=== PATIENT | female | born 1935 | race Caucasian/White ===

== ENCOUNTER 2022-07-25 09:03 | Inpatient (IN) ==
--- NOTE | 2022-07-25 10:39 | CT Scan Report ---
CT OF THE HEAD WITHOUT CONTRAST CLINICAL HISTORY: Fall. COMPARISON STUDY: No previous studies for comparison. TECHNIQUE: Helical axial images of the head were obtained without IV contrast. Automated exposure con trol was utilized for the study. A dose lowering technique was utilized adhering to the principles o f ALARA. FINDINGS: No acute intracranial hemorrhage, midline shift or mass effect is present. White matter hyp odensity suggests small vessel disease. The ventricular system is unremarkable. The basal cisterns ar e patent. No extra-axial collections are present. There are no findings to suggest acute dural sinus thrombosis or acute territorial infarct. There is no acute calvarial fracture. There is mild sinus mu cosal thickening. IMPRESSION: 1. No acute intracranial findings. 2. No acute calvarial fracture. ACT 112: Negative or not required by law. Electronically signed by: Conrado Mckeon M.D. 07/25/2022 10:37 AM
--- NOTE | 2022-07-25 10:47 | CT Scan Report ---
CERVICAL SPINE CT CT DOSE: 1132.33 mGy.cm HISTORY: fall TECHNIQUE: Multiaxial CT images of the cervical spine were performed and reformatted in the sagittal and coronal plane without the use of contrast. A dose lowering technique was utilized adhering to th e principles of ALARA. COMPARISON: None. FINDINGS: No fractures. No subluxation. Prevertebral soft tissues and the C1-C2 interval are intact. No pneumothorax. Moderate to severe degenerative changes within the cervical spine. Emphysema. IMPRESSION: No fractures within the cervical spine. ACT 112: Negative or not required by law. Electronically signed by: Franco Motta M.D. 07/25/2022 10:44 AM
--- NOTE | 2022-07-25 10:51 | CT Scan Report ---
ABDOMEN AND PELVIS CT WITHOUT CONTRAST CT DOSE: HISTORY: fall TECHNIQUE: Multiaxial CT images of the abdomen and pelvis were performed without contrast. A dose lo wering technique was utilized adhering to the principles of ALARA. COMPARISON STUDY: Abdomen and pelvis CT 11/20/2015. FINDINGS: The lung bases are clear. No pneumoperitoneum. No pneumatosis. Mildly displaced left superi or and inferior pubic rami fractures. Small pericardial effusion. Small amount of hemorrhage within t he left anterolateral extraperitoneal space likely secondary to the left pubic ring fractures. No sig nificant mass effect along the bladder. The bladder, uterus, and adnexa are unremarkable. No pelvic f ree fluid. 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 There is an ectatic abdominal aorta measuring up to 2.1 cm. A few small gallstones. No gallbladder w all thickening. The unenhanced liver, spleen, and pancreas are unremarkable. Bilateral adrenal gland thickening is likely age-related. There is an atrophic left kidney. Normal right kidney. No hydroneph rosis. No retroperitoneal lymphadenopathy. No bowel wall thickening or obstruction. The visualized ap pendix is unremarkable. IMPRESSION: 1. Mildly displaced left superior and inferior pubic rami fractures with a small amount of adjacent h emorrhage. 2. Additional findings as described above. ACT 112: Negative or not required by law. Electronically signed by: Franco Motta M.D. 07/25/2022 10:49 AM
--- NOTE | 2022-07-25 10:52 | XRay Report ---
XR chest 1V portable HISTORY: fall COMPARISON: Chest 01/27/2021. FINDINGS: No pneumothorax. No pleural effusions. The heart is normal in size. Emphysema. Degenerative changes within the shoulders. The lungs are clear. IMPRESSION: No acute process. ACT 112: Negative or not required by law. Electronically signed by: Franco Mtota M.D. 07/25/2022 10:51 AM
[2022-07-25 10:53] LABS: Albumin Globulin Ratio 1.1 (0.9-2); Albumin Level 3.9 gm/dl (3.4-5.0); BUN Creatinine Ratio 18.7 (10-20); Bilirubin,Total 0.8 mg/dl (0.2-1.0); Calcium 9.5 mg/dl (8.5-10.1); Creatinine Clr Calc Pharmacy 21.1 ml/min; Est GFR (African American) 41.2 ml/min; Est GFR (Non-African American) 35.5 ml/min; Globulin 3.6 gm/dl (2.5-4.0); Magnesium 1.6 mg/dl (1.7-2.4); Potassium 4.1 mmol/L (3.5-5.1); Total Protein 7.5 gm/dl (6.0-8.3)
--- NOTE | 2022-07-25 10:53 | XRay Report ---
XR femur LT 2V routine CLINICAL HISTORY: fall, Pain COMPARISON: CT of the abdomen and pelvis November 20, 2015. FINDINGS: There are acute mildly displaced fractures of the left superior and inferior pubic rami. N o acute fracture within the left femur is noted. Alignment of the left hip and left knee is anatomic. Extensive vascular calcification is incidentally noted. There is no left knee joint effusion. Chondr ocalcinosis within the menisci of the left knee is noted with severe patellofemoral compartment joint space narrowing. IMPRESSION: 1. Acute mildly displaced fractures of the left superior and inferior pubic rami. 2. No acute fracture within the left femur. ACT 112: Negative or not required by law. Electronically signed by: Conrado Mckeon M.D. 07/25/2022 10:52 AM
[2022-07-25 10:54] LABS: Basophils # (auto) 0.03 K/uL (0-0.2); Basophils % (auto) 0.4 %; Hematocrit (blood only) 45.9 % (37.0-47.0); Hemoglobin 15.1 g/dl (12.0-16.0); Immature Granulocytes # (auto) 0.03 K/uL (0.01-0.20); Immature Granulocytes % (auto) 0.4 %; Lymphocytes # (auto) 0.94 K/uL (1.2-3.4); Lymphocytes % (auto) 11.6 %; Mean Corpuscular Hgb Conc 32.9 g/dL (32.0-36.0); Mean Corpuscular Volume 88.3 fL (80.0-100.0); Mean Platelet Volume 10.5 fL (9.4-12.4); Monocytes # (auto) 0.87 K/uL (0.11-0.59); Monocytes % (auto) 10.8 %; Neutrophils # (auto) 6.21 K/uL (1.40-6.50); Neutrophils % (auto) 76.8 %; Platelet Count 202 K/uL (130-400); RDW Coefficient of Variation 13.2 % (11.5-14.5); RDW Standard Deviation 42.7 fL (36.4-46.3); White Blood Count 8.08 K/ul (4.8-10.8)
--- NOTE | 2022-07-25 10:56 | XRay Report ---
XR femur RT 2V routine CLINICAL HISTORY: fall, Pain COMPARISON: CT of the abdomen and pelvis November 20, 2015. FINDINGS: There is no acute fracture within the right femur. Severe right hip osteoarthritis is note d with chondrocalcinosis within the menisci and severe patellofemoral compartment joint space narrowi ng. There is severe right hip osteoarthritis. IMPRESSION: 1. No acute fracture within the right femur. 2. Severe right knee and hip osteoarthritis. ACT 112: Negative or not required by law. Electronically signed by: Conrado Mckeon M.D. 07/25/2022 10:55 AM
--- NOTE | 2022-07-25 10:56 | Emergency Department Note ---
Impression & Plan Fall, Fracture of multiple pubic rami, Ambulatory dysfunction, CKD (chronic kidney disease) (Ruled Out): CKD (chronic kidney disease), stage IV ED Provider Note Provider: Jourdan Greco MD DATE OF SERVICE: 07/25/2022 CHIEF COMPLAINT: Pain, unable to walk HISTORY OF PRESENT ILLNESS: Patient is a 87-year-old female history of CKD, COPD, and CAD presenting here via ambulance from home. Patient's daughter is present as well provides additional information. Patient is self not the best historian. EMS and patient's daughter who she does not like this and report patient is complaining of right and then left hip pain has been able to walk. Had some pain in the left thigh region for some time. Patient's daughter reports the patient evidently had some kind of fall yesterday and had some slurred speech and left-sided facial droop. Speech and facial droop is resolved. Patient's daughter states she did get a call at 9 PM last night the patient was taken to [facility] yesterday evening for evaluation diagnosed with UTI and she was to come pick her up. Patient herself has been resting overnight and then slid to the ground this morning but denies new significant fall or trauma. Patient denies significant abdominal or chest pain. Reports pain currently around the left hip region. Denies pain lower in the legs or significant arm or shoulder pain. Denies headache. She was prescribed Keflex antibiotic yesterday but is not picked up from the pharmacy as it was closed given the hour. Patient able to take several steps but not ambulatory to the bathroom by nursing report upon arrival here. PAST MEDICAL HISTORY: As noted above MEDICATIONS: Reviewed medications the patient brings with her she takes at home SOCIAL HISTORY: Resides at home with a daughter PHYSICAL EXAM: GENERAL: alert and oriented in no acute distress on stretcher however is not a good historian to recent events Head: normocephalic and atraumatic EYES: No injection, discharge or icterus. PERRL, EOMI. NECK: Trachea midline. Supple without significant midline tenderness ENT: Mucous membranes pink and moist. Pharynx without erythema or exudate. A dentulous LUNGS: Airway patent. No retractions. Breath sounds clear with good air entry bilaterally. HEART: Regular rate and rhythm. No chest wall tenderness ABDOMEN: Soft and non-tender, without guarding or rebound. BACK: No midline tenderness, no SI joint tenderness. No bilateral flank tenderness. SKIN: Acyanotic, warm, dry EXTREMITIES: Without swelling, tenderness or deformity with some scattered bruising noted to the left forearm with soft compartments and no significant bony tenderness to the left hand, wrist, forearm, or elbow. Good range of motion here and no tenderness of the left shoulder. Patient left lower extremity with some pain with ROM around the left hip and some left greater trochanteric pain. NEUROLOGICAL: No focal deficits. No aphasia. No facial droop or slurred speech. Normal strength and tone in the extremities. Sensation to gross touch normal. EK beats minute sinus tachycardia. No PVC or PAC. No acute ST segment elevation with some nonspecific T wave changes. QTc 448. CONTINUOUS CARDIAC MONITORING: was ordered and showed a heart rate of 90s-110s bpm in normal sinus rhythm to sinus tachycardia GCS 15. Patient's laboratory studies and imaging reviewed. Differential includes Fracture, dislocation, contusion, intra-abdominal, pneumothorax, intrathoracic, intracranial, neurologic, compartment syndrome, rhabdomyolysis, as well as other pathologies. IMPRESSION/MEDICAL DECISION MAKING: Patient reportedly evaluated yesterday diagnosed with UTI at outside hospital. Evidently suffered some kind of fall. Slid to the ground but no significant trauma today. Reporting some left hip discomfort. Some bruising to left forearm but no compartment syndrome. No significant bony tenderness good range of motion the upper extremities doubt injury here. CT of the head and cervical spine completed given the possible history of fall and also with some slurred speech and facial droop yesterday. No acute neurological symptoms noted here with family states the patient has had some decline in memory over time. May be somewhat worsened recently. Question if UTI could be driving this. X-rays of the pelvis and hip obtained as well given the possible fall and her pain here. Feels gross touch in the lower extremities and do not see other obvious injury to the lower extremities. EKG and troponin sent but lower suspicion for acute ACS. CKD chronically noted. No acute electrolyte abnormality otherwise noted or signs of significant rhabdomyolysis based on CK or hepatitis based on labs. Mild hypomagnesemia of 1.6. Imaging with evidence of mildly displaced left superior and inferior pubic rami fractures with a small amount of adjacent hemorrhage. Chest x-ray reviewed without evidence of significant pneumothorax or chest wall trauma noted by myself or radiology. No femur fractures noted by radiology on imaging of the femurs. Pain likely related to her pubic rami fracture. Given this given a dose of Tylenol for pain. Her ambulatory dysfunction likely related this and discussed likely need for rehab. Patient and family updated. Urinalysis ordered pending collection to exclude UTI. In shared decision making discussed with hospitalist for further care here given her pain and ambulatory dysfunction. DIAGNOSIS: Fall, pubic rami fractures, ambulatory dysfunction DISPOSITION: Hospitalist will evaluate Patient was agreeable with this plan. Past Med/Surg History Medical History CAD (coronary artery disease) CKD (chronic kidney disease), stage IV Colitis COPD (chronic obstructive pulmonary disease) COPD exacerbation Cough Elevated troponin Hyperlipidemia Hypoxia PVD (peripheral vascular disease) Retroperitoneal hematoma Right flank pain Social History (Updated 01/31/21 @ 07:41 by Charis Davey MD) Smoking Status: Former smoker Tobacco Type: Cigarettes Preferred Language: [place] Current Living Situation: Family Current Living Situation Comment: lives with daughter Feels Safe at Home: Yes Allergies Allergies Allergy/AdvReac Type Severity Reaction Status Date / Time No Known Allergies Allergy Verified 01/27/21 11:31 Home Meds Home Medications Medication Instructions Recorded Confirmed atorvastatin 40 mg tablet 40 mg PO DAILY 11/10/19 07/25/22 colestipol 1 gram tablet 2 g PO BID 11/10/19 07/25/22 omeprazole 20 mg capsule,delayed 20 mg PO DAILY 11/10/19 07/25/22 release sulfasalazine 500 mg tablet 500 mg PO BID 11/10/19 07/25/22 amlodipine 10 mg tablet 5 mg PO DAILY 01/27/21 07/25/22 hydrochlorothiazide 12.5 mg capsule 12.5 mg PO DAILY 01/27/21 07/25/22 metoprolol succinate 25 mg 25 mg PO DAILY 07/25/22 07/25/22 tablet,extended release 24 hr Results & Data (ED) Vital Signs Vital Signs - 24 hr 07/25/22 09:12 07/25/22 10:13 07/25/22 11:00 Temperature 36.7 C Temperature Source Oral Pulse Rate 96 H 110 H 102 H Pulse Rate from SpO2 Sensor 108 H Respiratory Rate 16 14 21 Respiratory Effort / Characteristics Non-Labored Spontaneous Respiratory Depth Normal Respiratory Pattern Regular Blood Pressure 172/112 H Blood Pressure Mean 132 Blood Pressure Position Sitting Pulse Oximetry 93 94 Oxygen Delivery Method Room Air Sepsis Recent Fever Within 48 Hours No Sepsis New/Unexplained Change in Mental Status No Sepsis Action Taken by Nursing No Action Required 07/25/22 12:00 Temperature Temperature Source Pulse Rate 110 H Pulse Rate from SpO2 Sensor Respiratory Rate 22 Respiratory Effort / Characteristics Respiratory Depth Respiratory Pattern Blood Pressure 158/92 H Blood Pressure Mean 114 Blood Pressure Position Pulse Oximetry Oxygen Delivery Method Sepsis Recent Fever Within 48 Hours Sepsis New/Unexplained Change in Mental Status Sepsis Action Taken by Nursing Laboratory Data 07/25/22 10:10 07/25/22 10:10 Lab Results 07/25/22 07/25/22 07/25/22 Range/Units 10:10 10:10 10:10 WBC 8.08 (4.8-10.8) K/ul RBC 5.20 (4.20-5.40) M/uL Hgb 15.1 (12.0-16.0) g/dl Hct 45.9 (37.0-47.0) % MCV 88.3 (80.0-100.0) fL MCH 29.0 (25.0-34.0) pg MCHC 32.9 (32.0-36.0) g/dL RDW Std Deviation 42.7 (36.4-46.3) fL RDW Coeff of Saulo 13.2 (11.5-14.5) % Plt Count 202 (130-400) K/uL MPV 10.5 (9.4-12.4) fL Immature Gran % (Auto) 0.4 % Neut % (Auto) 76.8 % Lymph % (Auto) 11.6 % [place] % (Auto) 10.8 % Eos % (Auto) 0.0 % Baso % (Auto) 0.4 % Neut # (Auto) 6.21 (1.40-6.50) K/uL Lymph # (Auto) 0.94 L (1.2-3.4) K/uL [place] # (Auto) 0.87 H (0.11-0.59) K/uL Eos # (Auto) 0.00 (0-0.50) K/uL Baso # (Auto) 0.03 (0-0.2) K/uL Immature Gran # (Auto) 0.03 (0.01-0.20) K/uL PT 11.1 (9.0-12.0) Seconds INR 1.0 (0.9-1.1) Sodium 141 (136-145) mmol/L Potassium 4.1 (3.5-5.1) mmol/L Chloride 104 (98-107) mmol/L Carbon Dioxide 30 (21-32) mmol/L Anion Gap 7 (3-11) BUN 25 H (6-23) mg/dl Creatinine 1.34 H (0.6-1.2) mg/dl Est Cr Clr Drug Dosing 21.1 ml/min Est GFR ( Amer) 41.2 ml/min Est GFR (Non-Af Amer) 35.5 ml/min BUN/Creatinine Ratio 18.7 (10-20) Glucose 92 (70-99(Fasting)) mg/dl Calcium 9.5 (8.5-10.1) mg/dl Magnesium 1.6 L (1.7-2.4) mg/dl Total Bilirubin 0.8 (0.2-1.0) mg/dl AST 24 (13-39) U/L ALT 14 (7-52) U/L Alkaline Phosphatase 72 (34-104) U/L Total Creatine Kinase 199 H (26-192) U/L Troponin I High Sens 23.1 H (0-14) pg/ml Total Protein 7.5 (6.0-8.3) gm/dl Albumin 3.9 (3.4-5.0) gm/dl Globulin 3.6 (2.5-4.0) gm/dl Albumin/Globulin Ratio 1.1 (0.9-2) TSH (0.300-4.500) uIu/ml Free T4 (0.61-1.60) ng/dl SARS-CoV-2, RNA, NAAT (NEGATIVE) 07/25/22 07/25/22 Range/Units 10:10 10:10 WBC (4.8-10.8) K/ul RBC (4.20-5.40) M/uL Hgb (12.0-16.0) g/dl Hct (37.0-47.0) % MCV (80.0-100.0) fL MCH (25.0-34.0) pg MCHC (32.0-36.0) g/dL RDW Std Deviation (36.4-46.3) fL RDW Coeff of Saulo (11.5-14.5) % Plt Count (130-400) K/uL MPV (9.4-12.4) fL Immature Gran % (Auto) % Neut % (Auto) % Lymph % (Auto) % [place] % (Auto) % Eos % (Auto) % Baso % (Auto) % Neut # (Auto) (1.40-6.50) K/uL Lymph # (Auto) (1.2-3.4) K/uL [place] # (Auto) (0.11-0.59) K/uL Eos # (Auto) (0-0.50) K/uL Baso # (Auto) (0-0.2) K/uL Immature Gran # (Auto) (0.01-0.20) K/uL PT (9.0-12.0) Seconds INR (0.9-1.1) Sodium (136-145) mmol/L Potassium (3.5-5.1) mmol/L Chloride (98-107) mmol/L Carbon Dioxide (21-32) mmol/L Anion Gap (3-11) BUN (6-23) mg/dl Creatinine (0.6-1.2) mg/dl Est Cr Clr Drug Dosing ml/min Est GFR ( Amer) ml/min Est GFR (Non-Af Amer) ml/min BUN/Creatinine Ratio (10-20) Glucose (70-99(Fasting)) mg/dl Calcium (8.5-10.1) mg/dl Magnesium (1.7-2.4) mg/dl Total Bilirubin (0.2-1.0) mg/dl AST (13-39) U/L ALT (7-52) U/L Alkaline Phosphatase (34-104) U/L Total Creatine Kinase (26-192) U/L Troponin I High Sens (0-14) pg/ml Total Protein (6.0-8.3) gm/dl Albumin (3.4-5.0) gm/dl Globulin (2.5-4.0) gm/dl Albumin/Globulin Ratio (0.9-2) TSH 4.645 H (0.300-4.500) uIu/ml Free T4 1.21 (0.61-1.60) ng/dl SARS-CoV-2, RNA, NAAT NEGATIVE (NEGATIVE) Administered Medications Discontinued Medications Acetaminophen (Acetaminophen 500 Mg Tab) 1,000 mg PO NOW STA Stop: 07/25/22 11:26 Last Admin: 07/25/22 13:22 Dose: Not Given Documented By: RDD Imaging Data Radiologist's Impression: Abdomen/Pelvis CT 07/25/22 09:[address] WITHOUT CONTRAST CT DOSE: HISTORY: fall TECHNIQUE: Multiaxial CT images of the abdomen and pelvis were performed without contrast. A dose lowering technique was utilized adhering to the principles of ALARA. COMPARISON STUDY: Abdomen and pelvis CT 11/20/2015. FINDINGS: The lung bases are clear. No pneumoperitoneum. No pneumatosis. Mildly displaced left superior and inferior pubic rami fractures. Small pericardial effusion. Small amount of hemorrhage within the left anterolateral extraperitoneal space likely secondary to the left pubic ring fractures. No s ignificant mass effect along the bladder. The bladder, uterus, and adnexa are unremarkable. No pelvic free fluid. 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 There is an ectatic abdominal aorta measuring up to 2.1 cm. A few small gallstones. No gallbladder wall thickening. The unenhanced liver, spleen, and pancreas are unremarkable. Bilateral adrenal gland thickening is likely age-related. There is an atrophic left kidney. Normal right kidney. No hydronephrosis. No retroperitoneal lymphadenopathy. No bowel wall thickening or obstruction. The visualized appendix is unremarkable. IMPRESSION: 1. Mildly displaced left superior and inferior pubic rami fractures with a small amount of adjacent hemorrhage. 2. Additional findings as described above. ACT 112: Negative or not required by law. Electronically signed by: Franco Motta M.D. 07/25/2022 10:[address] 07/25/22 09:[address] DOSE: 1132.33 mGy.cm HISTORY: fall TECHNIQUE: Multiaxial CT images of the cervical spine were performed and reformatted in the sagittal and coronal plane without the use of contrast. A dose lowering technique was utilized adhering to the principles of ALARA. COMPARISON: None. FINDINGS: No fractures. No subluxation. Prevertebral soft tissues and the C1-C2 interval are intact. No pneumothorax. Moderate to severe degenerative changes within the cervical spine. Emphysema. IMPRESSION: No fractures within the cervical spine. ACT 112: Negative or not required by law. Electronically signed by: Franco Motta M.D. 07/25/2022 10:44 AM Chest X-Ray 07/25/22 09:44 XR chest 1V portable HISTORY: fall COMPARISON: Chest 01/27/2021. FINDINGS: No pneumothorax. No pleural effusions. The heart is normal in size. Emphysema. Degenerative changes within the shoulders. The lungs are clear. IMPRESSION: No acute process. ACT 112: Negative or not required by law. Electronically signed by: Franco Motta M.D. 07/25/2022 10:51 AM Femur X-Ray 07/25/22 09:44 XR femur RT 2V routine CLINICAL HISTORY: fall, Pain COMPARISON: CT of the abdomen and pelvis November 20, 2015. FINDINGS: There is no acute fracture within the right femur. Severe right hip osteoarthritis is noted with chondrocalcinosis within the menisci and severe patellofemoral compartment joint space narrowing. There is severe right hip osteoarthritis. IMPRESSION: 1. No acute fracture within the right femur. 2. Severe right knee and hip osteoarthritis. ACT 112: Negative or not required by law. Electronically signed by: Conrado Mckeon M.D. 07/25/2022 10:55 AM Femur X-Ray 07/25/22 09:44 XR femur LT 2V routine CLINICAL HISTORY: fall, Pain COMPARISON: CT of the abdomen and pelvis November 20, 2015. FINDINGS: There are acute mildly displaced fractures of the left superior and inferior pubic rami. No acute fracture within the left femur is noted. Alignment of the left hip and left knee is anatomic. Extensive vascular calcification is incidentally noted. There is no left knee joint effusion. Chondrocalcinosis within the menisci of the left knee is noted with severe patellofemoral compartment joint space narrowing. IMPRESSION: 1. Acute mildly displaced fractures of the left superior and inferior pubic rami. 2. No acute fracture within the left femur. ACT 112: Negative or not required by law. Electronically signed by: Conrado Mckeon M.D. 07/25/2022 10:[address] 07/25/22 09:44 CT OF THE HEAD WITHOUT CONTRAST CLINICAL HISTORY: Fall. COMPARISON STUDY: No previous studies for comparison. TECHNIQUE: Helical axial images of the head were obtained without IV contrast. Automated exposure control was utilized for the study. A dose lowering technique was utilized adhering to the principles of ALARA. FINDINGS: No acute intracranial hemorrhage, midline shift or mass effect is present. White matter hypodensity suggests small vessel disease. The ventricular system is unremarkable. The basal cisterns are patent. No extra-axial santa ections are present. There are no findings to suggest acute dural sinus thrombosis or acute territorial infarct. There is no acute calvarial fracture. There is mild sinus mucosal thickening. IMPRESSION: 1. No acute intracranial findings. 2. No acute calvarial fracture. ACT 112: Negative or not required by law. Electronically signed by: Conrado Mckeon M.D. 07/25/2022 10:37 AM Discharge Plan Visit Data Chief Complaint: Urinary Symptoms ED Provider: Jourdan Greco Discharge Problem: Fall, Fracture of multiple pubic rami, Ambulatory dysfunction, CKD (chronic kidney disease) Discharge Problem: (Ruled Out): CKD (chronic kidney disease), stage IV Patient Disposition: Admitted As Inpatient Discharge Instructions Interventions: ED Discharge Assessment Last Done: 07/25/22 14:08
[2022-07-25 10:59] LABS: Troponin I High Sensitivity 23.1 pg/ml (0-14)
[2022-07-25 11:04] LABS: Prothrombin Time 11.1 Seconds (9.0-12.0)
[2022-07-25 11:08] LABS: Thyroid Stimulating Hormone 4.645 uIu/ml (0.300-4.500)
[2022-07-25] MEDS ORDERED: ACETAMINOPHEN 500 MG TAB PO STA (11:25)
[2022-07-25 11:56] LABS: T4 Free Thyroxine 1.21 ng/dl (0.61-1.60)
--- NOTE | 2022-07-25 12:01 | History & Physical Report ---
Date of Service July 25, 2022 Assessment & Plan (1) Fall: (2) Fracture of multiple pubic rami: Plan: Unwitnessed fall Pelvic fracture with adjacent hemorrhage Ambulatory dysfunction secondary to above --CT head:No acute intracranial findings.. No acute calvarial fracture. --Left Femur:Acute mildly displaced fractures of the left superior and inferior pubic rami. No acute fracture within the left femur. --Right Femur:No acute fracture within the right femur. Severe right knee and hip osteoarthritis. --CXR:No acute process. --CT ABD:Mildly displaced left superior and inferior pubic rami fractures with a small amount of adjacent hemorrhage. --Neck CT:No fractures within the cervical spine. -Fall precautions, PT OT Orthopedics consulted to help with recommendations for possible Brace Hypertensive urgency Secondary to missed hypertension meds Pain could be contributing as well Resume home medications Monitor Hypomagnesemia Replete electrolytes as needed Mild troponin elevation likely secondary to CKD, hypertensive urgency Denies any chest pain, dyspnea Trend cardiac enzymes Mild elevation of CK Likely secondary to trauma Hold statin Monitor CK Suspected UTI Urine analysis pending We will consider antibiotics if UA suggestive of UTI COPD Noncompliant with recommendations Currently not on medications Currently not using home oxygen as previously recommended Collagenous colitis Continue sulfasalazine, colestipol GERD Continue Protonix CKD stage IV Baseline creatinine ~ 1.6 Monitor renal function Avoid nephrotoxic agents as able Coronary artery disease S/P stent Renal artery stenosis As per records Currently not on Aspirin Statin on hold due to elevated CK DVT Px SCDs for now Re: Pelvic hemorrhage CODE STATUS DNI/DNR as per my discussion with patient and family History of Present Illness Chief Complaint: Fall, Ambulatory dysfunction Primary Care Provider: Katelyn Orellana DO Patient is an 87-year-old female with history of coronary artery disease, COPD, CKD, renal artery stenosis, hypertension, GERD, dyslipidemia, collagenous colitis, chronic oxygen dependency (currently not using) and other medical problems presents with history of fall and ambulatory dysfunction. Patient is a poor historian. Most of the history is obtained from patient's daughter at bedside. As per the patient's daughter, patient had an unwitnessed fall yesterday. Patient is unsure about the events prior to the fall. She denies any dizziness, head trauma, loss of consciousness. Since the fall patient has been having difficulty with ambulation associated with hip pain. Patient was also thought to have a transient slurred speech associated with facial droop although daughter believes it could be unreliable history. Patient was evaluated at [facility] yesterday and was thought to have urinary tract infection and was discharged home. Patient was to start on Keflex which patient has not taken yet. Patient had slid to the ground this morning but denies any significant trauma. Denies any history of chest pain, dyspnea, dizziness, pedal edema, cough, hemoptysis, fever, chills, headache, weakness, numbness, change in vision, double/blurry vision, vertigo, bowel/bladder incontinence, nausea, v omiting, abdominal pain, blood in stools, diarrhea, dysuria, hematuria, recent change in medications. Patient admits to not taking her home medications this morning. She also reports has not been evaluated by her PCP for about 2 years. Patient stopped taking medications for COPD and has not been currently using oxygen as previously recommended. Allergies Allergy/AdvReac Type Severity Reaction Status Date / Time No Known Allergies Allergy Verified 01/27/21 11:31 Home Medications Medication Instructions Recorded Confirmed Type atorvastatin 40 mg tablet 40 mg PO DAILY 11/10/19 07/25/22 History colestipol 1 gram tablet 2 g PO BID 11/10/19 07/25/22 History omeprazole 20 mg capsule,delayed 20 mg PO DAILY 11/10/19 07/25/22 History release sulfasalazine 500 mg tablet 500 mg PO BID 11/10/19 07/25/22 History amlodipine 10 mg tablet 5 mg PO DAILY 01/27/21 07/25/22 History hydrochlorothiazide 12.5 mg capsule 12.5 mg PO DAILY 01/27/21 07/25/22 History metoprolol succinate 25 mg 25 mg PO DAILY 07/25/22 07/25/22 History tablet,extended release 24 hr Past Med/Surg History Medical History CAD (coronary artery disease) CKD (chronic kidney disease), stage IV Colitis COPD (chronic obstructive pulmonary disease) COPD exacerbation Cough Elevated troponin Hyperlipidemia Hypoxia PVD (peripheral vascular disease) Retroperitoneal hematoma Right flank pain Surgical History Stented coronary artery Family History Mother Cancer Social History Smoking Status: Former smoker Tobacco Type: Cigarettes Preferred Language: Guamanian Current Living Situation: Family Current Living Situation Comment: lives with daughter Feels Safe at Home: Yes Review of Systems Review of Systems: All systems reviewed & are unremarkable except as noted in Subjective Physical Exam Physical Exam: Physical Exam: Vitals signs as noted above General Appearance: Thin, frail, elderly, no apparent distress Head: normocephalic, Atraumatic Eyes: normal inspection, EOMI Neck: supple, Trachea midline Respiratory/Chest: Decreased breath sounds, CTA, No accessory muscle use Cardiovascular: S1, S2, No murmur, tachycardia Abdomen/GI:Soft, Non tender, Bowel sounds present Extremities/Musculoskeletal:normal inspection, no edema Neurologic/Psych:AAOX2, grossly no focal neurological deficits, + hip tenderness, ROM Skin: normal color, warm, + multiple bruises, ecchymosis on extremities Results & Data Results & Data ([facility]) Vital Signs (Past 12 Hours) Vital Signs Temp Pulse Resp BP Pulse Ox O2 Del Method 07/25/22 09:12 36.7 C 96 H 16 172/112 H 93 Room Air Laboratory Results Short CBC 07/25/22 Range/Units 10:10 WBC 8.08 (4.8-10.8) K/ul Hgb 15.1 (12.0-16.0) g/dl Hct 45.9 (37.0-47.0) % Plt Count 202 (130-400) K/uL BMP 07/25/22 10:10 Sodium 141 Potassium 4.1 Chloride 104 Carbon Dioxide 30 BUN 25 H Creatinine 1.34 H Glucose 92 Calcium 9.5 Cardiac Enzymes 07/25/22 Range/Units 10:10 Total Creatine Kinase 199 H (26-192) U/L Liver Function 07/25/22 Range/Units 10:10 Total Bilirubin 0.8 (0.2-1.0) mg/dl AST 24 (13-39) U/L ALT 14 (7-52) U/L Alkaline Phosphatase 72 (34-104) U/L Albumin 3.9 (3.4-5.0) gm/dl Diagnostic Findings --CT head:No acute intracranial findings.. No acute calvarial fracture. --Left Femur:Acute mildly displaced fractures of the left superior and inferior pubic rami. No acute fracture within the left femur. --Right Femur:No acute fracture within the right femur. Severe right knee and hip osteoarthritis. --CXR:No acute process. ECG Additional Comments: EKG: Sinus tachycardia, nonspecific ST-T wave changes, QTc 448. (1) Fall Encounter type: subsequent encounter Qualified Code(s): W19.XXXD - Unspecified fall, subsequent encounter (2) Fracture of multiple pubic rami Encounter type: subsequent encounter Fracture healing: with routine healing Fracture type: closed Laterality: left Qualified Code(s): S32.592D - Other specified fracture of left pubis, subsequent encounter for fracture with routine healing
[2022-07-25] MEDS ORDERED: POLYETHYLENE (MIRALAX) 17 GM PACK PO PRN (14:36)
[2022-07-25] MEDS ORDERED: MAGNESIUM SULFATE / D5W 1 GM/100 ML BAG IV ONE (14:36)
[2022-07-25] MEDS ORDERED: SODIUM CHLORIDE 0.9% 1000ML 1,000 ML IV ONE (14:36)
[2022-07-25] MEDS ORDERED: ONDANSETRON INJ 2 MG/ML 2 ML VIAL IV PRN (14:36)
[2022-07-25] MEDS: METOPROLOL SUCC 25MG EXT REL TAB PO SCH (15:05)
[2022-07-25] MEDS: amLODIPine BESYLATE 5 MG TAB PO SCH (15:05)
[2022-07-25 16:31] LABS: Appearance Urine Clear (Clear); Bacteria Urine Automated Negative (Negative); Bilirubin Urine Negative (Negative); Blood Urine Trace (Negative); Color Urine Yellow; Epithelial Cell Urine Auto 0-5 /lpf (0-5); Glucose Urine UA Negative (Negative); Ketones Urine Trace (Negative); Leukocyte Esterase Urine Negative (Negative); Nitrite Urine Negative (Negative); Protein Urine 2+ (Negative); RBC Urine Automated 0-4 /hpf (0-4); Specific Gravity Urine 1.016 (1.000-1.030); Urobilinogen Urine Negative (Negative)
[2022-07-25] MEDS: sulfaSALAzine 500 MG TABLET PO SCH (20:15)
[2022-07-25] MEDS: ACETAMINOPHEN 325 MG TAB PO PRN (20:16)
[2022-07-25] MEDS: COLESTIPOL HCL 1 GM TAB PO SCH (21:19)
[2022-07-26] MEDS ORDERED: LACTATED RINGER'S 1,000 ML IV ONE (05:42)
[2022-07-26] MEDS ORDERED: SODIUM CHLORIDE 0.9% 1000ML 1,000 ML IV ONE (05:45)
[2022-07-26] MEDS: ACETAMINOPHEN 325 MG TAB PO PRN (06:03)
[2022-07-26 06:41] LABS: Hemoglobin 13.6 g/dl (12.0-16.0); Mean Corpuscular Hemoglobin 29.4 pg (25.0-34.0); Mean Corpuscular Hgb Conc 32.4 g/dL (32.0-36.0); Mean Corpuscular Volume 90.7 fL (80.0-100.0); Mean Platelet Volume 10.6 fL (9.4-12.4); Platelet Count 184 K/uL (130-400); RDW Coefficient of Variation 13.5 % (11.5-14.5); RDW Standard Deviation 44.7 fL (36.4-46.3); Red Blood Count 4.63 M/uL (4.20-5.40); White Blood Count 5.82 K/ul (4.8-10.8)
[2022-07-26 06:57] LABS: BUN Creatinine Ratio 22.2 (10-20); Calcium 8.9 mg/dl (8.5-10.1); Creatinine Clr Calc Pharmacy 23.7 ml/min; Est GFR (African American) 44.4 ml/min; Est GFR (Non-African American) 38.3 ml/min
[2022-07-26] MEDS: METOPROLOL SUCC 25MG EXT REL TAB PO SCH (08:02)
[2022-07-26] MEDS: amLODIPine BESYLATE 5 MG TAB PO SCH (08:02)
[2022-07-26] MEDS: PANTOprazole 40 MG TAB PO SCH (08:02)
[2022-07-26] MEDS: COLESTIPOL HCL 1 GM TAB PO SCH ×2 (08:02→20:02)
[2022-07-26] MEDS: sulfaSALAzine 500 MG TABLET PO SCH ×2 (08:02→20:02)
--- NOTE | 2022-07-26 08:44 | Orthopedic Consultation ---
Date of Consultation July 26, 2022 Assessment & Plan (1) Fracture of left inferior pubic ramus: The x-ray findings were discussed with the patient. The patient may weight-bear as tolerated on the left lower extremity. If she has increased pain, recommend use of a walker and at this time probably at least 1 assist. She may increase her weightbearing as she tolerates. Orthopedics will sign off at this time. She may follow-up with Dr. Silvestre in approximately 6-8 weeks for repeat x-rays to evaluate healing of the fractures. Thank you for the opportunity to participate in the patient's care. (2) Fracture of superior ramus of left pubis: History of Present Illness Reason for Consultation: Left pubic ramus fracture Attending Physician: Mike Salas MD History of Present Illness This is a patient who had an unwitnessed fall yesterday. The patient was unaware of why she was in the hospital while discussing her history during today's visit. Review of the chart notes a family member found her after a fall. She was brought to the emergency room where x-rays were performed and she was noted to have mildly displaced inferior and superior pubic ramus fractures on the left side. Orthopedics was consulted for recommendations of treatment. Allergies Allergy/AdvReac Type Severity Reaction Status Date / Time No Known Allergies Allergy Verified 01/27/21 11:31 Home Medications Medication Instructions Recorded Confirmed Type atorvastatin 40 mg tablet 40 mg PO DAILY 11/10/19 07/25/22 History colestipol 1 gram tablet 2 g PO BID 11/10/19 07/25/22 History omeprazole 20 mg capsule,delayed 20 mg PO DAILY 11/10/19 07/25/22 History release sulfasalazine 500 mg tablet 500 mg PO BID 11/10/19 07/25/22 History amlodipine 10 mg tablet 5 mg PO DAILY 01/27/21 07/25/22 History hydrochlorothiazide 12.5 mg capsule 12.5 mg PO DAILY 01/27/21 07/25/22 History metoprolol succinate 25 mg 25 mg PO DAILY 07/25/22 07/25/22 History tablet,extended release 24 hr Patient History Medical History CAD (coronary artery disease) CKD (chronic kidney disease), stage IV Colitis COPD (chronic obstructive pulmonary disease) COPD exacerbation Cough Elevated troponin Hyperlipidemia Hypoxia PVD (peripheral vascular disease) Retroperitoneal hematoma Right flank pain Surgical History Stented coronary artery Family History Mother Cancer Social History Smoking Status: Former smoker Tobacco Type: Cigarettes Second Hand Exposure: No; Do You Dip or Chew Tobacco: No; Tobacco Cessation Education Requested by Patient: No Hx Alcohol Use: No Hx Substance Use: No Preferred Language: Palauan Communication Ability: Effective [employer]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 [employer] Required: No Beliefs That Will Affect Care: None Current Living Situation: Family Current Living Situation Comment: lives with daughter Other Information That Helps Us Care for You: No Feels Safe at Home: Yes Safety Concerns: Feels Safe At This Time Physical Exam Constitutional: + thin and cooperative; no acute distress (Sitting in bed and eating breakfast.) Musculoskeletal: Hip: + joint line tenderness (Some tenderness of the left buttocks.); log roll test negative Neurologic: normal touch/pain/proprioception Psychiatric: Orientation: alert and oriented to place Results & Data ([facility]) Vital Signs (Past 12 Hours) Vital Signs Temp Pulse Pulse Resp BP Pulse Ox O2 Del Method 07/26/22 08:12 36.8 C 110 H 16 180/84 H 96 Room Air 07/25/22 22:01 91 H 07/26/22 07:20 90 07/26/22 04:00 36.4 C L 89 20 152/73 H 92 Room Air 07/25/22 22:36 36.3 C L 96 H 18 155/80 H 92 Room Air Diagnostic Findings X-rays of bilateral hips reviewed. There is minimally displaced inferior and superior pubic ramus fractures on the left side. No femur fractures noted on either side.
[2022-07-26] MEDS ORDERED: cloNIDine HCL 0.1 MG TAB PO PRN (09:20)
--- NOTE | 2022-07-26 16:48 | Hospitalist Progress Note ---
Date of Service July 26, 2022 Assessment & Plan (1) Fall: (2) Fracture of multiple pubic rami: Plan: Unwitnessed fall Pelvic fracture with adjacent hemorrhage Ambulatory dysfunction secondary to above --CT head:No acute intracranial findings.. No acute calvarial fracture. --Left Femur:Acute mildly displaced fractures of the left superior and inferior pubic rami. No acute fracture within the left femur. --Right Femur:No acute fracture within the right femur. Severe right knee and hip osteoarthritis. --CXR:No acute process. --CT ABD:Mildly displaced left superior and inferior pubic rami fractures with a small amount of adjacent hemorrhage. --Neck CT:No fractures within the cervical spine. -Fall precautions, PT OT Appreciate Orthopedics Input Hypertensive urgency Secondary to missed hypertension meds Pain could be contributing as well Continue amlodipine, metoprolol Clonidine as needed Monitor Hypomagnesemia Replete electrolytes as needed Mild troponin elevation likely secondary to CKD, hypertensive urgency Denies any chest pain, dyspnea Trend cardiac enzymes Mild elevation of CK Likely secondary to trauma Hold statin Monitor CK Received IV fluids Suspected UTI at [facility] Urine analysis Normal Asymptomatic No indication for antibiotics COPD Noncompliant with recommendations Currently not on medications Currently not using home oxygen as previously recommended Collagenous colitis Continue sulfasalazine, colestipol GERD Continue Protonix CKD stage IV Baseline creatinine ~ 1.6 Monitor renal function Avoid nephrotoxic agents as able Coronary artery disease S/P stent Renal artery stenosis As per records Currently not on Aspirin Statin on hold due to elevated CK DVT Px SCDs for now Re: Pelvic hemorrhage CODE STATUS DNI/DNR as per my discussion with patient and family Disposition Needs rehab Admission and Anticipated Discharge Date Admission Date: July 25, 2022 Subjective Patient is seen and examined at bedside States having left hip pain especially with movement, ambulation Eager to get discharged Denies any chest pain, dyspnea, dizziness, nausea, abdominal pain Family at bedside No other complaints Review of Systems Review of Systems: All systems reviewed & are unremarkable except as noted in Subjective Physical Exam Physical Exam: Physical Exam: Vitals signs as noted above General Appearance: Thin, frail, elderly, no apparent distress Head: normocephalic, Atraumatic Eyes: normal inspection, EOMI Neck: supple, Trachea midline Respiratory/Chest: Decreased breath sounds, CTA, No accessory muscle use Cardiovascular: S1, S2, No murmur, tachycardia Abdomen/GI:Soft, Non tender, Bowel sounds present Extremities/Musculoskeletal:normal inspection, no edema Neurologic/Psych:AAOX2, grossly no focal neurological deficits, + hip tenderness, ROM Skin: normal color, warm, + multiple bruises, ecchymosis on extremities Results & Data Results & Data ([facility]) Vital Signs (Past 12 Hours) Vital Signs Temp Pulse Pulse Resp BP BP Pulse Ox 07/26/22 15:45 84 07/26/22 14:56 36.8 C 98 H 16 144/72 H 96 07/26/22 11:30 36 C L 94 H 16 137/86 94 07/26/22 08:12 36.8 C 110 H 16 180/84 H 96 07/26/22 07:20 90 O2 Del Method 07/26/22 15:45 07/26/22 14:56 Room Air 07/26/22 11:30 Room Air 07/26/22 08:12 Room Air 07/26/22 07:20 Laboratory Results Short CBC 07/26/22 Range/Units 05:50 WBC 5.82 (4.8-10.8) K/ul Hgb 13.6 (12.0-16.0) g/dl Hct 42.0 (37.0-47.0) % Plt Count 184 (130-400) K/uL BMP 07/26/22 05:50 Sodium 140 Potassium 4.0 Chloride 107 Carbon Dioxide 25 BUN 28 H Creatinine 1.26 H Glucose 67 L Calcium 8.9 Cardiac Enzymes 07/26/22 Range/Units 05:50 Total Creatine Kinase 228 H (26-192) U/L (1) Fall Encounter type: subsequent encounter Qualified Code(s): W19.XXXD - Unspecified fall, subsequent encounter (2) Fracture of multiple pubic rami Encounter type: subsequent encounter Fracture healing: with routine healing Fracture type: closed Laterality: left Qualified Code(s): S32.592D - Other specified fracture of left pubis, subsequent encounter for fracture with routine healing
[2022-07-26] MEDS: oxyCODONE/ACETAMINOPHEN 5mg/325mg TAB PO PRN (17:03)
--- NOTE | 2022-07-26 22:35 | Electrocardiogram Report ---
Test Reason : Blood Pressure : / mmHG Vent. Rate : 103 BPM Atrial Rate : 103 BPM P-R Int : 144 ms QRS Dur : 080 ms QT Int : 342 ms P-R-T Axes : 078 028 113 degrees QTc Int : 448 ms Poor data quality, interpretation may be adversely affected Sinus tachycardia Nonspecific ST and T wave abnormality Abnormal ECG When compared with ECG of 27-JAN-2021 09:48, No significant change was found Confirmed by Mike Johnson ([id number] on 07/26/2022 10:35:14 PM Referred By: REFERRED SELF Confirmed By:Mike Johnson
--- NOTE | 2022-07-27 06:13 | Electrocardiogram Report ---
Test Reason : Blood Pressure : / mmHG Vent. Rate : 089 BPM Atrial Rate : 089 BPM P-R Int : 164 ms QRS Dur : 080 ms QT Int : 362 ms P-R-T Axes : 082 032 111 degrees QTc Int : 440 ms Normal sinus rhythm Abnormal ECG When compared with ECG of 25-JUL-2022 10:08, Nonspecific T wave abnormality now evident in Inferior leads Inverted T waves have replaced nonspecific T wave abnormality in Anterior leads Confirmed by Mike Johnson ([id number] on 07/27/2022 6:13:36 AM Referred By: REFERRED SELF Confirmed By:Mike Johnson
[2022-07-27 07:52] LABS: Creatinine Clr Calc Pharmacy 24.7 ml/min; Est GFR (African American) 47.1 ml/min; Est GFR (Non-African American) 40.6 ml/min; Magnesium 1.7 mg/dl (1.7-2.4); Potassium 3.8 mmol/L (3.5-5.1)
[2022-07-27] MEDS: sulfaSALAzine 500 MG TABLET PO SCH ×2 (08:33→20:20)
[2022-07-27] MEDS: amLODIPine BESYLATE 5 MG TAB PO SCH (08:34)
[2022-07-27] MEDS: PANTOprazole 40 MG TAB PO SCH (08:34)
[2022-07-27] MEDS: COLESTIPOL HCL 1 GM TAB PO SCH ×2 (09:50→20:20)
[2022-07-27] MEDS: METOPROLOL SUCC 50MG EXT REL TAB PO SCH (10:00)
--- NOTE | 2022-07-27 13:58 | Hospitalist Progress Note ---
Date of Service July 27, 2022 Assessment & Plan (1) Fall: (2) Fracture of multiple pubic rami: Plan: Unwitnessed fall Pelvic fracture with adjacent hemorrhage Possible Age-related osteoporosis with current pathological fracture, L inferior and superior pubic ramus Ambulatory dysfunction secondary to above --CT head:No acute intracranial findings.. No acute calvarial fracture. --Left Femur:Acute mildly displaced fractures of the left superior and inferior pubic rami. No acute fracture within the left femur. --Right Femur:No acute fracture within the right femur. Severe right knee and hip osteoarthritis. --CXR:No acute process. --CT ABD:Mildly displaced left superior and inferior pubic rami fractures with a small amount of adjacent hemorrhage. --Neck CT:No fractures within the cervical spine. -Fall precautions, PT OT Appreciate Orthopedics Input Needs Rehab placement Plan to discharge once placement available Hypertensive urgency Secondary to missed hypertension meds Pain could be contributing as well Continue amlodipine, metoprolol Metoprolol dose increased to 50mg daily Clonidine as needed Monitor Hypomagnesemia Replete electrolytes as needed Mild troponin elevation likely secondary to CKD, hypertensive urgency Denies any chest pain, dyspnea Trend cardiac enzymes Mild elevation of CK Likely secondary to trauma Hold statin Monitor CK Received IV fluids Suspected UTI at [facility] Urine analysis Normal Asymptomatic No indication for antibiotics COPD Noncompliant with recommendations Currently not on medications Currently not using home oxygen as previously recommended Collagenous colitis Continue sulfasalazine, colestipol GERD Continue Protonix CKD stage IV Baseline creatinine ~ 1.6 Monitor renal function Avoid nephrotoxic agents as able Coronary artery disease S/P stent Renal artery stenosis As per records Currently not on Aspirin Statin on hold due to elevated CK DVT Px SCDs for now Re: Pelvic hemorrhage CODE STATUS DNI/DNR as per my discussion with patient and family Disposition Needs rehab Admission and Anticipated Discharge Date Admission Date: July 25, 2022 Subjective Patient is seen and examined at bedside No new complaints No significant left hip pain Denies any chest pain, dyspnea, dizziness, nausea, abdominal pain Waiting for placement Review of Systems Review of Systems: All systems reviewed & are unremarkable except as noted in Subjective Physical Exam Physical Exam: Physical Exam: Vitals signs as noted above General Appearance: Thin, frail, elderly, no apparent distress Head: normocephalic, Atraumatic Eyes: normal inspection, EOMI Neck: supple, Trachea midline Respiratory/Chest: Decreased breath sounds, CTA, No accessory muscle use Cardiovascular: S1, S2, No murmur, tachycardia Abdomen/GI:Soft, Non tender, Bowel sounds present Extremities/Musculoskeletal:normal inspection, no edema Neurologic/Psych:AAOX2, grossly no focal neurological deficits, + hip tenderness, ROM Skin: normal color, warm, + multiple bruises, ecchymosis on extremities Results & Data Results & Data ([facility]) Vital Signs (Past 12 Hours) Vital Signs Temp Pulse Resp BP Pulse Ox O2 Del Method 07/27/22 11:08 36.7 C 96 H 16 147/73 H 90 Room Air 07/27/22 07:37 36.6 C 92 H 16 171/73 H 91 Room Air 07/27/22 03:10 36.7 C 88 18 177/79 H 91 Room Air Laboratory Results BMP 07/27/22 07:10 Sodium 139 Potassium 3.8 Chloride 104 Carbon Dioxide 25 BUN 24 H Creatinine 1.20 Glucose 70 Calcium 9.0 (1) Fall Encounter type: subsequent encounter Qualified Code(s): W19.XXXD - Unspecified fall, subsequent encounter (2) Fracture of multiple pubic rami Encounter type: subsequent encounter Fracture healing: with routine healing Fracture type: closed Laterality: left Qualified Code(s): S32.592D - Other specified fracture of left pubis, subsequent encounter for fracture with routine healing
[2022-07-27] MEDS: oxyCODONE/ACETAMINOPHEN 5mg/325mg TAB PO PRN (14:08)
[2022-07-28 06:49] LABS: Hemoglobin 13.2 g/dl (12.0-16.0)
[2022-07-28] MEDS: PANTOprazole 40 MG TAB PO SCH (08:07)
[2022-07-28] MEDS: sulfaSALAzine 500 MG TABLET PO SCH (08:07)
[2022-07-28] MEDS: amLODIPine BESYLATE 5 MG TAB PO SCH (08:07)
[2022-07-28] MEDS: METOPROLOL SUCC 50MG EXT REL TAB PO SCH (08:08)
[2022-07-28] MEDS: COLESTIPOL HCL 1 GM TAB PO SCH (10:12)
--- NOTE | 2022-07-28 11:56 | Hospitalist Progress Note ---
Date of Service July 28, 2022 Assessment & Plan (1) Fall: (2) Fracture of multiple pubic rami: Plan: Unwitnessed fall Pelvic fracture with adjacent hemorrhage Possible Age-related osteoporosis with current pathological fracture, L inferior and superior pubic ramus Ambulatory dysfunction secondary to above --CT head:No acute intracranial findings.. No acute calvarial fracture. --Left Femur:Acute mildly displaced fractures of the left superior and inferior pubic rami. No acute fracture within the left femur. --Right Femur:No acute fracture within the right femur. Severe right knee and hip osteoarthritis. --CXR:No acute process. --CT ABD:Mildly displaced left superior and inferior pubic rami fractures with a small amount of adjacent hemorrhage. --Neck CT:No fractures within the cervical spine. -Fall precautions, PT OT Appreciate Orthopedics Input Needs follow-up with Dr. Silvestre in approximately 6-8 weeks for repeat x-rays to evaluate healing of the fractures. Plan to discharge to Acute rehab today Hypertensive urgency H/O HTN Pain could be contributing as well Continue amlodipine, metoprolol Metoprolol dose increased to 50mg daily Resume HCTZ Clonidine as needed Monitor Hypomagnesemia Replete electrolytes as needed Mild troponin elevation likely secondary to CKD, hypertensive urgency Denies any chest pain, dyspnea Trend cardiac enzymes Mild elevation of CK Likely secondary to trauma Hold statin Monitor CK Received IV fluids Suspected UTI at [facility] Urine analysis Normal Asymptomatic No indication for antibiotics COPD Noncompliant with recommendations Currently not on medications Currently not using home oxygen as previously recommended Collagenous colitis Continue sulfasalazine, colestipol GERD Continue Protonix CKD stage IV Baseline creatinine ~ 1.6 Monitor renal function Avoid nephrotoxic agents as able Coronary artery disease S/P stent Renal artery stenosis As per records Currently not on Aspirin Statin on hold due to elevated CK DVT Px SCDs for now Re: Pelvic hemorrhage CODE STATUS DNI/DNR as per my discussion with patient and family Disposition Acute rehab Admission and Anticipated Discharge Date Admission Date: July 25, 2022 Subjective Patient is seen and examined at bedside States feeling well left hip pain is controlled Denies any chest pain, dyspnea, dizziness, nausea, abdominal pain Plan to discharge to Rehab today Review of Systems Review of Systems: All systems reviewed & are unremarkable except as noted in Subjective Physical Exam Physical Exam: Physical Exam: Vitals signs as noted above General Appearance: Thin, frail, elderly, no apparent distress Head: normocephalic, Atraumatic Eyes: normal inspection, EOMI Neck: supple, Trachea midline Respiratory/Chest: Decreased breath sounds, CTA, No accessory muscle use Cardiovascular: S1, S2, No murmur, tachycardia Abdomen/GI:Soft, Non tender, Bowel sounds present Extremities/Musculoskeletal:normal inspection, no edema Neurologic/Psych:AAOX2, grossly no focal neurological deficits, + hip tenderness, ROM Skin: normal color, warm, + multiple bruises, ecchymosis on extremities Results & Data Results & Data ([facility]) Vital Signs (Past 12 Hours) Vital Signs Temp Pulse Pulse Resp BP BP Pulse Ox 07/28/22 11:13 36.5 C 98 H 18 165/87 H 90 07/28/22 10:57 07/28/22 07:54 36.4 C L 88 18 176/82 H 92 07/28/22 07:00 87 07/28/22 04:00 36.7 C 76 18 163/81 H 92 O2 Del Method 07/28/22 11:13 Room Air 07/28/22 10:57 Room Air 07/28/22 07:54 Room Air 07/28/22 07:00 07/28/22 04:00 Room Air Laboratory Results Short CBC 07/28/22 Range/Units 06:27 Hgb 13.2 (12.0-16.0) g/dl Hct 40.0 (37.0-47.0) % (1) Fall Encounter type: subsequent encounter Qualified Code(s): W19.XXXD - Unspecified fall, subsequent encounter (2) Fracture of multiple pubic rami Encounter type: subsequent encounter Fracture healing: with routine healing Fracture type: closed Laterality: left Qualified Code(s): S32.592D - Other specified fracture of left pubis, subsequent encounter for fracture with routine healing
[2022-07-28] MEDS ORDERED: hydroCHLOROthiazide 25 MG TAB PO SCH (12:00)
--- NOTE | 2022-07-28 12:07 | Discharge Summary ---
Date of Service July 28, 2022 Admission HPI Per Admitting Provider Patient is an 87-year-old female with history of coronary artery disease, COPD, CKD, renal artery stenosis, hypertension, GERD, dyslipidemia, collagenous colitis, chronic oxygen dependency (currently not using) and other medical problems presents with history of fall and ambulatory dysfunction. Patient is a poor historian. Most of the history is obtained from patient's daughter at bedside. As per the patient's daughter, patient had an unwitnessed fall yesterday. Patient is unsure about the events prior to the fall. She denies any dizziness, head trauma, loss of consciousness. Since the fall patient has been having difficulty with ambulation associated with hip pain. Patient was also thought to have a transient slurred speech associated with facial droop although daughter believes it could be unreliable history. Patient was evaluated at [facility] yesterday and was thought to have urinary tract infection and was discharged home. Patient was to start on Keflex which patient has not taken yet. Patient had slid to the ground this morning but denies any significant trauma. Denies any history of chest pain, dyspnea, dizziness, pedal edema, cough, hemoptysis, fever, chills, headache, weakness, numbness, change in vision, double/blurry vision, vertigo, bowel/bladder incontinence, nausea, vomiting, abdominal pain, blood in stools, diarrhea, dysuria, hematuria, recent change in medications. Patient admits to not taking her home medications this morning. She also reports has not been evaluated by her PCP for about 2 years. Patient stopped taking medications for COPD and has not been currently using oxygen as previously recommended. Admission Exam Per Admitting Provider Physical Exam Physical Exam: Physical Exam: Vitals signs as noted above General Appearance: Thin, frail, elderly, no apparent distress Head: normocephalic, Atraumatic Eyes: normal inspection, EOMI Neck: supple, Trachea midline Respiratory/Chest: Decreased breath sounds, CTA, No accessory muscle use Cardiovascular: S1, S2, No murmur, tachycardia Abdomen/GI:Soft, Non tender, Bowel sounds present Extremities/Musculoskeletal:normal inspection, no edema Neurologic/Psych:AAOX2, grossly no focal neurological deficits, + hip tenderness, ROM Skin: normal color, warm, + multiple bruises, ecchymosis on extremities Principal Diagnosis Unwitnessed fall Pelvic fracture with adjacent hemorrhage Possible Age-related osteoporosis with current pathological fracture, L inferior and superior pubic ramus Ambulatory dysfunction Discharge Data Allergies Allergy/AdvReac Type Severity Reaction Status Date / Time No Known Allergies Allergy Verified 01/27/21 11:31 Consultations 07/25/22 12:01 ED Decision to Admit Stat 07/25/22 14:36 Consult Orthopedic Surgery Routine Procedures Performed Laboratory Results WBC 5.82 K/ul (4.8-10.8) 07/26/22 05:50 RBC 4.63 M/uL (4.20-5.40) 07/26/22 05:50 Hgb 13.2 g/dl (12.0-16.0) 07/28/22 06:27 Hct 40.0 % (37.0-47.0) 07/28/22 06:27 MCV 90.7 fL (80.0-100.0) 07/26/22 05:50 MCH 29.4 pg (25.0-34.0) 07/26/22 05:50 MCHC 32.4 g/dL (32.0-36.0) 07/26/22 05:50 RDW Std Deviation 44.7 fL (36.4-46.3) 07/26/22 05:50 RDW Coeff of Saulo 13.5 % (11.5-14.5) 07/26/22 05:50 Plt Count 184 K/uL (130-400) 07/26/22 05:50 MPV 10.6 fL (9.4-12.4) 07/26/22 05:50 Immature Gran % (Auto) 0.4 % 07/25/22 10:10 Neut % (Auto) 76.8 % 07/25/22 10:10 Lymph % (Auto) 11.6 % 07/25/22 10:10 [place] % (Auto) 10.8 % 07/25/22 10:10 Eos % (Auto) 0.0 % 07/25/22 10:10 Baso % (Auto) 0.4 % 07/25/22 10:10 Neut # (Auto) 6.21 K/uL (1.40-6.50) 07/25/22 10:10 Lymph # (Auto) 0.94 K/uL (1.2-3.4) L 07/25/22 10:10 [place] # (Auto) 0.87 K/uL (0.11-0.59) H 07/25/22 10:10 Eos # (Auto) 0.00 K/uL (0-0.50) 07/25/22 10:10 Baso # (Auto) 0.03 K/uL (0-0.2) 07/25/22 10:10 Immature Gran # (Auto) 0.03 K/uL (0.01-0.20) 07/25/22 10:10 PT 11.1 Seconds (9.0-12.0) 07/25/22 10:10 INR 1.0 (0.9-1.1) 07/25/22 10:10 Sodium 139 mmol/L (136-145) 07/27/22 07:10 Potassium 3.8 mmol/L (3.5-5.1) 07/27/22 07:10 Chloride 104 mmol/L (98-107) 07/27/22 07:10 Carbon Dioxide 25 mmol/L (21-32) 07/27/22 07:10 Anion Gap 10 (3-11) 07/27/22 07:10 BUN 24 mg/dl (6-23) H 07/27/22 07:10 Creatinine 1.20 mg/dl (0.6-1.2) 07/27/22 07:10 Est Cr Clr Drug Dosing 24.7 ml/min 07/27/22 07:10 Est GFR ( Amer) 47.1 ml/min 07/27/22 07:10 Est GFR (Non-Af Amer) 40.6 ml/min 07/27/22 07:10 BUN/Creatinine Ratio 20.0 (10-20) 07/27/22 07:10 Glucose 70 mg/dl (70-99(Fasting)) 07/27/22 07:10 Calcium 9.0 mg/dl (8.5-10.1) 07/27/22 07:10 Magnesium 1.7 mg/dl (1.7-2.4) 07/27/22 07:10 Total Bilirubin 0.8 mg/dl (0.2-1.0) 07/25/22 10:10 AST 24 U/L (13-39) 07/25/22 10:10 ALT 14 U/L (7-52) 07/25/22 10:10 Alkaline Phosphatase 72 U/L (34-104) 07/25/22 10:10 Total Creatine Kinase 228 U/L (26-192) H 07/26/22 05:50 Troponin I High Sens 21.3 pg/ml (0-14) H 07/26/22 00:41 Total Protein 7.5 gm/dl (6.0-8.3) 07/25/22 10:10 Albumin 3.9 gm/dl (3.4-5.0) 07/25/22 10:10 Globulin 3.6 gm/dl (2.5-4.0) 07/25/22 10:10 Albumin/Globulin Ratio 1.1 (0.9-2) 07/25/22 10:10 TSH 4.645 uIu/ml (0.300-4.500) H 07/25/22 10:10 Free T4 1.21 ng/dl (0.61-1.60) 07/25/22 10:10 Urine Color Yellow 07/25/22 16:05 Urine Appearance Clear (Clear) 07/25/22 16:05 Urine pH 6.0 (4.5-7.5) 07/25/22 16:05 Ur Specific [place] 1.016 (1.000-1.030) 07/25/22 16:05 Urine Protein 2+ (Negative) H 07/25/22 16:05 Urine Glucose (UA) Negative (Negative) 07/25/22 16:05 Urine Ketones Trace (Negative) H 07/25/22 16:05 Urine Blood Trace (Negative) H 07/25/22 16:05 Urine Nitrite Negative (Negative) 07/25/22 16:05 Urine Bilirubin Negative (Negative) 07/25/22 16:05 Urine Urobilinogen Negative (Negative) 07/25/22 16:05 Ur Leukocyte Esterase Negative (Negative) 07/25/22 16:05 Urine WBC (Auto) 1-5 /hpf (0-5) 07/25/22 16:05 Urine RBC (Auto) 0-4 /hpf (0-4) 07/25/22 16:05 U Hyaline Cast (Auto) 1-5 /lpf (0-5) 07/25/22 16:05 U Epithel Cells (Auto) 0-5 /lpf (0-5) 07/25/22 16:05 Urine Bacteria (Auto) Negative (Negative) 07/25/22 16:05 SARS-CoV-2, RNA, NAAT NEGATIVE (NEGATIVE) 07/25/22 10:10 Impressions Abdomen/Pelvis CT 07/25/22 09:[address] WITHOUT CONTRAST CT DOSE: HISTORY: fall TECHNIQUE: Multiaxial CT images of the abdomen and pelvis were performed without contrast. A dose lowering technique was utilized adhering to the principles of ALARA. COMPARISON STUDY: Abdomen and pelvis CT 11/20/2015. FINDINGS: The lung bases are clear. No pneumoperitoneum. No pneumatosis. Mildly displaced left superior and inferior pubic rami fractures. Small pericardial effusion. Small amount of hemorrhage within the left anterolateral extraperitoneal space likely secondary to the left pubic ring fractures. No significant mass effect along the bladder. The bladder, uterus, and adnexa are unremarkable. No pelvic free fluid. 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 There is an ectatic abdominal aorta measuring up to 2.1 cm. A few small gallstones. No gallbladder wall thickening. The unenhanced liver, spleen, and pancreas are unremarkable. Bilateral adrenal gland thickening is likely age-related. There is an atrophic left kidney. Normal right kidney. No hydronephrosis. No retroperitoneal lymphadenopathy. No bowel wall thickening or obstruction. The visualized appendix is unremarkable. IMPRESSION: 1. Mildly displaced left superior and inferior pubic rami fractures with a small amount of adjacent hemorrhage. 2. Additional findings as described above. ACT 112: Negative or not required by law. Electronically signed by: Franco Motta M.D. 07/25/2022 10:[address] 07/25/22 09:[address] DOSE: 1132.33 mGy.cm HISTORY: fall TECHNIQUE: Multiaxial CT images of the cervical spine were performed and reformatted in the sagittal and coronal plane without the use of contrast. A dose lowering technique was utilized adhering to the principles of ALARA. COMPARISON: None. FINDINGS: No fractures. No subluxation. Prevertebral soft tissues and the C1-C2 interval are intact. No pneumothorax. Moderate to severe degenerative changes wi thin the cervical spine. Emphysema. IMPRESSION: No fractures within the cervical spine. ACT 112: Negative or not required by law. Electronically signed by: Franco Motta M.D. 07/25/2022 10:44 AM Chest X-Ray 07/25/22 09:44 XR chest 1V portable HISTORY: fall COMPARISON: Chest 01/27/2021. FINDINGS: No pneumothorax. No pleural effusions. The heart is normal in size. Emphysema. Degenerative changes within the shoulders. The lungs are clear. IMPRESSION: No acute process. ACT 112: Negative or not required by law. Electronically signed by: Franco Motta M.D. 07/25/2022 10:51 AM Femur X-Ray 07/25/22 09:44 XR femur RT 2V routine CLINICAL HISTORY: fall, Pain COMPARISON: CT of the abdomen and pelvis November 20, 2015. FINDINGS: There is no acute fracture within the right femur. Severe right hip osteoarthritis is noted with chondrocalcinosis within the menisci and severe patellofemoral compartment joint space narrowing. There is severe right hip osteoarthritis. IMPRESSION: 1. No acute fracture within the right femur. 2. Severe right knee and hip osteoarthritis. ACT 112: Negative or not required by law. Electronically signed by: Conrado Mckeon M.D. 07/25/2022 10:[address] 07/25/22 09:44 CT OF THE HEAD WITHOUT CONTRAST CLINICAL HISTORY: Fall. COMPARISON STUDY: No previous studies for comparison. TECHNIQUE: Helical axial images of the head were obtained without IV contrast. Automated exposure control was utilized for the study. A dose lowering technique was utilized adhering to the principles of ALARA. FINDINGS: No acute intracranial hemorrhage, midline shift or mass effect is present. White matter hypodensity suggests small vessel disease. The ventricular system is unremarkable. The basal cisterns are patent. No extra-axial collections are present. There are no findings to suggest acute dural sinus thrombosis or acute territorial infarct. There is no acute calvarial fracture. There is mild sinus mucosal thickening. IMPRESSION: 1. No acute intracranial findings. 2. No acute calvarial fracture. ACT 112: Negative or not required by law. Electronically signed by: Conrado Mckeon M.D. 07/25/2022 10:37 AM Ordered Studies 07/25/22 09:44 CT abd pelvis wo con Stat CT cervical spine wo con Stat CT head/brain wo con Stat Hospital Course (1) Fall: (2) Fracture of multiple pubic rami: Unwitnessed fall Pelvic fracture with adjacent hemorrhage Possible Age-related osteoporosis with current pathological fracture, L inferior and superior pubic ramus Ambulatory dysfunction secondary to above --CT head:No acute intracranial findings.. No acute calvarial fracture. --Left Femur:Acute mildly displaced fractures of the left superior and inferior pubic rami. No acute fracture within the left femur. --Right Femur:No acute fracture within the right femur. Severe right knee and hip osteoarthritis. --CXR:No acute process. --CT ABD:Mildly displaced left superior and inferior pubic rami fractures with a small amount of adjacent hemorrhage. --Neck CT:No fractures within the cervical spine. -Fall precautions, PT OT Appreciate Orthopedics Input Needs follow-up with Dr. Silvestre in approximately 6-8 weeks for repeat x-rays to evaluate healing of the fractures. Plan to discharge to Acute rehab today Hypertensive urgency H/O HTN Pain could be contributing as well Continue amlodipine, metoprolol Metoprolol dose increased to 50mg daily Resume HCTZ Clonidine as needed Monitor Hypomagnesemia Replete electrolytes as needed Mild troponin elevation likely secondary to CKD, hypertensive urgency Denies any chest pain, dyspnea Trend cardiac enzymes Mild elevation of CK Likely secondary to trauma Hold statin Monitor CK Received IV fluids Suspected UTI at [facility] Urine analysis Normal Asymptomatic No indication for antibiotics COPD Noncompliant with recommendations Currently not on medications Currently not using home oxygen as previously recommended Collagenous colitis Continue sulfasalazine, colestipol GERD Continue Protonix CKD stage IV Baseline creatinine ~ 1.6 Monitor renal function Avoid nephrotoxic agents as able Coronary artery disease S/P stent Renal artery stenosis As per records Currently not on Aspirin Statin on hold due to elevated CK DVT Px SCDs for now Re: Pelvic hemorrhage CODE STATUS DNI/DNR as per my discussion with patient and family Disposition Acute rehab Total Time Total Time Spent Total Time Spent (In Minutes): 56 minutes Discharge Plan Discharge Items Patient Disposition: Transfer Inpatient Rehab Fac Reason For Visit: FALL Discharge Diagnosis: Unwitnessed fall Pelvic fracture with adjacent hemorrhage Possible Age-related osteoporosis with current pathological fracture, L inferior and superior pubic ramus Ambulatory dysfunction Activity: Per Instructions section Activity Comment: weight-bear as tolerated on the left lower extremity Exercise/Sports: Gradually increase as tolerated Non-emergency contact: Primary Care Provider and Surgeon Call non-emergency contact if: you have any medication questions, your symptoms worsen, your pain is concerning for you and you have a fever Follow-up/Referrals: Katelyn Orellana, [Primary Care Provider] - Diet: Regular Diet Texture: Easy to Chew Lindsey Attending Provider Instructions: Follow-up with your primary care physician in 1 week upon discharge from rehab facility Follow-up with your orthopedic surgeon Dr. Silvestre in 6-8 weeks Lindsey [employer] Director Provider Instructions: Weight-bear as tolerated on the left lower extremity If increased pain, recommend use of a walker/at least 1 assist Increase weightbearing as tolerated Follow-up with Dr. Silvestre in approximately 6-8 weeks for repeat x-rays to evaluate healing of the fractures. Pending Studies at Discharge: No Stand-Alone Forms: My [facility] Skilled Items Patient informed of condition?: Yes DNR: Yes Discharge Level of Care: Acute rehab Communicable Disease: No Discharge Prognosis: Stable Lines: None Urinary Catheter: No Medications and DC Order Prescriptions: New oxycodone-acetaminophen [Percocet] 5-325 mg Tablet 1 tab PO Q8H PRNQty: 0 0RF Continued atorvastatin 40 mg tablet 40 mg PO DAILY sulfasalazine 500 mg tablet 500 mg PO BID omeprazole 20 mg capsule,delayed release(DR/EC) 20 mg PO DAILY Rx Instructions: TAKE THIS MEDICATION ONCE DAILY 30 TO 60 MINUTES BEFORE FIRST MEAL OF THE DAY colestipol 1 gram tablet 2 g PO BID amlodipine 10 mg tablet 5 mg PO DAILY hydrochlorothiazide 12.5 mg capsule 12.5 mg PO DAILY Changed metoprolol succinate 25 mg tablet extended release 24 hr 50 mg PO DAILY Qty: 1 0RF Discharge Orders: Discharge Order (Routine); Ordered 07/28/22 Ordered By: Mike Salas Admission Data Admit Date/Time: 07/25/22 12:20 Attending Provider: Mike Salas Admit Provider: Mike Salas Primary Care Provider: Katelyn Orellana Other Providers: Mike Salas ; Nick Middleton ; Justin To ; Faina Thomason Thomas J ; Saba Camarillo ; Stan Rollins ; Oscar Kovacs ; Rm StoreyJourdan J. ; Oscar Espinoza. ; Jeronimo Newsome ; Migeul Meier ; Danielito Cho ; Fredy Wood. ; Saba Valadez ; Blayne Branham ; Sony Ramos ; Shannon Jung ; Zana Mcclain ; Jose Emerson ; Radha Harris ; Ian Silvestre ; Nicole Scott. ; [facility]
[2022-07-28] MEDS: oxyCODONE/ACETAMINOPHEN 5mg/325mg TAB PO PRN (13:33)
== END 2022-07-28 15:32 | DRG 543 ==
LOC: ED 09:03 → 2N 12:20

== ENCOUNTER 2022-11-20 12:19 | Inpatient (IN) ==
[2022-11-20] MEDS ORDERED: MoRPHine SULFATE 4 MG/ML 1 ML CARP\\VIAL IV PRN (12:25)
[2022-11-20] MEDS ORDERED: SODIUM CHLORIDE 0.9% 1000ML 1,000 ML IV SCH (12:30)
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
[2022-11-20] MEDS ORDERED: ONDANSETRON INJ 2 MG/ML 2 ML VIAL IV STA (13:13)
[2022-11-20 13:37] LABS: Basophils # (auto) 0.05 K/uL (0-0.2); Basophils % (auto) 0.6 %; Hematocrit (blood only) 47.2 % (37.0-47.0); Hemoglobin 15.4 g/dl (12.0-16.0); Immature Granulocytes # (auto) 0.05 K/uL (0.01-0.20); Immature Granulocytes % (auto) 0.6 %; Lymphocytes # (auto) 1.73 K/uL (1.2-3.4); Lymphocytes % (auto) 19.2 %; Mean Corpuscular Hemoglobin 28.8 pg (25.0-34.0); Mean Corpuscular Hgb Conc 32.6 g/dL (32.0-36.0); Mean Corpuscular Volume 88.4 fL (80.0-100.0); Mean Platelet Volume 10.7 fL (9.4-12.4); Monocytes # (auto) 0.57 K/uL (0.11-0.59); Monocytes % (auto) 6.3 %; Neutrophils # (auto) 6.62 K/uL (1.40-6.50); Neutrophils % (auto) 73.3 %; Platelet Count 264 K/uL (130-400); RDW Coefficient of Variation 13.2 % (11.5-14.5); RDW Standard Deviation 42.5 fL (36.4-46.3); Red Blood Count 5.34 M/uL (4.20-5.40); White Blood Count 9.02 K/ul (4.8-10.8)
[2022-11-20 13:47] LABS: Albumin Globulin Ratio 1.1 (0.9-2); Albumin Level 4.1 gm/dl (3.4-5.0); BUN Creatinine Ratio 19.5 (10-20); Bilirubin,Total 0.5 mg/dl (0.2-1.0); Calcium 9.7 mg/dl (8.6-10.3); Creatinine Clr Calc Pharmacy 21.8 ml/min; Est GFR (African American) 41.6 ml/min; Est GFR (Non-African American) 35.9 ml/min; Globulin 3.7 gm/dl (2.5-4.0); Potassium 3.8 mmol/L (3.5-5.1); Total Protein 7.8 gm/dl (6.0-8.3)
[2022-11-20 14:04] LABS: Partial Thromboplastin Ratio 0.9; Partial Thromboplastin Time 26.2 Seconds (21.0-31.0); Prothrombin Time 11.2 Seconds (9.0-12.0)
[2022-11-20] MEDS ORDERED: LABETALOL HCL IV 5 MG/ML 20ML IV STA (14:07)
--- NOTE | 2022-11-20 14:22 | XRay Report ---
SINGLE VIEW PELVIS; 2 VIEWS RIGHT HIP CLINICAL HISTORY: Fall. Right leg injury. FINDINGS: An AP view of the pelvis with AP and crosstable lateral views of the right hip are correlat ed with radiograph of the right femur and pelvic CT dated 07/25/2022. The skeletal structures are oste openic. There is a comminuted intertrochanteric fracture of the right proximal femur with mild angula tion and overlying soft tissue edema. There are chronic left pubic ring fractures, which were acute o n the 07/25/2022 CT scan. No acute fracture is seen involving the left hip or the bony pelvis. Moderat e arthritic change and joint space narrowing is seen in the hips. Degenerative sclerosis is noted in the sacroiliac joints and pubic symphysis. There is advanced atherosclerotic calcification of the fem oral arteries. IMPRESSION: Intertrochanteric fracture of the right femur as above. Electronically signed by: Sree Shin M.D. 11/20/2022 2:21 PM
--- NOTE | 2022-11-20 14:28 | XRay Report ---
XR chest 1V portable CLINICAL HISTORY: fall TECHNIQUE: Single frontal radiograph of the chest was obtained. Comparison: Comparison is made to chest radiograph 07/25/2022 FINDINGS: No lines and tubes are seen. Cardiomegaly is noted. The lungs are clear. No evidence of pleural effus ion or pneumothorax. IMPRESSION: No acute chest disease. ACT 112: Negative or not required by law. Electronically signed by: Zane Hansen M.D. 11/20/2022 2:26 PM
[2022-11-20 15:07] LABS: Appearance Urine Clear (Clear); Bacteria Urine Automated Negative (Negative); Bilirubin Urine Negative (Negative); Blood Urine Trace (Negative); Color Urine Yellow; Glucose Urine UA Negative (Negative); Ketones Urine Negative (Negative); Leukocyte Esterase Urine Negative (Negative); Nitrite Urine Negative (Negative); Protein Urine 3+ (Negative); RBC Urine Automated 0-4 /hpf (0-4); Specific Gravity Urine 1.014 (1.000-1.030); Urobilinogen Urine Negative (Negative); pH Urine 6.5 (4.5-7.5)
[2022-11-20] MEDS ORDERED: amLODIPine BESYLATE 5 MG TAB PO ONE (15:22)
--- NOTE | 2022-11-20 15:40 | History & Physical Report ---
Date of Service November 20, 2022 Assessment & Plan (1) Fracture, intertrochanteric, right femur: (2) Fall: Plan This is an 87-year-old female who has significant past medical history of CAD with history of stent, HTN, HLD, history of renal artery stenosis, subclavian stenosis, GERD, CKD stage IIIb, senile osteoporosis who presents to ED after fall. Fall Possible age-related osteoporosis with current pathological fracture of intertrochanteric right femur Admit to med telemetry due to hypertension Consult orthopedics N.p.o. after midnight Chest x-ray and EKG reviewed Due to underlying cognitive deficits unable to assess METS Pt ambulatory at baseline and would benefit from urgent surgical repair Once blood pressure under better control she will be medical stable to undergo repair consult orthopedics Schedule Tylenol, Oxy IR for moderate pain and IV morphine for severe pain Bedrest Lira catheter place Preop antibiotics ordered obtain vit d level CAD with hx of cardiac stent HTN Urgency reported renal artery stenosis, R subclavian stenosis unknown pt compliance with medications per med rec on metoprolol, hctz and amlodipine unknown if taken today will give amlodipine 5mg x 1 now continue home BP meds prn hydralazine Cognitive deficits ? underlying dementia but no formal diagnosis pt on mirtazapine at bedtime will consult psych for decision making capacity Daughter Aye at bedside who reports she is POA feels pt unsafe at home given current situation, during last hospital stay and at rehab wishes to explore long term care pharmacist placement however was unable to obtain this will determine pts decision making capacity encouraged daughter to bring in paper work for POA status COPD former smoker not on inhalers, per family suppose to be on oxygen but pt/caregiver never obtained CKD-3b cr baseline 1.2 bun/cr 1.33 will give gentle IVF while NPO Collagenous Colitis continue sulfasalazine DVT ppx: SCDS for now, will need chemical prophylaxis depending on surgical timeline DNR/DNI PCP: Esteban Dispo: pt with difficult family dynamics, daughter at bedside states she is POA, encouraged to bring paperwork stating such; however daughter pt lives with it reported unsafe, freq falls, not taking medications, pt not cared for. There is also documentation in EPIC from previous PCP note from August that she contacted [facility] due to welfare of the pt and concern regarding compliance with medical treatments. Daughter at bedside wishes to have patient placement post hospitalization for safety of patient; however when at [facility] this was never done because patient refused to do so. I do feel pt has underlying cognitive deficits and feel her decision making capacity is not competent. I will have psychiatry weigh in on her capacity. Will need CM involvement with this difficult family situation. Pt was seen and examined in collaboration with Dr. Dye, please see addendum A total of 75 was spent coordinating, documenting, and providing care for this patient excluding time spent in the performance of separately billed services. This included personally viewing all current laboratories and imaging studies, medication reconciliation, outpatient chart review, and discussion with specialists. 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 Primary Care Provider: Katelyn Orellana, This is an 87-year-old female who has significant past medical history of CAD with history of stent, HTN, HLD, history of renal artery stenosis, subclavian stenosis, GERD, CKD stage IIIb, senile osteoporosis who presents to ED after fall. Daughter and granddaughter are at bedside. Patient has a 8 children. The daughter that she lives with is not at bedside. That daughter's name is Carmen. According to the daughter and granddaughter at bedside there is concerns about patient's living arrangements as she is not taking her medications and there is also concern about her safety. Per ED provider and family member at bedside the report is that she was walking down the stairs whenever she lost balance and fell on her right side. It is reported that she did not hit her head and that it is a witnessed fall. ROS unobtainable from patient as she does have underlying dementia. Patient was hospitalized in August due to a fall again and had a inferior and superior left pubic ramus fracture that required a short rehab stay. She was then discharged to home and she did have a hospital follow-up with her PCP. According to those notes there is also concern about patient's welfare as PCP made contact with [facility]. In ED patient was hemodynamically stable though she was significantly hypertensive with blood pressure 202/110. She did receive IV morphine as well as IV labetalol for attempted management. It is unsure if this is related to pain and/or medical noncompliance it is uncertain what she is taking. Patient also was to be on oxygen at home but does not utilize this and never obtained it. Allergies Allergy/AdvReac Type Severity Reaction Status Date / Time aspirin AdvReac Unknown Verified 11/20/22 14:40 Home Medications Medication Instructions Recorded Confirmed Type colestipol 1 gram tablet 2 g PO BID 11/10/19 11/20/22 History omeprazole 20 mg capsule,delayed 20 mg PO DAILY 11/10/19 11/20/22 History release sulfasalazine 500 mg tablet 500 mg PO BID 11/10/19 11/20/22 History hydrochlorothiazide 12.5 mg capsule 12.5 mg PO DAILY 01/27/21 11/20/22 History amlodipine 2.5 mg tablet 2.5 mg PO DAILY 11/20/22 11/20/22 History metoprolol succinate 25 mg 75 mg PO DAILY 11/20/22 11/20/22 History tablet,extended release 24 hr mirtazapine 15 mg tablet 7.5 mg PO HS 11/20/22 11/20/22 History Past Med/Surg History Medical History CAD (coronary artery disease) CKD (chronic kidney disease), stage IV Colitis COPD (chronic obstructive pulmonary disease) COPD exacerbation Cough Elevated troponin Hyperlipidemia Hypoxia PVD (peripheral vascular disease) Retroperitoneal hematoma Right flank pain Surgical History Stented coronary artery Family History Mother Cancer Social History (Updated 11/20/22 @ 15:38 by Kassidy Parsons PA-C) Smoking Status: Former smoker Tobacco Type: Cigarettes Second Hand Exposure: No; Do You Dip or Chew Tobacco: No; Hx Alcohol Use: No Hx Substance Use: No Preferred Language: Anguillan Communication Ability: Effective Corporate Fitness Program Coordinator Required: No Beliefs That Will Affect Care: None marital status: / Current Living Situation: Family Current Living Situation Comment: lives with daughter Feels Safe at Home: Yes Assistive Devices: Cane Review of Systems Review of Systems: Unobtainable due to cognitive status Physical Exam Physical Exam: Please refer to Dr. Dye addendum for physical exam findings. Results & Data Results & Data Vital Signs (Past 12 Hours) Vital Signs Temp Pulse Pulse Resp BP BP Pulse Ox 11/20/22 15:20 74 19 202/110 H 95 11/20/22 14:30 70 18 183/101 H 100 11/20/22 14:16 66 17 160/82 H 94 11/20/22 14:09 72 18 207/103 H 93 11/20/22 13:30 70 16 211/105 H 97 11/20/22 13:00 73 17 207/106 H 89 L 11/20/22 12:19 36 C L 88 18 224/115 H 93 11/20/22 12:54 75 O2 Del Method O2 Flow Rate 11/20/22 15:20 11/20/22 14:30 11/20/22 14:16 11/20/22 14:09 Nasal Cannula 2 11/20/22 13:30 11/20/22 13:00 11/20/22 12:19 Room Air 11/20/22 12:54 Diagnostic Findings Chest X-Ray 11/20/22 12:25 XR chest 1V portable CLINICAL HISTORY: fall TECHNIQUE: Single frontal radiograph of the chest was obtained. Comparison: Comparison is made to chest radiograph 07/25/2022 FINDINGS: No lines and tubes are seen. Cardiomegaly is noted. The lungs are clear. No evidence of pleural effusion or pneumothorax. IMPRESSION: No acute chest disease. ACT 112: Negative or not required by law. Electronically signed by: Zane Hansen M.D. 11/20/2022 2:26 PM Hip/Pelvis X-Ray 11/20/22 12:25 SINGLE VIEW PELVIS; 2 VIEWS RIGHT HIP CLINICAL HISTORY: Fall. Right leg injury. FINDINGS: An AP view of the pelvis with AP and crosstable lateral views of the right hip are correlated with radiograph of the right femur and pelvic CT dated 07/25/2022. The skeletal structures are osteopenic. There is a comminuted intertrochanteric fracture of the right proximal femur with mild angulation and overlying soft tissue edema. There are chronic left pubic ring fractures, which were acute on the 07/25/2022 CT scan. No acute fracture is seen involving the left hip or the bony pelvis. Moderate arthritic change and joint space narrowing is seen in the hips. Degenerative sclerosis is noted in the sacroiliac joints and pubic symphysis. There is advanced atherosclerotic calcification of the femoral arteries. IMPRESSION: Intertrochanteric fracture of the right femur as above. Electronically signed by: Sree Shin M.D. 11/20/2022 2:21 PM Medications Administered Medication List Sodium Chloride (Nss 1000ml) 1,000 mls @ 150 mls/hr IV .[id number] ALEJANDRO Stop: 11/20/22 19:09 Last Admin: 11/20/22 13:29 Dose: 150 mls/hr Documented By: CRISTOPHER Morphine Sulfate (Morphine Sulfate 4 Mg/Ml 1 Ml Carp\\Vial) 4 mg IV Q1H PRN PRN Reason: Severe Pain (Rating 7,8,9,10) Stop: 12/04/22 12:24 Last Admin: 11/20/22 14:08 Dose: 4 mg Documented By: JEAN Discontinued Medications Labetalol HCl (Labetalol Hcl Iv 5 Mg/Ml 20ml) 5 mg IV NOW STA Stop: 11/20/22 14:08 Last Admin: 11/20/22 14:12 Dose: 5 mg Documented By: JEAN Co-signed By: ALINE Ondansetron HCl (Ondansetron Inj 2 Mg/Ml 2 Ml Vial) 4 mg IV NOW STA Stop: 11/20/22 13:14 Last Admin: 11/20/22 13:29 Dose: 4 mg Documented By: CRISTOPHER ECG Rate (beats per minute): 77 Rhythm: normal sinus COVID-19 Results Results COVID-19 Adm Lab Results: RBC 5.34 M/uL (4.20-5.40) 11/20/22 WBC 9.02 K/ul (4.8-10.8) 11/20/22 Hgb 15.4 g/dl (12.0-16.0) 11/20/22 Hct 47.2 % (37.0-47.0) H 11/20/22 Plt Count 264 K/uL (130-400) 11/20/22 Neutrophils (%) (Auto) 73.3 % 11/20/22 Lymphocytes (%) (Auto) 19.2 % 11/20/22 Monocytes # (Auto) 0.57 K/uL (0.11-0.59) 11/20/22 Eosinophils # (Auto) 0.00 K/uL (0-0.50) 11/20/22 Immature Granulocyte % (Auto) 0.6 % 11/20/22 Neutrophils # (Auto) 6.62 K/uL (1.40-6.50) H 11/20/22 Lymphocytes # (Auto) 1.73 K/uL (1.2-3.4) 11/20/22 Monocytes # (Auto) 0.57 K/uL (0.11-0.59) 11/20/22 Eosinophils # (Auto) 0.00 K/uL (0-0.50) 11/20/22 Basophils # (Auto) 0.05 K/uL (0-0.2) 11/20/22 Immature Granulocyte # (Auto) 0.05 K/uL (0.01-0.20) 3 Na 136 mmol/L (136-145) 11/20/22 K 3.8 mmol/L (3.5-5.1) 11/20/22 Cl 100 mmol/L (98-107) 11/20/22 CO2 25 mmol/L (21-32) 11/20/22 Anion Gap 11 (3-11) 11/20/22 BUN 26 mg/dl (6-23) H 11/20/22 Creatinine 1.33 mg/dl (0.6-1.2) H 11/20/22 BUN/Creatinine Ratio 19.5 (10-20) 11/20/22 Glucose Level 141 mg/dl (70-99(Fasting)) H 11/20/22 Ca 9.7 mg/dl (8.6-10.3) 11/20/22 Total Bilirubin 0.5 mg/dl (0.2-1.0) 11/20/22 AST/SGOT 24 U/L (13-39) 11/20/22 ALT/SGPT 15 U/L (7-52) 11/20/22 Alkaline Phosphatase 89 U/L (34-104) 11/20/22 Total Protein 7.8 gm/dl (6.0-8.3) 11/20/22 Albumin 4.1 gm/dl (3.4-5.0) 11/20/22 Globulin 3.7 gm/dl (2.5-4.0) 11/20/22 Albumin/Globulin Ratio 1.1 (0.9-2) 11/20/22 PTT 26.2 Seconds (21.0-31.0) 11/20/22 INR 1.0 (0.9-1.1) 11/20/22 SARS-CoV-2, RNA, NAAT NEGATIVE (NEGATIVE) 11/20/22 Chest X-Ray 11/20/22 Code Status & VTE Plan Code Status DNR/DNI VTE Prophylaxis Plan VTE Prophylaxis will be ordered: Yes Supervising Physician Co-Signing Physician Notes I have seen and examined the patient with MALKA Parsons at bedside. I have reviewed ED and RN notes, vs, labs, and imaging reports from the prior 24 hours. Pt has no complaints at the time other than feeling "yucky." She denies pain in the hip. Remaining ROS is negative. Per her daughter at bedside the patient never complains, and even if she were in pain would deny it in order to go home. Ms. Nickerson is a pleasant 87-year-old female with pmhx (per chart, pt and daughter at bedside can not confirm) of CAD with history of stent, HTN, HLD, history of renal artery stenosis, subclavian stenosis, GERD, CKD stage IIIb, and senile osteoporosis. She presented d/t a witnessed fall. Unfortunately the witness is not currently available so the history is per chart. Family at bedside suspect undiagnosed dementia as well which based on our interactions seems likely. Here pt was found to have an intertrochanteric fracture of the right femur. We will provide analgesia, bed rest, and consult orthopedic surgery. Daughter at bedside states she is the POA. We have asked her to bring in documentation reflecting this. Daughter at bedside (Lucia) has concerns regarding the patient's safety at home. She believes the patient is not receiving appropriate care including her maintenance medications. She has tried to address these concerns previously. She has not had any success finding another housing option for the patient other than with one of the patient's other daughters. The patient apparently insists on returning to that home even though it may not be safe for her. The patient's PCP has also raised concerns. [facility] ([facility] have been contacted by the PCP. We will ask for a formal psychiatry consult to establish patient's capacity to make decisions and proceed from there. We will also reach out to CM to see what they may be able to assist with in terms of placement. PE: Gen: frail elderly appearing female. NAD. Head: NC AT Eyes: no icterus or conjunctival injection Nose: nares patent Mouth: dry Neck: trachea midline CV: RRR S1 S2 Pulm: CTA b/l anterior GI/abd: +BS, soft, NT, ND, no guarding MSK: muscle wasting Ext: no pretibial edema, peripheral pulses intact. RLE shortened and internally rotated. Neuro: alert, oriented x 2, grossly intact Psych: pleasant mood and affect Skin: visible skin is warm, dry, and without rash. Pt was not fully undressed for exam. Rest per attested note above
[2022-11-20] MEDS ORDERED: NALOXONE HCL 0.4 MG/1 ML VIAL/CARP IV PRN (16:43)
[2022-11-20] MEDS ORDERED: MAGNESIUM HYDROXIDE SUSP 30 ML UDC PO PRN (16:43)
[2022-11-20] MEDS ORDERED: ALUMINUM/MAGNESIUM SUSP 30 ML UDC PO PRN (16:43)
[2022-11-20] MEDS ORDERED: bisacodyL 10 MG SUPP PR PRN (16:43)
[2022-11-20] MEDS ORDERED: oxyCODONE HCL IR 5 MG TAB (IMMEDIATE RELEASE) PO PRN (16:43)
[2022-11-20] MEDS ORDERED: POLYETHYLENE (MIRALAX) 17 GM PACK PO PRN (16:43)
[2022-11-20] MEDS: MoRPHine SULFATE 2 MG/ML CARP IV PRN (17:07)
[2022-11-20] MEDS: hydrALAZINE HCL 20 MG/ML VIAL IV PRN (17:08)
[2022-11-20] MEDS: ACETAMINOPHEN 500 MG TAB PO SCH ×2 (17:43→20:35)
[2022-11-20] MEDS: ONDANSETRON INJ 2 MG/ML 2 ML VIAL IV PRN (18:07)
[2022-11-20] MEDS: sulfaSALAzine 500 MG TABLET PO SCH (20:35)
[2022-11-20] MEDS: COLESTIPOL HCL 1 GM TAB PO SCH (20:35)
[2022-11-20] MEDS: DOCUSATE SODIUM/SENNA 50/8.6MG TAB PO SCH (20:35)
[2022-11-20] MEDS: MIRTAZAPINE TAB 15 MG TAB PO SCH (20:36)
[2022-11-21] MEDS ORDERED: LACTATED RINGER'S 1,000 ML IV SCH
[2022-11-21] MEDS ORDERED: ceFAZolin 2000MG 2,000 MG/15 ML SYR IV SCH (06:00)
[2022-11-21] MEDS ORDERED: BUPIVACAINE 0.5 % 5 MG/1 ML PF 10ML VIAL ONE (06:58)
--- NOTE | 2022-11-21 07:04 | Anesthesiology Consultation ---
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 Height/Weight Height: 5 ft Weight: 45.5 kg Allergies Allergy/AdvReac Type Severity Reaction Status Date / Time aspirin AdvReac Unknown Verified 11/20/22 14:40 Medications Home Medications Medication Instructions Recorded Confirmed Last Taken colestipol 1 gram tablet 2 g PO BID 11/10/19 11/20/22 01/27/21 omeprazole 20 mg capsule,delayed 20 mg PO DAILY 11/10/19 11/20/22 01/27/21 release sulfasalazine 500 mg tablet 500 mg PO BID 11/10/19 11/20/22 01/27/21 hydrochlorothiazide 12.5 mg capsule 12.5 mg PO DAILY 01/27/21 11/20/22 01/27/21 amlodipine 2.5 mg tablet 2.5 mg PO DAILY 11/20/22 11/20/22 Unknown metoprolol succinate 25 mg 75 mg PO DAILY 11/20/22 11/20/22 Unknown tablet,extended release 24 hr mirtazapine 15 mg tablet 7.5 mg PO HS 11/20/22 11/20/22 Unknown Active Medications Generic Name Dose Route Start Last Admin Trade Name Freq PRN Reason Stop Dose Admin Acetaminophen 500 mg 11/20/22 17:00 11/20/22 20:35 Acetaminophen 500 Mg Tab PO 12/20/22 16:59 500 mg QID ALEJANDRO Administration Colestipol HCl 2 gm 11/20/22 22:00 11/20/22 20:35 Colestipol Hcl 1 Gm Tab PO 12/20/22 21:59 2 gm BID@1000,2200 ALEJANDRO Administration Hydralazine HCl 5 mg 11/20/22 16:43 11/20/22 17:08 Hydralazine Hcl 20 Mg/Ml Vial IV 12/20/22 16:42 5 mg Q6H PRN Administration SBP > 180 Lactated Ringer's 1,000 mls @ 80 mls/hr 11/21/22 00:00 11/20/22 23:51 Lr IV 11/21/22 12:29 80 mls/hr .[id number] ALEJANDRO Administration Mirtazapine 7.5 mg 11/20/22 21:00 11/20/22 20:36 Mirtazapine Tab 15 Mg Tab PO 12/20/22 20:59 7.5 mg HS ALEJANDRO Administration Morphine Sulfate 2 mg 11/20/22 16:43 11/20/22 17:07 Morphine Sulfate 2 Mg/Ml Carp IV 12/04/22 16:42 2 mg Q4H PRN Administration Severe pain 7,8, 9, 10 Ondansetron HCl 4 mg 11/20/22 16:43 11/20/22 18:07 Ondansetron Inj 2 Mg/Ml 2 Ml Vial IV 12/20/22 16:42 4 mg Q6H PRN Administration Nausea Senna/Docusate Sodium 2 tab 11/20/22 21:00 11/20/22 20:35 Docusate Sodium/Senna 50/8.6mg Tab PO 12/20/22 20:59 2 tab HS ALEJANDRO Administration Sulfasalazine 500 mg 11/20/22 21:00 11/20/22 20:35 Sulfasalazine 500 Mg Tablet PO 12/20/22 20:59 500 mg BID ALEJANDRO Administration NPO Date Last Intake of Fluids: 11/20/22 Time Last Intake of Fluids: 22:00 Last Intake of Fluids Comment: sips w/ PO meds Date Last Intake of Solids: 11/20/22 Time Last Intake of Solids: 22:00 Last Intake of Solids Comment: a few bites of applesauce w/ po meds Past Medical History Medical History CAD (coronary artery disease) CKD (chronic kidney disease), stage IV Colitis COPD (chronic obstructive pulmonary disease) COPD exacerbation Cough Elevated troponin Hyperlipidemia Hypoxia PVD (peripheral vascular disease) Retroperitoneal hematoma Right flank pain Past Family History Family History Mother Cancer Past Surgical History Surgical History Stented coronary artery Social History Smoking Status: Never smoker Do You Dip or Chew Tobacco: No Hx Alcohol Use: No Hx Substance Use: No Physical Exam Vital Signs Last Vital Signs Temp 98.1 F 11/21/22 03:18 Pulse 91 H 11/21/22 03:18 Resp 16 11/21/22 03:18 BP 145/78 H 11/21/22 03:18 Pulse Ox 96 11/21/22 03:18 O2 Del Method Nasal Cannula 11/21/22 03:18 O2 Flow Rate 2 11/21/22 03:18 Lab Results Anesthesia Preop Results Results Anesthesia Widget: WBC 7.30 K/ul (4.8-10.8) 11/21/22 Hgb 13.3 g/dl (12.0-16.0) 11/21/22 Hct 40.9 % (37.0-47.0) 11/21/22 Plt 224 K/uL (130-400) 11/21/22 Na 136 mmol/L (136-145) 11/20/22 K 3.8 mmol/L (3.5-5.1) 11/20/22 Cl 100 mmol/L (98-107) 11/20/22 CO2 25 mmol/L (21-32) 11/20/22 BUN 26 mg/dl (6-23) H 11/20/22 Creat 1.33 mg/dl (0.6-1.2) H 11/20/22 Glucose Level 141 mg/dl (70-99(Fasting)) H 11/20/22 PT 11.2 Seconds (9.0-12.0) 11/20/22 PTT 26.2 Seconds (21.0-31.0) 11/20/22 INR 1.0 (0.9-1.1) 11/20/22 HA1c Pending 11/21/22 SARS-CoV-2, RNA, NAAT NEGATIVE (NEGATIVE) 11/20/22 Blood Type A Positive 11/20/22 Antibody Screen NEGATIVE 11/20/22 Testing Laboratory Results PT 11.2 Seconds (9.0-12.0) 11/20/22 12:45 INR 1.0 (0.9-1.1) 11/20/22 12:45 APTT 26.2 Seconds (21.0-31.0) 11/20/22 12:45 Urine Color Yellow 11/20/22 13:00 Urine Appearance Clear (Clear) 11/20/22 13:00 Urine pH 6.5 (4.5-7.5) 11/20/22 13:00 Ur Specific [place] 1.014 (1.000-1.030) 11/20/22 13:00 Urine Protein 3+ (Negative) H 11/20/22 13:00 Urine Glucose (UA) Negative (Negative) 11/20/22 13:00 Urine Ketones Negative (Negative) 11/20/22 13:00 Urine Nitrite Negative (Negative) 11/20/22 13:00 Ur Leukocyte Esterase Negative (Negative) 11/20/22 13:00 Urine WBC (Auto) 1-5 /hpf (0-5) 11/20/22 13:00 Urine RBC (Auto) 0-4 /hpf (0-4) 11/20/22 13:00 U Hyaline Cast (Auto) 1-5 /lpf (0-5) 11/20/22 13:00 U Epithel Cells (Auto) 5-10 /lpf (0-5) H 11/20/22 13:00 Urine Bacteria (Auto) Negative (Negative) 11/20/22 13:00 Blood Type A Positive 11/20/22 20:50 Antibody Screen NEGATIVE 11/20/22 20:50 Electrocardiogram Date: 11/20/22 Sinus rhythm with Premature atrial complexes with Aberrant conduction, rate 77 bpm T wave abnormality, consider lateral ischemia Abnormal ECG When compared with ECG of 26-JUL-2022 06:00, Aberrant conduction is now Present T wave inversion no longer evident in Anterior leads Chest X-Ray Date: 11/20/22 Findings: + NAD
[2022-11-21 07:07] LABS: Hematocrit (blood only) 40.9 % (37.0-47.0); Hemoglobin 13.3 g/dl (12.0-16.0); Mean Corpuscular Hemoglobin 28.9 pg (25.0-34.0); Mean Corpuscular Hgb Conc 32.5 g/dL (32.0-36.0); Mean Corpuscular Volume 88.9 fL (80.0-100.0); Mean Platelet Volume 10.3 fL (9.4-12.4); Platelet Count 224 K/uL (130-400); RDW Coefficient of Variation 13.4 % (11.5-14.5); RDW Standard Deviation 43.8 fL (36.4-46.3)
[2022-11-21] MEDS ORDERED: LIDOCAINE 2% 2 ML VIAL/AMP(20MG/ML) INFIL ONE (07:07)
[2022-11-21] MEDS ORDERED: PROPOFOL IV EMULSION 10 MG/ML 20 ML VIAL IV ONE (07:07)
[2022-11-21 07:10] LABS: BUN Creatinine Ratio 21.7 (10-20); Calcium 9.2 mg/dl (8.6-10.3); Creatinine Clr Calc Pharmacy 22.1 ml/min; Est GFR (African American) 43.1 ml/min; Est GFR (Non-African American) 37.2 ml/min; Magnesium 1.5 mg/dl (1.7-2.4); Potassium 4.3 mmol/L (3.5-5.1)
[2022-11-21] MEDS ORDERED: ONDANSETRON INJ 2 MG/ML 2 ML VIAL IV PRN (07:33)
[2022-11-21] MEDS ORDERED: ATROPINE SULFATE 0.1 MG/ML 10ML SYR IV PRN (07:33)
[2022-11-21] MEDS ORDERED: ePHEDrine sulfate 50 MG/ML AMP IV PRN (07:33)
[2022-11-21] MEDS ORDERED: fentaNYL citrate PF 100 MCG/2 ML VIAL IV PRN (07:33)
[2022-11-21] MEDS ORDERED: LIDOCAINE 1% LOCAL 20 ML VIAL ONE (07:54)
[2022-11-21] MEDS ORDERED: BUPIVACAINE 0.5 % 5 MG/1 ML MPF 30ML VIAL ONE (07:54)
[2022-11-21] MEDS ORDERED: ceFAZolin 330 MG/ML 1 GM VIAL ONE (07:54)
[2022-11-21 08:00] LABS: Estimated Average Glucose 100 mg/dl; Hemoglobin A1C 5.1 % (4.5-5.6)
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
[2022-11-21] MEDS ORDERED: KETAMINE 50 MG/5 ML SYRINGE ONE (08:07)
--- NOTE | 2022-11-21 09:08 | Operative Report ---
Post Operative Report Pre & Post Diagnosis Operation Date: 11/21/22 07:30 Pre-Op Diagnosis: Right hip intertrochanteric femur fracture Post-Op Diagnosis: Right hip intertrochanteric femur fracture I identified the patient and participated in the time-out.: Yes Procedure Operation Date: 11/21/22 07:30 Actual Procedures Right hip short cephalomedullary nailing for intertrochanteric femur fracture ([id number]) - Sony Ramos M.D. Surgeon Sony Ramos MD Nutrition Faculty Member Stan Rollins PA-C Estimated Blood Loss 50 Findings Consistent with Post-Op Diagnosis Specimens None Drains None Anesthesia Type General Complications none Disposition Disposition: Recovery Room Indications Ms. Nickerson is an 87-year-old female who injured her right hip during a ground- level fall. History, clinical exam, and imaging were consistent with the above diagnosis. Risks, benefits, and alternatives of surgery were explained in detail. The patient understood all this and wished to proceed. Description of Procedure Implants: Synthes Short (170mm) 130 degree 12mm Trochanteric Fixation Nail, 11mm helical blade, 5mm distal locking screw Patient was identified in the preoperative holding area. Operative extremity was marked. Patient was then brought back to the operating room, and general anesthesia was induced without complication. Appropriate weight-based dose of Ancef was infused intravenously for antibiotic prophylaxis. Patient was then positioned on the fracture table with the traction apparatus. The nonoperative hip was flexed and placed into the well leg canales. Longitudinal traction was applied to the operative hip. Fracture reduction was then performed under fluoroscopic imaging. Once acceptable reduction had been achieved, the right hip was then prepped and draped in a standard sterile fashion using Chlorhexidine prep. I first made an incision just proximal to the greater trochanter in line with the femoral shaft axis, and split the fibers of the iliotibial band. I then bluntly palpated down to the greater trochanter and inserted the guidewire down to the tip of the greater trochanter. It was appropriately positioned on AP and lateral images, and then driven into the proximal femur. I then inserted the soft tissue protector down to the tip of the greater trochanter and then passed the entry reamer over top of the guidewire. It was advanced down towards the lesser trochanter to open the proximal femur. I then inserted the Synthes short TFN attached to the targeting arm into the proximal femur. I malleted it down to an appropriate depth for proper trajectory of the helical blade into the femoral head. Once the nail was at an appropriate depth, I then attached the targeting guide for the helical blade onto the targeting arm. Incision was made in line with the guide through the skin and iliotibial band. The guide sleeve was placed against the lateral cortex of the femur. Guidewire was then inserted through the guide and up into the femoral neck and head. I verified proper placement and trajectory under both AP and lateral images. I advanced the guidewire to the subchondral bone in the femoral head and verified proper depth on orthogonal images. I then measured the depth off of the guidewire. The drill for the helical blade was then set at an appropriate level to match the measured length. The drill was then advanced to the set depth. An appropriate length helical blade was selected and malleted into place over the guidewire. The fracture site was then compressed through the helical blade with the compression ring. I then deployed the set screw proximally to prevent rotation of the helical blade during fracture compression. Fracture compression was then applied using the compression ring on the helical blade targeting sleeve. I then made an incision for the distal locking screw in line with the drill guide through skin and iliotibial band. I then placed the drill sleeve down on the lateral cortex of the femur and drilled through the distal locking hole. Screw length was then measured off of the calibrated drill bit, and an appropriate length was selected and then inserted. The screw length was verified under fluoroscopic imaging. Final fluoroscopic images were then obtained to ensure proper hardware placement, screw length, and fracture reduction. The wounds were then copiously irrigated with sterile saline. I then closed the iliotibial band and deep dermal tissue with #0 Vicryl suture. Subcutaneous tissues closed with 3-0 Vicryl suture, and skin was closed with luis. Sterile dressings were then applied with Xeroform, sterile gauze, and foam tape. Drapes were then removed and traction apparatus was disconnected. The patient was awakened from general anesthesia, transferred over to the stretcher, and taken to the Post Anesthesia Care Unit in stable condition. There were no immediate complications from the procedure. I was present and scrubbed for the entire procedure. Due to the complex nature of the procedure, the entire surgery was performed with the operational assistance of Stan Rollins PA-C. The cataloging assistant, under direct supervision, was involved in the performance of all aspects of the surgical procedure including hemostasis, tissue incision and retraction, instrument management, patient positioning, and wound closure. I attest to the content of the Intraoperative Record and any orders documented therein. Any exceptions are noted below.
--- NOTE | 2022-11-21 09:10 | Fluoroscopy Report ---
FL hip RT 2-3V CLINICAL HISTORY: RIGHT TROCHNAIL COMPARISON STUDY: Pelvis and right hip radiographs November 20, 2022. FLUOROSCOPY TIME: 43 seconds. kevyn Adams: 4.96 mGy FLUOROSCOPIC IMAGES: 4 FINDINGS: Fluoroscopy was provided during internal fixation of the intertrochanteric fracture of the right femur with trochanteric nail. Fracture alignment has significantly improved and appears near an atomic. Hardware is intact. No unexpected radiopaque foreign bodies. IMPRESSION: Fluoroscopy provided during internal fixation of the intertrochanteric fracture of the r ight femur. ACT 112: Negative or not required by law. Electronically signed by: Conrado Mckeon M.D. 11/21/2022 9:08 AM
--- NOTE | 2022-11-21 09:59 | XRay Report ---
XR hip RT min 2V CLINICAL HISTORY: Postop implant position COMPARISON: Pelvis and right hip radiographs November 20, 2022. FINDINGS: Interval open reduction and internal fixation of the intertrochanteric fracture of the rig ht femur with trochanteric nail is noted. Fracture alignment has significantly improved and appears n ear anatomic. Distal screw is present. There is no fracture. No unexpected radiopaque foreign bodies. Skin luis are present. Right hip osteoarthritis is noted. IMPRESSION: Expected findings following internal fixation of the intertrochanteric fracture of the ri ght femur with trochanteric nail. ACT 112: Negative or not required by law. Electronically signed by: Conrado Mckeon M.D. 11/21/2022 9:56 AM
[2022-11-21] MEDS: sulfaSALAzine 500 MG TABLET PO SCH ×2 (10:02→20:43)
[2022-11-21] MEDS: COLESTIPOL HCL 1 GM TAB PO SCH ×2 (10:02→20:53)
[2022-11-21] MEDS: ACETAMINOPHEN 500 MG TAB PO SCH ×4 (10:03→20:44)
--- NOTE | 2022-11-21 10:54 | Anesthesiology Progress Note ---
Date of Service November 21, 2022 Anesthesia Post Procedure Vital Signs Vital Signs: Temp Pulse Pulse Pulse Resp BP BP 11/21/22 10:51 97.2 F L 91 H 12 11/21/22 10:30 97.3 F L 90 16 11/21/22 10:10 97.7 F 88 16 11/21/22 10:00 84 16 11/21/22 09:50 87 16 11/21/22 09:30 84 21 11/21/22 09:20 87 20 11/21/22 09:40 83 13 11/21/22 09:12 98.4 F 84 19 11/21/22 08:05 98.2 F 89 12 154/70 H 11/21/22 03:18 98.1 F 91 H 16 145/78 H 11/20/22 22:00 92 H 11/20/22 22:15 97.9 F 91 H 18 135/73 11/20/22 19:28 97.3 F L 87 16 145/84 H 11/20/22 17:41 168/81 H 11/20/22 17:36 74 11/20/22 17:19 11/20/22 16:43 97.5 F L 71 18 219/105 H 11/20/22 15:56 72 19 11/20/22 15:20 74 19 11/20/22 14:30 70 18 183/101 H 11/20/22 14:16 66 17 160/82 H 11/20/22 14:09 72 18 207/103 H 11/20/22 13:30 70 16 211/105 H 11/20/22 13:00 73 17 207/106 H 11/20/22 12:19 96.8 F L 88 18 224/115 H 11/20/22 12:54 75 BP Pulse Ox O2 Del Method O2 Flow Rate 11/21/22 10:51 167/80 H 99 Nasal Cannula 2 11/21/22 10:30 167/81 H 94 Nasal Cannula 2 11/21/22 10:10 166/88 H 93 Nasal Cannula 2 11/21/22 10:00 154/72 H 93 Nasal Cannula 2 11/21/22 09:50 143/79 H 92 Nasal Cannula 2 11/21/22 09:30 170/72 H 95 Nasal Cannula 2 11/21/22 09:20 164/71 H 96 Nasal Cannula 2 11/21/22 09:40 140/84 95 Nasal Cannula 2 11/21/22 09:12 166/78 H 99 Oxymask 9 11/21/22 08:05 94 Nasal Cannula 2 11/21/22 03:18 96 Nasal Cannula 2 11/20/22 22:00 11/20/22 22:15 93 Nasal Cannula 2 11/20/22 19:28 94 Nasal Cannula 2 11/20/22 17:41 11/20/22 17:36 11/20/22 17:19 Nasal Cannula 2 11/20/22 16:43 97 Nasal Cannula 2 11/20/22 15:56 190/87 H 98 11/20/22 15:20 202/110 H 95 11/20/22 14:30 100 11/20/22 14:16 94 11/20/22 14:09 93 Nasal Cannula 2 11/20/22 13:30 97 11/20/22 13:00 89 L 11/20/22 12:19 93 Room Air 11/20/22 12:54 Pain Intensity Right Hip: Pain Intensity: 3 Transfer of Care Handoff Completed per policy Notes Mental Status: alert / awake / arousable and participated in evaluation Patient Amnestic to Procedure: Yes Nausea / Vomiting: adequately controlled Pain: adequately controlled Airway Patency, RR, SpO2: stable & adequate BP & HR: stable & adequate Hydration State: stable & adequate Neuraxial Anesthesia: was administered and sensory block is resolving Anesthetic Complications: no major complications apparent and Pt Satisfied with anesthetic care
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
[2022-11-21] MEDS: METOPROLOL SUCC 25MG EXT REL TAB PO SCH (13:10)
[2022-11-21] MEDS: PANTOprazole 40 MG TAB PO SCH (13:10)
[2022-11-21] MEDS: amLODIPine BESYLATE 5 MG TAB PO SCH (13:11)
[2022-11-21] MEDS: hydrALAZINE HCL 20 MG/ML VIAL IV PRN (15:12)
[2022-11-21] MEDS: MoRPHine SULFATE 2 MG/ML CARP IV PRN (15:46)
[2022-11-21] MEDS ORDERED: hydrALAZINE HCL 20 MG/ML VIAL IV PRN (16:30)
--- NOTE | 2022-11-21 16:30 | Hospitalist Progress Note ---
Date of Service November 21, 2022 Assessment & Plan (1) Fracture, intertrochanteric, right femur: (2) Fall: Plan This is an 87-year-old female who has significant past medical history of CAD with history of stent, HTN, HLD, history of renal artery stenosis, subclavian stenosis, GERD, CKD stage IIIb, senile osteoporosis who presents to ED after fall. Fall Possible age-related osteoporosis with current pathological fracture of intertrochanteric right femur Admit to med telemetry due to hypertension Consult orthopedics N.p.o. after midnight Chest x-ray and EKG reviewed Due to underlying cognitive deficits unable to assess METS Pt ambulatory at baseline and would benefit from urgent surgical repair Once blood pressure under better control she will be medical stable to undergo repair consult orthopedics-appreciate input and recommendation Schedule Tylenol, Oxy IR for moderate pain and IV morphine for severe pain Bedrest-Will need to have PT and OT evaluation after surgery Lira catheter place Preop antibiotics ordered obtain vit d level Status post right hip short trochanteric femoral nail placement on 11/21/2022 Remains stable following the procedure PT OT has been ordered and she will need to be placed CAD with hx of cardiac stent HTN Urgency reported renal artery stenosis, R subclavian stenosis unknown pt compliance with medications per med rec on metoprolol, hctz and amlodipine unknown if taken today will give amlodipine 5mg x 1 now continue home BP meds prn hydralazine Blood pressure remains very high-we will continue with current medications Cognitive deficits ? underlying dementia but no formal diagnosis pt on mirtazapine at bedtime will consult psych for decision making capacity Daughter Aye at bedside who reports she is POA feels pt unsafe at home given current situation, during last hospital stay and at rehab wishes to explore medical terminologist placement however was unable to obtain this will determine pts decision making capacity encouraged daughter to bring in paper work for POA status Appreciate psychiatric input and await further recommendation COPD former smoker not on inhalers, per family suppose to be on oxygen but pt/caregiver never obt ained No signs and or symptoms of exacerbation CKD-3b cr baseline 1.2 bun/cr 1.33 will give gentle IVF while NPO Collagenous Colitis continue sulfasalazine DVT ppx: SCDS for now, will need chemical prophylaxis depending on surgical timeline DNR/DNI PCP: Esteban Dispo: pt with difficult family dynamics, daughter at bedside states she is POA, encouraged to bring paperwork stating such; however daughter pt lives with it reported unsafe, freq falls, not taking medications, pt not cared for. There is also documentation in EPIC from previous PCP note from August that she contacted [facility] due to welfare of the pt and concern regarding compliance with medical treatments. Daughter at bedside wishes to have patient placement post hospitalization for safety of patient; however when at [facility] this was never done because patient refused to do so. I do feel pt has underlying cognitive deficits and feel her decision making capacity is not competent. I will have psychiatry weigh in on her capacity. Will need CM involvement with this difficult family situation. Discussed with the daughter in detail Admission and Anticipated Discharge Date Admission Date: November 20, 2022 Subjective 11/21/2022 The patient was seen and examined in medical telemetry unit in presence of the family members She is a status post repair of the right hip Remains stable following surgery and denies any significant symptoms Review of Systems Review of Systems: All systems reviewed and are unremarkable except as noted below Physical Exam Physical Exam: Lying in bed comfortably Constitutional: + ill appearing and average body habitus Eyes: PERRL, conjunctivae normal, anicteric sclerae ENMT: external ear and nose normal, oropharynx normal Neck: trachea midline, no thyromegaly Respiratory: no respiratory distress Auscultation: + diminished lung sounds and + crackles (Minimal crackles at the bases) Cardiovascular: Rate/Rhythm: regular rate and regular rhythm; not tachycardic Heart Sounds: normal S1, normal S2 and + murmur Extremities: no edema Gastrointestinal (Abdomen): Inspection/Auscultation: normal bowel sounds; abdomen not distended Percussion/Palpation: abdomen soft; abdomen nontender Musculoskeletal: Right hip pain with movement Neurologic: Alert and awake and oriented. Generally weak. Moves all limbs Lymphatic: no cervical or axillary lymphadenopathy Results & Data Results & Data Vital Signs (Past 12 Hours) Vital Signs Temp Pulse Pulse Pulse Resp BP BP 11/21/22 14:55 36.6 C 87 16 201/91 H 11/21/22 15:08 180/90 H 11/21/22 13:46 37.5 C 96 H 14 183/67 H 11/21/22 10:21 85 11/21/22 10:40 86 11/21/22 12:45 36.4 C 93 H 14 184/83 H 11/21/22 11:49 37.2 C 92 H 14 151/77 H 11/21/22 11:22 36.8 C 93 H 12 159/90 H 11/21/22 10:53 11/21/22 10:51 36.2 C L 91 H 12 167/80 H 11/21/22 10:30 36.3 C L 90 16 167/81 H 11/21/22 10:10 36.5 C 88 16 166/88 H 11/21/22 10:00 84 16 154/72 H 11/21/22 09:50 87 16 143/79 H 11/21/22 09:30 84 21 170/72 H 11/21/22 09:20 87 20 164/71 H 11/21/22 09:40 83 13 140/84 11/21/22 09:12 36.9 C 84 19 166/78 H 11/21/22 08:05 36.8 C 89 12 154/70 H Pulse Ox O2 Del Method O2 Flow Rate 11/21/22 14:55 92 Nasal Cannula 2 11/21/22 15:08 11/21/22 13:46 94 Nasal Cannula 2 11/21/22 10:21 11/21/22 10:40 11/21/22 12:45 95 Room Air 11/21/22 11:49 97 Nasal Cannula 2 11/21/22 11:22 96 Nasal Cannula 2 11/21/22 10:53 Nasal Cannula 2 11/21/22 10:51 99 Nasal Cannula 2 11/21/22 10:30 94 Nasal Cannula 2 11/21/22 10:10 93 Nasal Cannula 2 11/21/22 10:00 93 Nasal Cannula 2 11/21/22 09:50 92 Nasal Cannula 2 11/21/22 09:30 95 Nasal Cannula 2 11/21/22 09:20 96 Nasal Cannula 2 11/21/22 09:40 95 Nasal Cannula 2 11/21/22 09:12 99 Oxymask 9 11/21/22 08:05 94 Nasal Cannula 2 Laboratory Results Short CBC 11/21/22 Range/Units 06:30 WBC 7.30 (4.8-10.8) K/ul Hgb 13.3 (12.0-16.0) g/dl Hct 40.9 (37.0-47.0) % Plt Count 224 (130-400) K/uL BMP 11/21/22 06:30 Sodium 137 Potassium 4.3 Chloride 102 Carbon Dioxide 29 BUN 28 H Creatinine 1.29 H Glucose 93 Calcium 9.2 Medications Administered Current Inpatient Medications Acetaminophen (Acetaminophen 325 Mg Tab) 650 mg PO Q4H PRN PRN Reason: Pain or Fever Stop: 12/20/22 16:42 Acetaminophen (Acetaminophen 500 Mg Tab) 500 mg PO QID COUNTS INCLUDE 234 BEDS AT THE [facility] Stop: 12/20/22 16:59 Last Admin: 11/21/22 13:11 Dose: 500 mg Al Hydrox/Mg Hydrox/Simethicone (Aluminum/Magnesium Susp 30 Ml Udc) 15 ml PO Q4H PRN PRN Reason: Dyspepsia Stop: 12/20/22 16:42 Amlodipine Besylate (Amlodipine Besylate 5 Mg Tab) 2.5 mg PO DAILY COUNTS INCLUDE 234 BEDS AT THE [facility] Stop: 12/21/22 08:59 Last Admin: 11/21/22 13:11 Dose: 2.5 mg Bisacodyl (Bisacodyl 10 Mg Supp) 10 mg [place] DAILY PRN PRN Reason: Constipation Stop: 12/20/22 16:42 Colestipol HCl (Colestipol Hcl 1 Gm Tab) 2 gm PO BID@1000,2200 COUNTS INCLUDE 234 BEDS AT THE [facility] Stop: 12/20/22 21:59 Last Admin: 11/21/22 10:02 Dose: Not Given Hydralazine HCl (Hydralazine Hcl 20 Mg/Ml Vial) 5 mg IV Q6H PRN PRN Reason: SBP > 180 Stop: 12/20/22 16:42 Last Admin: 11/21/22 15:12 Dose: 5 mg Cefazolin Sodium (Ancef 1000mg) 1,000 mg in 7.5 mls @ 2.5 mls/min IV Q8H COUNTS INCLUDE 234 BEDS AT THE [facility]; Protocol Stop: 11/22/22 00:02 Magnesium Hydroxide (Magnesium Hydroxide Susp 30 Ml Udc) 30 ml PO Q12H PRN PRN Reason: Constipation Stop: 12/20/22 16:42 Metoprolol Succinate (Metoprolol Succ 25mg Ext Rel Tab) 75 mg PO DAILY COUNTS INCLUDE 234 BEDS AT THE [facility] Stop: 12/21/22 08:59 Last Admin: 11/21/22 13:10 Dose: 75 mg Mirtazapine (Mirtazapine Tab 15 Mg Tab) 7.5 mg PO HS COUNTS INCLUDE 234 BEDS AT THE [facility] Stop: 12/20/22 20:59 Last Admin: 11/20/22 20:36 Dose: 7.5 mg Morphine Sulfate (Morphine Sulfate 2 Mg/Ml Carp) 2 mg IV Q4H PRN PRN Reason: Severe pain 7,8, 9, 10 Stop: 12/04/22 16:42 Last Admin: 11/21/22 15:46 Dose: 2 mg Naloxone HCl (Naloxone Hcl 0.4 Mg/1 Ml Vial/Carp) 0.1 mg IV UD PRN PRN Reason: Opiate Overdose Stop: 12/20/22 16:42 Ondansetron HCl (Ondansetron Inj 2 Mg/Ml 2 Ml Vial) 4 mg IV Q6H PRN PRN Reason: Nausea Stop: 12/20/22 16:42 Last Admin: 11/20/22 18:07 Dose: 4 mg Oxycodone HCl (Oxycodone Hcl Ir 5 Mg Tab (Immediate Release)) 2.5 mg PO Q4H PRN PRN Reason: MODERATE Pain (4,5,6) & Pre PT Stop: 12/04/22 16:42 Pantoprazole Sodium (Pantoprazole 40 Mg Tab) 40 mg PO DAILY ALEJANDRO Stop: 12/21/22 08:59 Last Admin: 11/21/22 13:10 Dose: 40 mg Polyethylene Glycol (Polyethylene (Miralax) 17 Gm Pack) 17 gm PO DAILY PRN PRN Reason: Constipation Stop: 12/20/22 16:42 Rivaroxaban (Rivaroxaban 10 Mg Tablet) 10 mg PO DAILY ALEJANDRO Stop: 12/22/22 08:59 Senna/Docusate Sodium (Docusate Sodium/Senna 50/8.6mg Tab) 2 tab PO HS [facility]LEJANDRO Stop: 12/20/22 20:59 Last Admin: 11/20/22 20:35 Dose: 2 tab Sulfasalazine (Sulfasalazine 500 Mg Tablet) 500 mg PO BID ALEJANDRO Stop: 12/20/22 20:59 Last Admin: 11/21/22 10:02 Dose: Not Given
[2022-11-21] MEDS: ceFAZolin 1000MG 1,000 MG/7.5 ML SYR IV SCH (16:36)
[2022-11-21] MEDS: ONDANSETRON INJ 2 MG/ML 2 ML VIAL IV PRN (16:48)
[2022-11-21] MEDS: DOCUSATE SODIUM/SENNA 50/8.6MG TAB PO SCH (20:43)
[2022-11-21] MEDS: MIRTAZAPINE TAB 15 MG TAB PO SCH (20:43)
[2022-11-22] MEDS: ceFAZolin 1000MG 1,000 MG/7.5 ML SYR IV SCH (00:21)
--- NOTE | 2022-11-22 06:19 | Electrocardiogram Report ---
Test Reason : Blood Pressure : / mmHG Vent. Rate : 077 BPM Atrial Rate : 077 BPM P-R Int : 142 ms QRS Dur : 090 ms QT Int : 384 ms P-R-T Axes : 083 031 101 degrees QTc Int : 434 ms Poor data quality, interpretation may be adversely affected Sinus rhythm with Premature ventricular complexes Nonspecific T wave abnormality Abnormal ECG When compared with ECG of 26-JUL-2022 06:00, Premature ventricular complexes are now Present T wave inversion no longer evident in Anterior leads Confirmed by Mike Johnson ([id number]) on 11/22/2022 6:19:04 AM Referred By: Confirmed By:Mike Johnson
[2022-11-22 07:21] LABS: BUN Creatinine Ratio 19.1 (10-20); Calcium 9.3 mg/dl (8.6-10.3); Creatinine Clr Calc Pharmacy 20.1 ml/min; Est GFR (African American) 38.7 ml/min; Est GFR (Non-African American) 33.4 ml/min; Potassium 4.4 mmol/L (3.5-5.1)
[2022-11-22 07:23] LABS: Basophils # (auto) 0.04 K/uL (0-0.2); Basophils % (auto) 0.5 %; Hematocrit (blood only) 40.6 % (37.0-47.0); Hemoglobin 12.7 g/dl (12.0-16.0); Immature Granulocytes # (auto) 0.04 K/uL (0.01-0.20); Immature Granulocytes % (auto) 0.5 %; Lymphocytes # (auto) 1.27 K/uL (1.2-3.4); Lymphocytes % (auto) 15.7 %; Mean Corpuscular Hgb Conc 31.3 g/dL (32.0-36.0); Mean Corpuscular Volume 92.7 fL (80.0-100.0); Mean Platelet Volume 10.6 fL (9.4-12.4); Monocytes # (auto) 1.16 K/uL (0.11-0.59); Monocytes % (auto) 14.4 %; Neutrophils # (auto) 5.57 K/uL (1.40-6.50); Neutrophils % (auto) 68.9 %; Platelet Count 213 K/uL (130-400); RDW Coefficient of Variation 13.7 % (11.5-14.5); RDW Standard Deviation 46.5 fL (36.4-46.3); Red Blood Count 4.38 M/uL (4.20-5.40); White Blood Count 8.08 K/ul (4.8-10.8)
[2022-11-22] MEDS: PANTOprazole 40 MG TAB PO SCH ×2 (08:49→09:11)
[2022-11-22] MEDS: amLODIPine BESYLATE 5 MG TAB PO SCH (08:49)
[2022-11-22] MEDS: ACETAMINOPHEN 500 MG TAB PO SCH ×4 (08:50→20:13)
[2022-11-22] MEDS: sulfaSALAzine 500 MG TABLET PO SCH ×2 (08:50→20:12)
[2022-11-22] MEDS: METOPROLOL SUCC 25MG EXT REL TAB PO SCH (08:50)
[2022-11-22] MEDS: RIVAROXABAN 10 MG TABLET PO SCH (09:55)
--- NOTE | 2022-11-22 10:47 | Psychiatric Progress Note ---
Date of Service November 22, 2022 Impression / Recommendations Impression 87 yo woman with reported diagnosis of dementia in the past, HTN, COPD, CAD admitted medically for hip fracture s/p recent fall at home. Diagnostically unclear if her lack of orientation (even to basic facts of being in the hospital) is due to component of delirium from surgery superimposed on underlying baseline major cognitive disorder if this fully represents her typically cognitive baseline. Per chart review surgery notes from the orthopedic provider note that she was not alert or oriented at time of discussion about surgery and therefore consent was deferred to her daughter suggestive that her current presentation is more consistent with her baseline. No other current symptoms to suggest signs of hypo nor hyper active delirium but she is certainly at high risk given her age, s/p surgery, and underlying baseline cognitive deficits. Formal cognitive testing via MOCA was unable to be completed due to level of her current cognitive deficits i.e. not even oriented to place. In terms of decision making capacity to refuse subacute rehab placement or leave AMA she does not have decision making capacity for either at this time given her severely impaired orientation, lack of insight and inability to discuss her current medical condition, understand the situation and consequences nor able to provide a reason for her decision. Encouragingly currently she states she wants to follow the recommendations of the medical team. Agree with case management involvement given complicated family dynamics and one of her daughter's concerns about the safety of her current housing situation. Shavonne De Jesus tells me she feels safe at home but given her significant cognitive deficits it seems that further exploration with office of aging would be very reasonable. (1) Encounter for assessment of decision-making capacity: (2) Major neurocognitive disorder: Plan -She does not have decision making capacity to refuse placement recommendations nor to leave AMA -If her level of orientation does not improve over time, thus suggestive of major neurocognitive disorder/dementia rather than interim deficits due to delirium, then STRONGLY RECOMMEND THAT SHE BE EVALUATED FOR SAFETY TO CONTINUE DRIVING -Consider melatonin 3mg qhs to reduce risk for delirium -Continue to avoid or limit use of deliriogenic medications (benzodiazepines, opioids, anticholinergics) -Continue with delirium prevention measures: raising blinds during the day, closing at night, frequent re-orientation, contact with family/friends, explaining procedures/nursing care measures prior to physical contact, correct any hearing and visual impairments Interval History Identifying Information Shavonne Nickerson is an 87 yo woman who lives with her daughter Carmen, has a history of CKD, COPD, cognitive deficits, CAD, HTN and recent falls admitted medically for hip fracture. Psychiatry consulted for decision making capacity regarding refusing SNF/subacute rehab treatment. Chief Complaint "I'm not sure". Review of Systems Notes states she slept well and ate breakfast Subjective Subjective Shavonne De Jesus was seen mid-morning at bedside. She was alert, pleasant and cooperative with interview. No evidence for acute distress nor pain. States her mood is "ok". She is not oriented to place (even after being introduced to my role as a physician and shown my hospital ID badge and reminded of her hip surgery yesterday), doesn't know the city (recalls that she lives in [place] when asked this), doesn't know the month (believes it is September and is surprised to hear it is November), doesn't know the year and can't make a guess. She is able to describe living with her daughter Carmen. States Carmen does the cooking and helps with her medications stating "we both do it" in terms of organizing her medications. States she drives, goes grocery shopping and picks up her medications from the pharmacy. Uses a walker at home, thinks she fell after tripping on something. States she will be agreeable to subacute rehab if that is the recommendation of PT/OT and orthopedics. Procedures Performed Operation Date: 11/21/22 07:30 Actual Procedures p Right Hip Short Trochanteric Femoral Nail(Right) - Sony Ramos M.D. Physical Exam Psychiatric Orientation: alert and oriented to person; + not oriented to place and + not oriented to time Apperance: appropriately dressed and appropriately groomed Eye Contact: + fair eye contact Motor Behavior: no abnormal motor movements Speech: + abnormal rate/rhythm/volume of speech (brief ) Affect: euthymic affect Mood: no depressed mood, no anxious mood and no irritable mood Thought Process: + looseness of associations and + concrete thought process Thought Content: reality based without delusions Suicidal Thoughts: denies suicidal thoughts Homicidal Thoughts: denies homicidal thoughts Hallucinations: no auditory hallucinations and no visual hallucinations Cognition: remote memory grossly intact, attention grossly intact and language grossly intact; + recent memory not intact Insight: + severely impaired insight Judgment: + limited judgement Vital Signs (Past 24 Hours) Last Vital Signs Temp 36.8 C 11/22/22 08:01 Pulse 91 H 11/22/22 08:01 Resp 12 11/22/22 08:01 BP 125/77 11/22/22 08:01 Pulse Ox 94 11/22/22 08:01 O2 Del Method Nasal Cannula 11/22/22 08:01 O2 Flow Rate 2 11/22/22 08:01 Results & Data ([facility]) Laboratory Results Laboratory Results - last 24 hr 11/22/22 11/22/22 05:49 05:49 WBC 8.08 RBC 4.38 Hgb 12.7 Hct 40.6 MCV 92.7 MCH 29.0 MCHC 31.3 L RDW Std Deviation 46.5 H RDW Coeff of Saulo 13.7 Plt Count 213 MPV 10.6 Immature Gran % (Auto) 0.5 Neut % (Auto) 68.9 Lymph % (Auto) 15.7 [place] % (Auto) 14.4 Eos % (Auto) 0.0 Baso % (Auto) 0.5 Neut # (Auto) 5.57 Lymph # (Auto) 1.27 [place] # (Auto) 1.16 H Eos # (Auto) 0.00 Baso # (Auto) 0.04 Immature Gran # (Auto) 0.04 Sodium 139 Potassium 4.4 Chloride 102 Carbon Dioxide 25 Anion Gap 12 H BUN 27 H Creatinine 1.41 H Est Cr Clr Drug Dosing 20.1 Est GFR ( Amer) 38.7 Est GFR (Non-Af Amer) 33.4 BUN/Creatinine Ratio 19.1 Glucose 62 L Calcium 9.3 Current Inpatient Medications Current Inpatient Medications: Current Inpatient Medications Acetaminophen (Acetaminophen 325 Mg Tab) 650 mg PO Q4H PRN PRN Reason: Pain or Fever Stop: 12/20/22 16:42 Acetaminophen (Acetaminophen 500 Mg Tab) 500 mg PO QID [facility] Stop: 12/20/22 16:59 Last Admin: 11/22/22 08:50 Dose: 500 mg Al Hydrox/Mg Hydrox/Simethicone (Aluminum/Magnesium Susp 30 Ml Udc) 15 ml PO Q4H PRN PRN Reason: Dyspepsia Stop: 12/20/22 16:42 Amlodipine Besylate (Amlodipine Besylate 5 Mg Tab) 2.5 mg PO DAILY [facility] Stop: 12/21/22 08:59 Last Admin: 11/22/22 08:49 Dose: 2.5 mg Bisacodyl (Bisacodyl 10 Mg Supp) 10 mg DC DAILY PRN PRN Reason: Constipation Stop: 12/20/22 16:42 Colestipol HCl (Colestipol Hcl 1 Gm Tab) 2 gm PO BID@1000,2200 [facility] Stop: 12/20/22 21:59 Last Admin: 11/21/22 20:53 Dose: Not Given Hydralazine HCl (Hydralazine Hcl 20 Mg/Ml Vial) 10 mg IV Q6H PRN PRN Reason: SBP > 180 Stop: 12/20/22 16:42 Magnesium Hydroxide (Magnesium Hydroxide Susp 30 Ml Udc) 30 ml PO Q12H PRN PRN Reason: Constipation Stop: 12/20/22 16:42 Metoprolol Succinate (Metoprolol Succ 25mg Ext Rel Tab) 75 mg PO DAILY [facility] Stop: 12/21/22 08:59 Last Admin: 11/22/22 08:50 Dose: 75 mg Mirtazapine (Mirtazapine Tab 15 Mg Tab) 7.5 mg PO HS [facility] Stop: 12/20/22 20:59 Last Admin: 11/21/22 20:43 Dose: 7.5 mg Morphine Sulfate (Morphine Sulfate 2 Mg/Ml Carp) 2 mg IV Q4H PRN PRN Reason: Severe pain 7,8, 9, 10 Stop: 12/04/22 16:42 Last Admin: 11/21/22 15:46 Dose: 2 mg Naloxone HCl (Naloxone Hcl 0.4 Mg/1 Ml Vial/Carp) 0.1 mg IV UD PRN PRN Reason: Opiate Overdose Stop: 12/20/22 16:42 Ondansetron HCl (Ondansetron Inj 2 Mg/Ml 2 Ml Vial) 4 mg IV Q6H PRN PRN Reason: Nausea Stop: 12/20/22 16:42 Last Admin: 11/21/22 16:48 Dose: 4 mg Oxycodone HCl (Oxycodone Hcl Ir 5 Mg Tab (Immediate Release)) 2.5 mg PO Q4H PRN PRN Reason: MODERATE Pain (4,5,6) & Pre PT Stop: 12/04/22 16:42 Pantoprazole Sodium (Pantoprazole 40 Mg Tab) 40 mg PO DAILY [facility] Stop: 12/21/22 08:59 Last Admin: 11/22/22 09:11 Dose: Not Given Polyethylene Glycol (Polyethylene (Miralax) 17 Gm Pack) 17 gm PO DAILY PRN PRN Reason: Constipation Stop: 12/20/22 16:42 Rivaroxaban (Rivaroxaban 10 Mg Tablet) 10 mg PO DAILY [facility] Stop: 12/22/22 08:59 Last Admin: 11/22/22 09:55 Dose: 10 mg Senna/Docusate Sodium (Docusate Sodium/Senna 50/8.6mg Tab) 2 tab PO HS [facility] Stop: 12/20/22 20:59 Last Admin: 11/21/22 20:43 Dose: 2 tab Sulfasalazine (Sulfasalazine 500 Mg Tablet) 500 mg PO BID [facility] Stop: 12/20/22 20:59 Last Admin: 11/22/22 08:50 Dose: 500 mg
--- NOTE | 2022-11-22 11:38 | Orthopedic Progress Note ---
Date of Service November 22, 2022 Assessment & Plan (1) Fracture, intertrochanteric, right femur: Plan: Postoperative day #1 status post right hip short cephalomedullary nailing for intertrochanteric femur fracture. -Toe-touch weightbearing on the right leg -DVT prophylaxis with Xarelto 10 mg daily as she has a documented allergy to aspirin -Out of bed with assistance with physical therapy; will likely require frequent reeducation about weightbearing restrictions due to memory difficulties. -We will likely require rehab/SNF placement after discharge; daughter reports they were trying to get her placement even prior to this hip fracture. -Discharge when stable from a medicine perspective. Follow-up with Dr. Ramos in orthopedics clinic 10-14 days after surgery. Please call [facility] at [phone] to make an appointment. Orthopedic-specific discharge instructions placed in the Discharge section of the chart. Admission and Anticipated Discharge Date Admission Date: November 20, 2022 Subjective Patient is resting comfortably in bed in no apparent distress. When directly questioned, she does endorse right hip pain. She does not recall having surgery yesterday. Physical Exam Physical Exam: Examination of the right hip reveals that her dressings are clean, dry, and intact. Thigh is soft and compressible. Motor and sensory function is intact distally. Results & Data Vital Signs (Past 12 Hours) Vital Signs Temp Pulse Pulse Resp BP Pulse Ox O2 Del Method 11/22/22 08:01 36.8 C 91 H 12 125/77 94 Nasal Cannula 11/22/22 07:30 36.9 C 97 H 14 168/80 H 92 Room Air 11/22/22 02:35 36.8 C 85 18 160/76 H 93 Nasal Cannula O2 Flow Rate 11/22/22 08:01 2 11/22/22 07:30 11/22/22 02:35 2 Diagnostic Findings Postoperative x-rays of the right hip were reviewed. They look good. Intertrochanteric fracture is well aligned. No evidence of hardware failure or loosening.
[2022-11-22] MEDS: COLESTIPOL HCL 1 GM TAB PO SCH ×2 (11:44→20:12)
[2022-11-22] MEDS: PANTOprazole 40 MG in SYRINGE 0 ML IV SCH (14:21)
[2022-11-22] MEDS ORDERED: GLUCOSE 10 TAB/TUBE PO PRN (16:29)
[2022-11-22] MEDS ORDERED: GLUCOSE 40% GEL 15 GM TUBE PO PRN (16:29)
[2022-11-22] MEDS ORDERED: GLUCAGON FOR INJ 1 MG VIAL SQ PRN (16:29)
[2022-11-22] MEDS ORDERED: CARBOHYDRATES FOR HYPOGLYCEMIA PO PRN (16:29)
[2022-11-22] MEDS ORDERED: DEXTROSE 50% 50 ML SYRINGE IV PRN (16:29)
[2022-11-22] MEDS ORDERED: D5W AND 1/2NSS 1,000 ML IV ONE (16:34)
--- NOTE | 2022-11-22 16:46 | Hospitalist Progress Note ---
Date of Service November 22, 2022 Assessment & Plan (1) Fracture, intertrochanteric, right femur: (2) Fall: Plan Patient is an 87 yr old female who has significant past medical history of CAD with history of stent, HTN, HLD, history of renal artery stenosis, subclavian stenosis, GERD, CKD stage IIIb, senile osteoporosis who presents to ED after fall. Right Intertrochanteric femur fracture Secondary to Fall Possible age-related osteoporosis with current pathological fracture of intertrochanteric right femur S/P Right hip short cephalomedullary nailing for intertrochanteric femur fracture by on 11/21/22 Toe-touch weightbearing on the right leg Continue PT OT Fall precautions On Xarelto for anticoagulation Appreciate orthopedics input We will need to discharge to SNF as able Needs follow-up with orthopedics upon discharge Dysphagia Advance diet as tolerated Speech Therapy consulted Hypoglycemia Likely due to poor oral intake Placed on Hypoglycemia Protocol Monitor BGs Hypomagnesemia Replete electrolytes as needed Hypertensive urgency Likely situational secondary to pain BP variable Continue current medications Monitor BP CAD S/P Cardiac stent Reported renal artery stenosis, R subclavian stenosis Unknown pt compliance with medications Continue Home meds Cognitive deficits ? Underlying dementia but no formal diagnosis Continue Mirtazapine Appreciate Psychiatry Input: Patient does not have decision-making capacity to refuse placement recommendations not to leave AMA as per psychiatry Continue melatonin to minimize delirium Avoid benzos, opiates, anticholinergics as able Delirium precautions COPD Former smoker not on inhalers, per family suppose to be on oxygen but pt/caregiver never obta ined No signs and or symptoms of exacerbation Continue supplemental oxygen as needed CKD III Cr baseline 1.2 IV fluids as needed Monitor renal function Avoid nephrotoxic agents as able Collagenous Colitis continue sulfasalazine DVT Px: Xarelto Code Status DNI/DNR Disposition Case management to help with discharge planning Admission and Anticipated Discharge Date Admission Date: November 20, 2022 Subjective Patient is seen and examined at bedside Oriented to person only this morning Poor historian States having mild right hip pain at surgical site Offers no other complaints Review of Systems Review of Systems: All systems reviewed & are unremarkable except as noted in Subjective Physical Exam Physical Exam: Physical Exam: Vitals signs as noted above General Appearance:Moderately built and nourished, no apparent distress Head: normocephalic, Atraumatic Eyes: normal inspection, EOMI Neck: supple, Trachea midline Respiratory/Chest: Decreased breath sounds, CTA, No accessory muscle use Cardiovascular: S1, S2, + murmur Abdomen/GI:Soft, Non tender, Bowel sounds present Extremities/Musculoskeletal:normal inspection, no edema, R hip surgical site in dressing Neurologic/Psych:AAOX1, grossly no focal neurological deficits Skin: normal color, warm Results & Data Results & Data Vital Signs (Past 12 Hours) Vital Signs Temp Pulse Pulse Resp BP Pulse Ox O2 Del Method 11/22/22 15:02 36.5 C 91 H 18 106/62 93 Nasal Cannula 11/22/22 11:57 36.4 C L 96 H 14 146/78 H 92 Nasal Cannula 11/22/22 08:01 36.8 C 91 H 12 125/77 94 Nasal Cannula 11/22/22 07:30 36.9 C 97 H 14 168/80 H 92 Room Air O2 Flow Rate 11/22/22 15:02 1.5 11/22/22 11:57 2 11/22/22 08:01 2 11/22/22 07:30 Laboratory Results Short CBC 11/22/22 Range/Units 05:49 WBC 8.08 (4.8-10.8) K/ul Hgb 12.7 (12.0-16.0) g/dl Hct 40.6 (37.0-47.0) % Plt Count 213 (130-400) K/uL BMP 11/22/22 05:49 Sodium 139 Potassium 4.4 Chloride 102 Carbon Dioxide 25 BUN 27 H Creatinine 1.41 H Glucose 62 L Calcium 9.3
[2022-11-22] MEDS: MIRTAZAPINE TAB 15 MG TAB PO SCH (20:12)
[2022-11-22] MEDS: DOCUSATE SODIUM/SENNA 50/8.6MG TAB PO SCH (20:13)
[2022-11-23] MEDS: MoRPHine SULFATE 2 MG/ML CARP IV PRN ×3 (07:46→18:24)
[2022-11-23 07:53] LABS: Hematocrit (blood only) 37.9 % (37.0-47.0); Hemoglobin 12.1 g/dl (12.0-16.0)
[2022-11-23 08:09] LABS: BUN Creatinine Ratio 20.3 (10-20); Calcium 8.7 mg/dl (8.6-10.3); Est GFR (African American) 43.5 ml/min; Est GFR (Non-African American) 37.6 ml/min; Magnesium 1.5 mg/dl (1.7-2.4); Potassium 3.4 mmol/L (3.5-5.1)
[2022-11-23] MEDS: POTASSIUM CHLORIDE / WTR 10 MEQ/100 ML PLCT IV SCH ×2 (10:42→11:50)
[2022-11-23] MEDS: MAGNESIUM SULFATE / D5W 1 GM/100 ML BAG IV SCH ×2 (10:43→12:24)
[2022-11-23] MEDS: PANTOprazole 40 MG in SYRINGE 0 ML IV SCH (10:45)
[2022-11-23] MEDS: RIVAROXABAN 10 MG TABLET PO SCH (10:45)
[2022-11-23] MEDS: ACETAMINOPHEN 500 MG TAB PO SCH ×4 (10:45→21:32)
[2022-11-23] MEDS: sulfaSALAzine 500 MG TABLET PO SCH ×2 (10:45→21:32)
[2022-11-23] MEDS: COLESTIPOL HCL 1 GM TAB PO SCH ×2 (10:45→21:33)
[2022-11-23] MEDS: METOPROLOL SUCC 25MG EXT REL TAB PO SCH (10:45)
[2022-11-23] MEDS: amLODIPine BESYLATE 5 MG TAB PO SCH (10:45)
[2022-11-23] MEDS: D5W AND 1/2NSS + 20MEQ KCL 20 MEQ/1,000 ML BAG IV SCH (12:24)
[2022-11-23] MEDS: ONDANSETRON INJ 2 MG/ML 2 ML VIAL IV PRN (12:54)
--- NOTE | 2022-11-23 16:59 | Hospitalist Progress Note ---
Date of Service November 23, 2022 Assessment & Plan (1) Fracture, intertrochanteric, right femur: (2) Fall: Plan Patient is an 87 yr old female who has significant past medical history of CAD with history of stent, HTN, HLD, history of renal artery stenosis, subclavian stenosis, GERD, CKD stage IIIb, senile osteoporosis who presents to ED after fall. Right Intertrochanteric femur fracture Secondary to Fall Possible age-related osteoporosis with current pathological fracture of intertrochanteric right femur S/P Right hip short cephalomedullary nailing for intertrochanteric femur fracture by on 11/21/22 Toe-touch weightbearing on the right leg Continue PT OT Fall precautions On Xarelto for anticoagulation Appreciate orthopedics input Discharge to SNF as able Needs follow-up with orthopedics upon discharge Continue current management Dysphagia Advance diet as tolerated Speech Therapy consulted Aspiration precautions IV fluids as needed Hypoglycemia Likely due to poor oral intake Placed on Hypoglycemia Protocol Monitor BGs Hypomagnesemia Replete electrolytes as needed Hypertensive urgency Likely situational secondary to pain BP variable Continue current medications Monitor BP CAD S/P Cardiac stent Reported renal artery stenosis, R subclavian stenosis Unknown pt compliance with medications Continue Home meds Cognitive deficits ? Underlying dementia but no formal diagnosis Continue Mirtazapine Appreciate Psychiatry Input: Patient does not have decision-making capacity to refuse placement recommendations not to leave AMA as per psychiatry Continue melatonin to minimize delirium Avoid benzos, opiates, anticholinergics as able Delirium precautions COPD Former smoker not on inhalers, per family suppose to be on oxygen but pt/caregiver never obtained No signs and or symptoms of exacerbation Continue supplemental oxygen as needed CKD III Cr baseline 1.2 IV fluids as needed Monitor renal function Avoid nephrotoxic agents as able Collagenous Colitis continue sulfasalazine DVT Px: Xarelto Code Status DNI/DNR Disposition Case management to help with discharge planning Admission and Anticipated Discharge Date Admission Date: November 20, 2022 Subjective Patient is seen and examined at bedside Had nausea, vomiting this morning Unable to take AM meds Reports hip pain at surgical site Poor historian, Forgetful Review of Systems Review of Systems: All systems reviewed & are unremarkable except as noted in Subjective Physical Exam Physical Exam: Physical Exam: Vitals signs as noted above General Appearance:Moderately built and nourished, no apparent distress Head: normocephalic, Atraumatic Eyes: normal inspection, EOMI Neck: supple, Trachea midline Respiratory/Chest: Decreased breath sounds, CTA, No accessory muscle use Cardiovascular: S1, S2, + murmur Abdomen/GI:Soft, Non tender, Bowel sounds present Extremities/Musculoskeletal:normal inspection, no edema, R hip surgical site in dressing Neurologic/Psych:AAOX1, grossly no focal neurological deficits Skin: normal color, warm Results & Data Results & Data Vital Signs (Past 12 Hours) Vital Signs Temp Pulse Pulse Resp BP Pulse Ox O2 Del Method 11/23/22 14:09 103 H 11/23/22 15:46 36.8 C 100 H 20 157/71 H 94 Nasal Cannula 11/23/22 10:15 Nasal Cannula 11/23/22 07:57 36.6 C 109 H 18 158/76 H 95 Nasal Cannula 11/23/22 06:00 84 O2 Flow Rate 11/23/22 14:09 11/23/22 15:46 2 11/23/22 10:15 2 11/23/22 07:57 2 11/23/22 06:00 Laboratory Results Short CBC 11/23/22 Range/Units 07:14 Hgb 12.1 (12.0-16.0) g/dl Hct 37.9 (37.0-47.0) % BMP 11/23/22 07:14 Sodium 138 Potassium 3.4 L D Chloride 104 Carbon Dioxide 27 BUN 26 H Creatinine 1.28 H Glucose 109 H Calcium 8.7
[2022-11-23] MEDS: DOCUSATE SODIUM/SENNA 50/8.6MG TAB PO SCH (21:32)
[2022-11-23] MEDS: MIRTAZAPINE TAB 15 MG TAB PO SCH (21:34)
[2022-11-24] MEDS: MoRPHine SULFATE 2 MG/ML CARP IV PRN (05:13)
[2022-11-24] MEDS: cloNIDine HCL 0.1 MG TAB PO PRN (05:13)
[2022-11-24] MEDS: D5W AND 1/2NSS + 20MEQ KCL 20 MEQ/1,000 ML BAG IV SCH (06:28)
[2022-11-24 06:54] LABS: BUN Creatinine Ratio 17.5 (10-20); Calcium 8.5 mg/dl (8.6-10.3); Creatinine Clr Calc Pharmacy 27.6 ml/min; Est GFR (African American) 56.6 ml/min; Est GFR (Non-African American) 48.8 ml/min; Magnesium 1.9 mg/dl (1.7-2.4)
[2022-11-24] MEDS: METOPROLOL SUCC 25MG EXT REL TAB PO SCH (09:39)
[2022-11-24] MEDS: sulfaSALAzine 500 MG TABLET PO SCH ×2 (09:39→19:18)
[2022-11-24] MEDS: COLESTIPOL HCL 1 GM TAB PO SCH ×2 (09:39→19:18)
[2022-11-24] MEDS: RIVAROXABAN 10 MG TABLET PO SCH (09:39)
[2022-11-24] MEDS: ACETAMINOPHEN 500 MG TAB PO SCH ×4 (09:40→19:19)
[2022-11-24] MEDS: amLODIPine BESYLATE 5 MG TAB PO SCH (09:40)
[2022-11-24] MEDS: PANTOprazole 40 MG in SYRINGE 0 ML IV SCH (11:08)
--- NOTE | 2022-11-24 13:56 | CT Scan Report ---
CT head/brain wo con CLINICAL HISTORY: 87 years-old Female with Altered Mental Status. Acute altered mental status TECHNIQUE: Multiple axial CT images of the head were obtained without contrast. A dose lowering tech nique was utilized adhering to the principles of ALARA. CT DOSE: 547.75 mGy.cm COMPARISON: 07/25/2022 FINDINGS: No acute intracranial hemorrhage, midline shift, intracranial mass, hydrocephalus, territorial ischem ia or abnormal extra-axial collection. Involutional changes with white matter hypodensities suggestiv e of chronic microvascular ischemic disease. The calvarium is intact. Trace mastoid effusions. Mucosal thickening of the right sphenoid sinus wit h volume loss. IMPRESSION: No acute intracranial abnormality. ACT 112: Negative or not required by law. The above report was generated using voice recognition software. It may contain grammatical, syntax o r spelling errors. Electronically signed by: Ian Gayle M.D. 11/24/2022 1:54 PM
--- NOTE | 2022-11-24 14:28 | Hospitalist Progress Note ---
Date of Service November 24, 2022 Assessment & Plan (1) Fracture, intertrochanteric, right femur: (2) Fall: Plan Patient is an 87 yr old female who has significant past medical history of CAD with history of stent, HTN, HLD, history of renal artery stenosis, subclavian stenosis, GERD, CKD stage IIIb, senile osteoporosis who presents to ED after fall. Right Intertrochanteric femur fracture Secondary to Fall Possible age-related osteoporosis with current pathological fracture of intertrochanteric right femur S/P Right hip short cephalomedullary nailing for intertrochanteric femur fracture by on 11/21/22 Toe-touch weightbearing on the right leg Continue PT OT Fall precautions On Xarelto for anticoagulation Appreciate orthopedics input Needs follow-up with orthopedics upon discharge Plan to discharge to Rehab as able Dysphagia Advance diet as tolerated Speech Therapy consulted Aspiration precautions IV fluids as needed Hypoglycemia Due to poor oral intake Placed on Hypoglycemia Protocol Monitor BGs No hypoglycemia today Hypomagnesemia Replete electrolytes as needed Hypertensive urgency Likely situational secondary to pain Continue current medications BP stable CAD S/P Cardiac stent Reported renal artery stenosis, R subclavian stenosis Unknown pt compliance with medications Continue Home meds Cognitive deficits ? Underlying dementia but no formal diagnosis --CT head:No acute intracranial abnormality. Continue Mirtazapine Appreciate Psychiatry Input: Patient does not have decision-making capacity to refuse placement recommendations not to leave AMA as per psychiatry Continue melatonin to minimize delirium Avoid benzos, opiates, anticholinergics as able Delirium precautions COPD Former smoker not on inhalers, per family suppose to be on oxygen but pt/caregiver never obtained No signs and or symptoms of exacerbation Continue supplemental oxygen as needed CKD III Cr baseline 1.2 IV fluids as needed Monitor renal function Avoid nephrotoxic agents as able Collagenous Colitis continue sulfasalazine DVT Px: Xarelto Code Status DNI/DNR Disposition Rehab as able Admission and Anticipated Discharge Date Admission Date: November 20, 2022 Subjective Patient is seen and examined at bedside Refused breakfast this morning Poor historian Lethargic during my encounter CT head showed no acute findings No distress on exam Afebrile Review of Systems Review of Systems: All systems reviewed & are unremarkable except as noted in Subjective Physical Exam Physical Exam: Physical Exam: Vitals signs as noted above General Appearance:Moderately built and nourished, no apparent distress Head: normocephalic, Atraumatic Eyes: normal inspection, EOMI Neck: supple, Trachea midline Respiratory/Chest: Decreased breath sounds, CTA, No accessory muscle use Cardiovascular: S1, S2, + murmur Abdomen/GI:Soft, Non tender, Bowel sounds present Extremities/Musculoskeletal:normal inspection, no edema, R hip surgical site in dressing Neurologic/Psych:AAOX1, grossly no focal neurological deficits Skin: normal color, warm Results & Data Results & Data Vital Signs (Past 12 Hours) Vital Signs Temp Pulse Resp BP Pulse Ox O2 Del Method O2 Flow Rate 11/24/22 11:41 36.3 C L 70 16 146/70 H 96 Room Air 11/24/22 09:45 Nasal Cannula 2 11/24/22 07:42 36.6 C 93 H 16 163/74 H 94 Room Air 11/24/22 02:57 36.6 C 104 H 18 182/75 H 93 Nasal Cannula 2 Laboratory Results [facility] 11/24/22 05:53 Sodium 136 Potassium 4.0 Chloride 104 Carbon Dioxide 28 BUN 18 Creatinine 1.03 Glucose 112 H Calcium 8.5 L
[2022-11-24] MEDS: MIRTAZAPINE TAB 15 MG TAB PO SCH (19:18)
[2022-11-24] MEDS: DOCUSATE SODIUM/SENNA 50/8.6MG TAB PO SCH (19:19)
[2022-11-25] MEDS: D5W AND 1/2NSS + 20MEQ KCL 20 MEQ/1,000 ML BAG IV SCH (03:08)
[2022-11-25] MEDS: cloNIDine HCL 0.1 MG TAB PO PRN (03:16)
[2022-11-25] MEDS ORDERED: amLODIPine BESYLATE 5 MG TAB PO SCH (09:05)
[2022-11-25] MEDS: RIVAROXABAN 10 MG TABLET PO SCH (09:44)
[2022-11-25] MEDS: sulfaSALAzine 500 MG TABLET PO SCH ×2 (09:45→20:36)
[2022-11-25] MEDS: ACETAMINOPHEN 500 MG TAB PO SCH ×4 (09:45→20:34)
[2022-11-25] MEDS: COLESTIPOL HCL 1 GM TAB PO SCH ×2 (09:46→21:22)
[2022-11-25] MEDS: METOPROLOL SUCC 50MG EXT REL TAB PO SCH (09:47)
[2022-11-25] MEDS: METOPROLOL SUCC 25MG EXT REL TAB PO SCH (10:06)
[2022-11-25] MEDS: amLODIPine BESYLATE 5 MG TAB PO SCH (10:06)
[2022-11-25] MEDS: PANTOprazole 40 MG in SYRINGE 0 ML IV SCH (10:35)
--- NOTE | 2022-11-25 10:51 | XRay Report ---
XR chest 1V portable CLINICAL HISTORY: Cough. COMPARISON STUDY: Chest radiograph November 20, 2022. FINDINGS: Lung volumes are normal. There are mild hazy bibasilar opacities. There is no pneumothorax or pleural effusion. Cardiac size is normal. Mediastinal contours are normal. There is no evidence fo r pulmonary edema. Degenerative changes of both shoulders are incidentally noted. IMPRESSION: Mild hazy bibasilar opacities. Atelectasis is favored although a developing infectious pr ocess could appear similar. ACT 112: Negative or not required by law. Electronically signed by: Conrado Mckeon M.D. 11/25/2022 10:49 AM
--- NOTE | 2022-11-25 14:36 | Hospitalist Progress Note ---
Date of Service November 25, 2022 Assessment & Plan (1) Fracture, intertrochanteric, right femur: (2) Fall: Plan Patient is an 87 yr old female who has significant past medical history of CAD with history of stent, HTN, HLD, history of renal artery stenosis, subclavian stenosis, GERD, CKD stage IIIb, senile osteoporosis who presents to ED after fall. Right Intertrochanteric femur fracture Secondary to Fall Possible age-related osteoporosis with current pathological fracture of intertrochanteric right femur S/P Right hip short cephalomedullary nailing for intertrochanteric femur fracture by on 11/21/22 Toe-touch weightbearing on the right leg Continue PT OT:Rehab Fall precautions On Xarelto for anticoagulation Appreciate orthopedics input Needs follow-up with orthopedics upon discharge Rehab when accepted Dysphagia Speech Therapy consulted Aspiration precautions IV fluids as needed Tolerating current diet Atelectasis CXR:Mild hazy bibasilar opacities. Atelectasis is favored although a developing infectious process could appear similar. Check procalcitonin Incentive spirometer Will consider antibiotics if needed Hypoglycemia Due to poor oral intake Placed on Hypoglycemia Protocol Monitor BGs Hypomagnesemia Replete electrolytes as needed Hypertensive urgency Likely situational secondary to pain Continue amlodipine Metoprolol dose increased to 100 mg daily Monitor BP CAD S/P Cardiac stent Reported renal artery stenosis, R subclavian stenosis Unknown pt compliance with medications Continue Home meds Cognitive deficits ? Underlying dementia but no formal diagnosis --CT head:No acute intracranial abnormality. Continue Mirtazapine Appreciate Psychiatry Input: Patient does not have decision-making capacity to refuse placement recommendations not to leave AMA as per psychiatry Continue melatonin to minimize delirium Avoid benzos, opiates, anticholinergics as able Delirium precautions COPD Former smoker not on inhalers, per family suppose to be on oxygen but pt/caregiver never obtained No signs and or symptoms of exacerbation Continue supplemental oxygen as needed CKD III Cr baseline 1.2 IV fluids as needed Monitor renal function Avoid nephrotoxic agents as able Collagenous Colitis continue sulfasalazine DVT Px: Xarelto Code Status DNI/DNR Disposition Rehab as able Admission and Anticipated Discharge Date Admission Date: November 20, 2022 Subjective Patient is seen and examined at bedside Poor historian secondary to dementia Less lethargic today Has minimal cough without expectoration Oral intake slowly improving Denies any significant pain at surgical site Review of Systems Review of Systems: All systems reviewed & are unremarkable except as noted in Subjective Physical Exam Physical Exam: Physical Exam: Vitals signs as noted above General Appearance:Moderately built and nourished, no apparent distress Head: normocephalic, Atraumatic Eyes: normal inspection, EOMI Neck: supple, Trachea midline Respiratory/Chest: Decreased breath sounds, CTA, No accessory muscle use Cardiovascular: S1, S2, + murmur Abdomen/GI:Soft, Non tender, Bowel sounds present Extremities/Musculoskeletal:normal inspection, no edema, R hip surgical site in dressing Neurologic/Psych:AAOX1, grossly no focal neurological deficits Skin: normal color, warm Results & Data Results & Data Vital Signs (Past 12 Hours) Vital Signs Temp Pulse Pulse Resp BP Pulse Ox O2 Del Method 11/25/22 12:01 36.4 C 68 16 101/57 L 93 Nasal Cannula 11/25/22 09:15 Nasal Cannula 11/25/22 08:09 36.3 C L 81 16 168/80 H 95 Nasal Cannula 11/25/22 07:41 78 11/25/22 03:00 36.5 C 83 18 200/79 H 93 Nasal Cannula O2 Flow Rate 11/25/22 12:01 1 11/25/22 09:15 2 11/25/22 08:09 1 11/25/22 07:41 11/25/22 03:00 2
[2022-11-25] MEDS: DOCUSATE SODIUM/SENNA 50/8.6MG TAB PO SCH (20:35)
[2022-11-25] MEDS: MIRTAZAPINE TAB 15 MG TAB PO SCH (20:35)
[2022-11-26] MEDS: ACETAMINOPHEN 325 MG TAB PO PRN (03:24)
[2022-11-26 07:39] LABS: Hematocrit (blood only) 35.7 % (37.0-47.0); Hemoglobin 11.4 g/dl (12.0-16.0); Mean Corpuscular Hemoglobin 28.6 pg (25.0-34.0); Mean Corpuscular Hgb Conc 31.9 g/dL (32.0-36.0); Mean Corpuscular Volume 89.5 fL (80.0-100.0); Mean Platelet Volume 10.1 fL (9.4-12.4); Platelet Count 245 K/uL (130-400); RDW Coefficient of Variation 13.5 % (11.5-14.5); RDW Standard Deviation 44.4 fL (36.4-46.3); Red Blood Count 3.99 M/uL (4.20-5.40); White Blood Count 5.27 K/ul (4.8-10.8)
[2022-11-26 07:52] LABS: Est GFR (African American) 50.6 ml/min; Potassium 4.4 mmol/L (3.5-5.1)
[2022-11-26 07:53] LABS: BUN Creatinine Ratio 20.4 (10-20); Calcium 8.8 mg/dl (8.6-10.3); Creatinine Clr Calc Pharmacy 25.1 ml/min; Est GFR (Non-African American) 43.7 ml/min; Magnesium 1.6 mg/dl (1.7-2.4)
[2022-11-26] MEDS: sulfaSALAzine 500 MG TABLET PO SCH ×2 (08:58→20:38)
[2022-11-26] MEDS: RIVAROXABAN 10 MG TABLET PO SCH (08:59)
[2022-11-26] MEDS: METOPROLOL SUCC 50MG EXT REL TAB PO SCH (08:59)
[2022-11-26] MEDS: amLODIPine BESYLATE 5 MG TAB PO SCH (08:59)
[2022-11-26] MEDS: ACETAMINOPHEN 500 MG TAB PO SCH ×4 (08:59→22:00)
[2022-11-26] MEDS: PANTOprazole 40 MG TAB PO SCH (08:59)
[2022-11-26] MEDS ORDERED: MAGNESIUM SULFATE / D5W 1 GM/100 ML BAG IV ONE (09:05)
[2022-11-26] MEDS: COLESTIPOL HCL 1 GM TAB PO SCH ×3 (10:42→20:40)
--- NOTE | 2022-11-26 13:00 | Hospitalist Progress Note ---
Date of Service November 26, 2022 Assessment & Plan (1) Fracture, intertrochanteric, right femur: (2) Fall: Plan Patient is an 87 yr old female who has significant past medical history of CAD with history of stent, HTN, HLD, history of renal artery stenosis, subclavian stenosis, GERD, CKD stage IIIb, senile osteoporosis who presents to ED after fall. Right Intertrochanteric femur fracture Secondary to Fall Possible age-related osteoporosis with current pathological fracture of intertrochanteric right femur S/P Right hip short cephalomedullary nailing for intertrochanteric femur fracture by on 11/21/22 Toe-touch weightbearing on the right leg Continue PT OT:Rehab Fall precautions On Xarelto for anticoagulation Appreciate orthopedics input Needs follow-up with orthopedics upon discharge Likely plan to be discharged to rehab facility tomorrow Dysphagia Speech Therapy consulted Continue aspiration precautions IV fluids as needed Tolerating current diet Atelectasis CXR:Mild hazy bibasilar opacities. Atelectasis is favored although a developing infectious process could appear similar. Normal procalcitonin Incentive spirometer Hypoglycemia Due to poor oral intake Placed on Hypoglycemia Protocol Monitor BGs Resolved Hypomagnesemia Replete electrolytes as needed Hypertensive urgency Likely situational secondary to pain Continue amlodipine Metoprolol dose increased to 100 mg daily Monitor BP Adjust medications as needed CAD S/P Cardiac stent Reported renal artery stenosis, R subclavian stenosis Unknown pt compliance with medications Continue Home meds Cognitive deficits ? Underlying dementia but no formal diagnosis --CT head:No acute intracranial abnormality. Continue Mirtazapine Appreciate Psychiatry Input: Patient does not have decision-making capacity to refuse placement recommendations not to leave AMA as per psychiatry Continue melatonin to minimize delirium Avoid benzos, opiates, anticholinergics as able Delirium precautions COPD Former smoker not on inhalers, per family suppose to be on oxygen but pt/caregiver never obtained No signs and or symptoms of exacerbation Continue supplemental oxygen as needed CKD III Cr baseline 1.2 IV fluids as needed Monitor renal function Avoid nephrotoxic agents as able Collagenous Colitis continue sulfasalazine DVT Px: Xarelto Code Status DNI/DNR Disposition Rehab when accepted Admission and Anticipated Discharge Date Admission Date: November 20, 2022 Subjective Patient is seen and examined at bedside Poor historian secondary to dementia Pleasantly confused during my encounter Offers no new complaints Waiting for rehab placement Had PT eval earlier today Denied any chest pain, dyspnea, dizziness, nausea, abdominal pain Review of Systems Review of Systems: All systems reviewed & are unremarkable except as noted in Subjective Physical Exam Physical Exam: Physical Exam: Vitals signs as noted above General Appearance:Moderately built and nourished, no apparent distress Head: normocephalic, Atraumatic Eyes: normal inspection, EOMI Neck: supple, Trachea midline Respiratory/Chest: Decreased breath sounds, CTA, No accessory muscle use Cardiovascular: S1, S2, + murmur Abdomen/GI:Soft, Non tender, Bowel sounds present Extremities/Musculoskeletal:normal inspection, no edema, R hip surgical site in dressing Neurologic/Psych:AAOX1, grossly no focal neurological deficits Skin: normal color, warm Results & Data Results & Data Vital Signs (Past 12 Hours) Vital Signs Temp Pulse Pulse Resp BP BP Pulse Ox 11/26/22 12:08 36.3 C L 88 20 181/91 H 96 11/26/22 08:02 36.5 C 72 16 162/70 H 93 11/26/22 03:16 36.7 C 72 18 164/76 H 93 11/26/22 02:37 68 11/26/22 02:37 O2 Del Method O2 Flow Rate 11/26/22 12:08 Room Air 11/26/22 08:02 Room Air 11/26/22 03:16 Nasal Cannula 2 11/26/22 02:37 11/26/22 02:37 Nasal Cannula 1 Laboratory Results Short CBC 11/26/22 Range/Units 07:08 WBC 5.27 (4.8-10.8) K/ul Hgb 11.4 L (12.0-16.0) g/dl Hct 35.7 L (37.0-47.0) % Plt Count 245 (130-400) K/uL BMP 11/26/22 07:08 Sodium 138 Potassium 4.4 Chloride 104 Carbon Dioxide 26 BUN 23 Creatinine 1.13 Glucose 72 Calcium 8.8
[2022-11-26] MEDS ORDERED: hydrALAZINE HCL 20 MG/ML VIAL IV PRN (13:01)
[2022-11-26] MEDS: DOCUSATE SODIUM/SENNA 50/8.6MG TAB PO SCH (20:37)
[2022-11-26] MEDS: MIRTAZAPINE TAB 15 MG TAB PO SCH (20:38)
[2022-11-26 21:19] LABS: Appearance Urine Clear (Clear); Bacteria Urine Automated Negative (Negative); Bilirubin Urine Negative (Negative); Blood Urine Negative (Negative); Color Urine Yellow; Glucose Urine UA Negative (Negative); Ketones Urine 1+ (Negative); Leukocyte Esterase Urine Negative (Negative); Nitrite Urine Negative (Negative); Protein Urine 1+ (Negative); RBC Urine Automated 0-4 /hpf (0-4); Urobilinogen Urine Negative (Negative); pH Urine 5.5 (4.5-7.5)
[2022-11-27] MEDS: ACETAMINOPHEN 325 MG TAB PO PRN (01:35)
[2022-11-27] MEDS: amLODIPine BESYLATE 5 MG TAB PO SCH (07:58)
[2022-11-27] MEDS: ACETAMINOPHEN 500 MG TAB PO SCH (07:58)
[2022-11-27] MEDS: METOPROLOL SUCC 50MG EXT REL TAB PO SCH (07:58)
[2022-11-27] MEDS: PANTOprazole 40 MG TAB PO SCH (07:58)
[2022-11-27] MEDS: sulfaSALAzine 500 MG TABLET PO SCH (07:58)
[2022-11-27] MEDS: COLESTIPOL HCL 1 GM TAB PO SCH (07:58)
[2022-11-27] MEDS: RIVAROXABAN 10 MG TABLET PO SCH (07:59)
[2022-11-27 08:27] LABS: Creatinine Clr Calc Pharmacy 22.9 ml/min; Est GFR (African American) 45.7 ml/min; Est GFR (Non-African American) 39.4 ml/min; Magnesium 2.1 mg/dl (1.7-2.4)
[2022-11-27] MEDS ORDERED: MAGNESIUM CHLORIDE W/CALCIUM 64MG DELAYED REL TAB PO SCH (09:00)
--- NOTE | 2022-11-27 11:08 | Discharge Summary ---
Date of Service November 27, 2022 Admission HPI Per Admitting Provider This is an 87-year-old female who has significant past medical history of CAD with history of stent, HTN, HLD, history of renal artery stenosis, subclavian stenosis, GERD, CKD stage IIIb, senile osteoporosis who presents to ED after fall. Daughter and granddaughter are at bedside. Patient has a 8 children. The daughter that she lives with is not at bedside. That daughter's name is Carmen. According to the daughter and granddaughter at bedside there is concerns about patient's living arrangements as she is not taking her medications and there is also concern about her safety. Per ED provider and family member at bedside the report is that she was walking down the stairs whenever she lost balance and fell on her right side. It is reported that she did not hit her head and that it is a witnessed fall. ROS unobtainable from patient as she does have underlying dementia. Patient was hospitalized in August due to a fall again and had a inferior and superior left pubic ramus fracture that required a short rehab stay. She was then discharged to home and she did have a hospital follow-up with her PCP. According to those notes there is also concern about patient's welfare as PCP made contact with [facility]. In ED patient was hemodynamically stable though she was significantly hypertensive with blood pressure 202/110. She did receive IV morphine as well as IV labetalol for attempted management. It is unsure if this is related to pain and/or medical noncompliance it is uncertain what she is taking. Patient also was to be on oxygen at home but does not utilize this and never obtained it. Admission Exam Per Admitting Provider "Please refer to Dr. Dye addendum for physical exam findings. PE: Gen: frail elderly appearing female. NAD. Head: NC AT Eyes: no icterus or conjunctival injection Nose: nares patent Mouth: dry Neck: trachea midline CV: RRR S1 S2 Pulm: CTA b/l anterior GI/abd: +BS, soft, NT, ND, no guarding MSK: muscle wasting Ext: no pretibial edema, peripheral pulses intact. RLE shortened and internally rotated. Neuro: alert, oriented x 2, grossly intact Psych: pleasant mood and affect Skin: visible skin is warm, dry, and without rash. Pt was not fully undressed for exam." Principal Diagnosis Fall, R femur fracture Discharge Exam General:No acute distress, resting comfortably Skin: No noted rashes or bruises Psych: Appropriate mood and affect HEENT: NC/AT CV: RRR, Normal s1, s2. No murmurs appreciated Resp: no increased effort of breathing Abdomen: Soft, nontender, nondistended. Extremities: No edema in lower extremities bilaterally. Discharge Data Allergies Allergy/AdvReac Type Severity Reaction Status Date / Time aspirin AdvReac Unknown Verified 11/20/22 14:40 Consultations 11/20/22 14:38 ED Decision to Admit Stat 11/20/22 14:44 Consult Orthopedic Surgery Routine 11/20/22 14:47 Consult Anesthesiology Routine 11/20/22 15:30 Consult Psychiatry Routine Procedures Performed Operation Date: 11/21/22 07:30 Actual Procedures p Right Hip Short Trochanteric Femoral Nail(Right) - Sony Ramos M.D. Ordered Studies 11/21/22 07:42 FL hip RT 2-3V Routine 11/24/22 10:56 CT head/brain wo con Urgent Hospital Course (1) Fracture, intertrochanteric, right femur: (2) Fall: Plan Patient is an 87 yr old female who has significant past medical history of CAD with history of stent, HTN, HLD, history of renal artery stenosis, subclavian stenosis, GERD, CKD stage IIIb, senile osteoporosis who presents to ED after fall. Right Intertrochanteric femur fracture Secondary to Fall at home Possible age-related osteoporosis with current pathological fracture of inte rtrochanteric right femur S/P Right hip short cephalomedullary nailing for intertrochanteric femur fracture by Dr. Ramos (orthopedics) on 11/21/22 Had PT/OT while hospitalized, discharged to acute rehab facility On Xarelto for anticoagulation Orthopedic follow up after discharge Dysphagia Speech Therapy consulted. Recommended the followin. Alternating solids and liquids 2. Keeping the head of your bed upright at all times as much as possible 3. That you sit upright with meals and for 30 minutes afterwards 4. Aspiration precautions- fully alert and upright, single bites/small sips/slow rate Continue aspiration precautions Atelectasis CXR:Mild hazy bibasilar opacities. Atelectasis is favored although a developing infectious process could appear similar. Normal procalcitonin Continue Incentive spirometer Hypertensive urgency Was likely situational secondary to pain Amlodipine dose increased to 5mg BID, Metoprolol dose increased to 100 mg daily Monitor BP Adjust medications as needed Cognitive deficits Possible underlying dementia but no formal diagnosis CT head:No acute intracranial abnormality. Continue Mirtazapine Psychiatry advised the following: "Patient does not have decision-making capacit y to refuse placement recommendations, not to leave AMA as per psychiatry Continue melatonin to minimize delirium Avoid benzos, opiates, anticholinergics as able Delirium precautions " COPD Former smoker not on inhalers, per family she is supposed to be on oxygen but pt/caregiver never obtained it. No signs and/or symptoms of exacerbation Continue supplemental oxygen as needed CKD III Cr baseline 1.2 IV fluids as needed Monitor renal function Avoid nephrotoxic agents as able Collagenous Colitis continue sulfasalazine Total Time Total Time Spent Total Time Spent (In Minutes): Greater than 30 mins Discharge Plan Discharge Items Patient Disposition: Transfer Shelter Fac Reason For Visit: R HIP FRACTURE Discharge Diagnosis: Right hip intertrochanteric femur fracture Activity: Per Instructions section Non-emergency contact: Surgeon Call non-emergency contact if: your pain is not controlled, your temperature is above 101.5, your wound has increased redness and your wound has increased drainage Follow-up/Referrals: Katelyn Orellana DO [Primary Care Provider] - Sony Ramos M.D. [Physician] - Diet: Other - See Diet Comment Diet Texture: Easy to Chew Diet Comment: Aspiration precautions (fully alert and upright, single bites/small sips) Addtl Attending Provider Instructions: Things to Watch Out For -Go to the Emergency Room if you have sudden onset of chest pain, shortness of breath, or uncontrollable pain. -Call the orthopedics clinic immediately if you have a sudden increase in the amount of wound drainage or the drainage becomes thick, yellow or green, or foul-smelling. -For routine questions regarding your hip surgery, call the orthopedics clinic at [phone] during regular business hours (8am-5pm). For urgent issues after regular business hours, you may call the clinic to be connected to the on-call physician. Dressings -Keep your dressings clean, dry, and in place for 4 days after surgery. After 4 days postoperatively, you may remove the dressing and cover the incisions with new clean dressings. Be sure to wash your hands thoroughly before touching your incisions. Apply a new dressing daily thereafter. -You may begin showering after your first dressing change (4 days after surgery). You may let the water run BRIEFLY over the incisions, but do not soak the incisions in the bathtub or pool for 2 weeks. You may also gently clean the incisions with mild soap and water; pat the incision dry after cleaning-do not rub the incisions. -You may use an antibiotic ointment (Bacitracin, Polysporin) if desired, but this is not necessary. Weight Bearing -You need to remain toe-touch weight bearing on your operative leg. You may rest the weight of your foot on the ground, but do not put any body weight through that leg. Use a walker for support and balance. Followup -You will need to follow-up with Dr. Ramos in orthopedic surgery clinic 10- 14 days after surgery. Please call [facility] at [phone] to make an appointment. Concerning your diet and meals, speech therapy recommends the followin. Alternating solids and liquids 2. Keeping the head of your bed upright at all times as much as possible 3. That you sit upright with meals and for 30 minutes afterwards 4. Aspiration precautions- fully alert and upright, single bites/small sips/slow rate Pending Studies at Discharge: No Stand-Alone Forms: My [facility] Skilled Items Patient informed of condition?: Yes DNR: Yes Discharge Level of Care: Acute rehab Communicable Disease: No Discharge Prognosis: Stable Lines: None Urinary Catheter: No Medications and DC Order Prescriptions: New metoprolol succinate 50 mg Tablet Extended Release 24 Hr 100 mg PO DAILY Qty: 60 0RF amlodipine [Norvasc] 5 mg Tablet 5 mg PO DAILY 30 Days Qty: 30 0RF Mag 64 64 mg Tablet,Delayed Release (Dr/Ec) 64 mg PO BID Qty: 60 0RF Xarelto 10 mg Tablet 10 mg PO DAILY 30 Days Qty: 30 0RF pantoprazole 40 mg Tablet,Delayed Release (Dr/Ec) 40 mg PO QAM 30 Days Qty: 30 0RF Continued sulfasalazine 500 mg tablet 500 mg PO BID colestipol 1 gram tablet 2 g PO BID mirtazapine 15 mg tablet 7.5 mg PO HS Discontinued omeprazole 20 mg capsule,delayed release(DR/EC) 20 mg PO DAILY Rx Instructions: TAKE THIS MEDICATION ONCE DAILY 30 TO 60 MINUTES BEFORE FIRST MEAL OF THE DAY hydrochlorothiazide 12.5 mg capsule 12.5 mg PO DAILY amlodipine 2.5 mg tablet 2.5 mg PO DAILY metoprolol succinate 25 mg tablet extended release 24 hr 75 mg PO DAILY Discharge Orders: Discharge Order (Routine); Ordered 11/27/22 Ordered By: Phoebe Arce Admission Data Admit Date/Time: 11/20/22 14:44 Attending Provider: Phoebe Arce Admit Provider: Carlyn Dye Primary Care Provider: Katelyn Orellana Other Providers: Carlyn Dye ; Sony Ramos ; Jeronimo Salvador ; Leti Mayfield ; Petra Mccloud ; Rm Hernandes ; [facility] ; Mike Salas Other Interventions: Discharge Summary Assessment (RN) Last Done: 11/27/22 15:52
== END 2022-11-27 15:53 | DRG 481 ==
LOC: ED 12:19 → SUATTDRO 14:44 → 2W 14:44

== ENCOUNTER 2025-03-09 12:12 | Inpatient (IN) ==
--- NOTE | 2025-03-09 12:42 | Emergency Department Note ---
Impression & Plan Adult failure to thrive, Acute cognitive decline ED Provider Note HISTORY OF PRESENT ILLNESS: Patient is an 89-year-old female presenting due to being found wandering. Patient has a history of dementia. She was reportedly wandering the hallway at her apartment complex. She reportedly lives with her daughter but there was no one around at her apartment when EMS arrived. Patient denies any complaints on arrival to the emergency department. EMS reports that the patient's living area is in disarray and expressed concern about patient's safety. Patient denies any recent falls or trauma. ROS: as above PHYSICAL EXAM: Constitutional: Patient appears in no acute distress. HENT: Head: Normocephalic and atraumatic. Eyes: EOMI, PERRL Mouth/Throat: Mucous membranes moist. Neck: Trachea midline. Neck supple. Cardiovascular: RRR, No murmurs, rubs or gallops. Intact distal pulses. Pulmonary/Chest: No respiratory distress. Breath sounds clear and equal bilaterally. No wheezes or rales. Abdominal: Abdomen soft, no tenderness, rebound or guarding. Musculoskeletal: No edema, tenderness or deformity noted. Skin: Warm and dry. No rash, erythema, pallor or cyanosis Psychiatric: Appropriate mood and affect for situation. Neurological: Alert and keenly responsive. CN II-XII grossly intact, moving all extremities equally and fully. MDM: - Vitals signs showed hypertension - History obtained via EMS, given patient's dementia. History as above. - Chronic conditions affecting care: CAD (s/p PCI); PVD; HTN; HLD; COPD; GERD; cognitive impairment - Differential diagnoses include, but are not limited to: UTI; pneumonia; dementia; electrolyte abnormality; ACS; CVA; intracranial hemorrhage - Order placed for continuous cardiac monitoring. At this time, monitor showed rate of 73 bpm with normal sinus rhythm, per my interpretation. - External medical records reviewed. Discharge summary dated 03/13/2023 was reviewed. Patient was admitted at that time secondary to acute metabolic encephalopathy. - EKG image interpreted by myself showed normal sinus rhythm. Rate 68 bpm. QT 398. No acute ischemic changes. - Laboratory workup interpreted by myself showed normal WBC; normal PT/INR; elevated creatinine; elevated anion gap (14); normal troponin; normal TSH; normal AST/ALT - Viral respiratory panel negative - CXR image reviewed and interpreted by myself as any for pneumonia, per my interpretation. - CT head without contrast negative for acute intracranial pathology. However, radiology notes there is a focal loss of manzo-white matter differentiation involving the high left frontal lobe concerning for potential subacute infarct. - Patient's daughter Megan presents to bedside. Reports significant concern about the patient's care in the outpatient setting, as patient lives with her other sibling. She is hopeful that the patient can be evaluated for placement at a potential longterm. - Discussion was had with egg caser about patient's case and need for admission - Hospitalist consulted for admission - Patient admitted to [facility] for further evaluation and management. ASSESSMENT AND PLAN: Diagnosis: Failure to thrive; acute cognitive decline Plan: Admit Past Med/Surg History Problem List (Updated 03/09/25 @ 14:58 by Sharifa Diaz MD) Acute cognitive decline (Acute) Adult failure to thrive (Acute) Major neurocognitive disorder Hypertension (Acute) Fracture, intertrochanteric, right femur (Acute) Fracture of superior ramus of left pubis Fracture of left inferior pubic ramus Stented coronary artery Fall (Acute) Fracture of multiple pubic rami (Acute) Ambulatory dysfunction (Acute) CKD (chronic kidney disease) (Acute) COPD (chronic obstructive pulmonary disease) (Chronic) CKD (chronic kidney disease), stage IV (Chronic) Cough PVD (peripheral vascular disease) (Chronic) Colitis (Chronic) COPD exacerbation (Acute) Hypoxia (Acute) Hyperlipidemia (Chronic) CAD (coronary artery disease) (Chronic) Medical History CAD (coronary artery disease) CKD (chronic kidney disease), stage IV Colitis COPD (chronic obstructive pulmonary disease) COPD exacerbation Cough Elevated troponin Hyperlipidemia Hypoxia PVD (peripheral vascular disease) Retroperitoneal hematoma Right flank pain Surgical History Stented coronary artery Family History Mother Cancer Social History Smoking Status: Former smoker Tobacco Type: Cigarettes Second Hand Exposure: Yes; Do You Dip or Chew Tobacco: No; Hx Alcohol Use: No Hx Substance Use: No Preferred Language: Turkish Communication Ability: Impaired [place] Trimmer Required: No Beliefs That Will Affect Care: None marital status: / Current Living Situation: Family Current Living Situation Comment: Evicted along with alcoholic daughter. Feels Safe at Home: Yes Assistive Devices: Oxygen - at Night and Walker Allergies Allergies Allergy/AdvReac Type Severity Reaction Status Date / Time aspirin AdvReac Unknown Verified 11/20/22 14:40 Home Meds Home Medications Medication Instructions Recorded Confirmed colestipol 1 gram tablet 2 g PO BID 11/10/19 03/09/25 sulfasalazine 500 mg tablet 500 mg PO BID 11/10/19 03/09/25 metoprolol succinate 100 mg 100 mg PO DAILY 03/09/23 03/09/25 tablet,extended release 24 hr hydralazine 25 mg tablet 25 mg PO TID 03/09/25 03/09/25 Previous Rx's Medication Instructions Recorded magnesium chloride 64 mg 64 mg PO BID #60 tabs 11/27/22 (magnesium chloride) tablet,delayed release (Mag 64) amlodipine 5 mg tablet 5 mg PO BID #60 tabs 03/13/23 thiamine HCl (vitamin B1) 100 mg 100 mg PO QAM #10 tabs 03/13/23 tablet Results & Data (ED) Vital Signs Vital Signs - 24 hr 03/09/25 12:15 03/09/25 12:27 03/09/25 13:18 Temperature 36.3 C L Temperature Source Oral Pulse Rate 77 Pulse Rate [Apical] 79 Respiratory Rate 18 18 Respiratory Effort / Characteristics Non-Labored Spontaneous Non-Labored Spontaneous Respiratory Depth Normal Normal Respiratory Pattern Regular Regular Blood Pressure 141/98 H Blood Pressure [Right Arm] 141/98 H Blood Pressure Mean 112 Blood Pressure Mean [Right Arm] 112 Pulse Oximetry 99 95 95 Oxygen Delivery Method Room Air Room Air Room Air Sepsis Recent Fever Within 48 Hours No Sepsis New/Unexplained Change in Mental Status N/A Sepsis Action Taken by Nursing No Action Required 03/09/25 13:30 Temperature Temperature Source Pulse Rate 73 Pulse Rate [Apical] Respiratory Rate Respiratory Effort / Characteristics Respiratory Depth Respiratory Pattern Blood Pressure Blood Pressure [Right Arm] Blood Pressure Mean Blood Pressure Mean [Right Arm] Pulse Oximetry Oxygen Delivery Method Sepsis Recent Fever Within 48 Hours Sepsis New/Unexplained Change in Mental Status Sepsis Action Taken by Nursing Laboratory Data 03/09/25 12:30 03/09/25 12:30 Lab Results 03/09/25 03/09/25 03/09/25 Range/Units 12:30 12:45 Unknown WBC 7.07 (4.8-10.8) K/ul RBC 4.18 L (4.20-5.40) M/uL Hgb 13.5 (12.0-16.0) g/dl Hct 41.7 (37.0-47.0) % MCV 99.8 (80.0-100.0) fL MCH 32.3 (25.0-34.0) pg MCHC 32.4 (32.0-36.0) g/dL RDW Std Deviation 51.8 H (36.4-46.3) fL RDW Coeff of Saulo 14.0 (11.5-14.5) % Plt Count 240 (130-400) K/uL MPV 11.2 (9.4-12.4) fL Immature Gran % (Auto) 0.7 % Neut % (Auto) 66.5 % Lymph % (Auto) 21.6 % Christian % (Auto) 9.8 % Eos % (Auto) 0.7 % Baso % (Auto) 0.7 % Neut # (Auto) 4.70 (1.40-6.50) K/uL Lymph # (Auto) 1.53 (1.20-3.40) K/uL Christian # (Auto) 0.69 H (0.11-0.59) K/uL Eos # (Auto) 0.05 (0.00-0.50) K/uL Baso # (Auto) 0.05 (0.00-0.20) K/uL Immature Gran # (Auto) 0.05 (0.01-0.20) K/uL PT 10.7 (9.0-12.0) Seconds INR 1.0 (0.9-1.1) Sodium 139 (136-145) mmol/L Potassium 4.2 (3.5-5.1) mmol/L Chloride 106 (98-107) mmol/L Carbon Dioxide 19 L (21-32) mmol/L Anion Gap 14 H (3-11) BUN 30 H (6-23) mg/dl Creatinine 1.44 H (0.6-1.2) mg/dl Est Cr Clr Drug Dosing 18.4 ml/min eGFR 34.77 BUN/Creatinine Ratio 20.8 H (10-20) Glucose 81 (70-99(Fasting)) mg/dl Lactate 1.3 (0.4-2.0) mmol/L Calcium 9.5 (8.6-10.3) mg/dl Magnesium 2.0 (1.7-2.4) mg/dl Total Bilirubin 0.7 (0.2-1.0) mg/dl AST 25 (13-39) U/L ALT 9 (7-52) U/L Alkaline Phosphatase 61 (34-104) U/L Troponin I High Sens 11.5 (0-14) pg/ml Total Protein 7.7 (6.0-8.3) gm/dl Albumin 4.3 (3.4-5.0) gm/dl Globulin 3.4 (2.5-4.0) gm/dl Albumin/Globulin Ratio 1.3 (0.9-2) TSH 2.060 (0.300-4.500) uIu/ml Adenovirus (PCR) Not Detected (NotDetected) B. pertussis DNA (PCR) Not Detected (NotDetected) B.parapertussis DNA PCR Not Detected (NotDetected) C. pneumoniae DNA (PCR) Not Detected (NotDetected) Coronavirus OC43 (PCR) Not Detected (NotDetected) Coronavirus HKU1 (PCR) Not Detected (NotDetected) Coronavirus 229E (PCR) Not Detected (NotDetected) SARS-CoV-2 (PCR) Not Detected (NotDetected) Coronavirus NL63 (PCR) Not Detected (NotDetected) Human Metapneumovir PCR Not Detected (NotDetected) Influenza Type A (PCR) Not Detected (NotDetected) Influenza Type B (PCR) Not Detected (NotDetected) M. pneumoniae (PCR) Not Detected (NotDetected) Parainfluenza 1 (PCR) Not Detected (NotDetected) Parainfluenza 2 (PCR) Not Detected (NotDetected) Parainfluenza 3 (PCR) Not Detected (NotDetected) Parainfluenza 4 (PCR) Not Detected (NotDetected) RSV (PCR) Not Detected (NotDetected) Entero/Rhino (PCR) Not Detected (NotDetected) Imaging Data Radiologist's Impression: Chest X-Ray 03/09/25 12:32 XR chest 1V portable CLINICAL HISTORY: weakness COMPARISON STUDY: 03/09/2023 FINDINGS: Heart size and pulmonary vasculature are normal. No consolidation or pleural effusion. Stable hyperexpanded lungs. IMPRESSION: No pneumonia seen. ACT 112: Negative or not required by law. Electronically signed by: Aldair Eaton M.D. 03/09/2025 12:[address] 03/09/25 12:32 CT SCAN OF THE BRAIN WITHOUT IV CONTRAST CLINICAL HISTORY: Change in mental status. COMPARISON STUDY: CT of the brain dated 03/09/2023 TECHNIQUE: Unenhanced axial CT scan of the brain is performed from the vertex to the skull base. Images are reviewed in the axial, sagittal, coronal planes. A dose lowering technique was utilized adhering to the principles of ALARA. CT DOSE: 547.75 mGy.cm FINDINGS: Brain parenchyma: There is focal loss of manzo-white matter differentiation identified involving the high left frontal lobe cortex seen on axial image #23. This is new from 03/09/2023. There is no hemorrhage or mass effect. There is age- related involutional change noting moderate subcortical and periventricular microangiopathic disease. There is a small chronic lacunar infarct in the right caudate head. No extra-axial fluid collection is seen. Ventricles, sulci, cisterns: Prominent secondary to involutional change. Intracranial vasculature: There is atherosclerotic calcification of the cavernous carotid and vertebral arteries. Calvarium: Unremarkable. Sinuses and mastoids: There is near opacification of the right sphenoid sinus. Thickening and sclerosis of the sinus wall indicates chronicity. The visualized paranasal sinuses are otherwise clear. There is a left mastoid effusion. The right mastoid air cells are well pneumatized. Cerumen is noted in the external auditory canals. Orbits: The bony orbits are grossly intact. IMPRESSION: 1. There is focal loss of manzo-white matter differentiation identified involving the high left frontal lobe cortex. This could represent a subacute or chronic infarct, and is new from the 03/09/2023 examination. Clinical correlation will be required. If warranted this could be further assessed with MRI. 2. No additional findings are suspicious for acute to subacute ischemia. 3. There is no hemorrhage or mass effect. ACT 112: Negative or not required by law. Electronically signed by: Sree Shin M.D. 03/09/2025 1:34 PM Discharge Plan Visit Data Chief Complaint: Weakness ED Provider: Sharifa Diaz Discharge Problem: Adult failure to thrive, Acute cognitive decline Condition: Fair Forms Stand Alone Forms: My [facility] Prescriptions Prescriptions: No Action sulfasalazine 500 mg tablet 500 mg PO BID colestipol 1 gram tablet 2 g PO BID magnesium chloride [Mag 64] 64 mg Tablet,Delayed Release (Dr/Ec) 64 mg PO BID Qty: 60 0RF metoprolol succinate 100 mg tablet extended release 24 hr 100 mg PO DAILY thiamine HCl (vitamin B1) 100 mg Tablet 100 mg PO QAM Qty: 10 0RF amlodipine 5 mg tablet 5 mg PO BID Qty: 60 0RF hydralazine 25 mg tablet 25 mg PO TID Referrals Referrals: Katelyn Orellana DO [Outside Practitioners] -
--- NOTE | 2025-03-09 12:47 | XRay Report ---
XR chest 1V portable CLINICAL HISTORY: weakness COMPARISON STUDY: 03/09/2023 FINDINGS: Heart size and pulmonary vasculature are normal. No consolidation or pleural effusion. Stab le hyperexpanded lungs. IMPRESSION: No pneumonia seen. ACT 112: Negative or not required by law. Electronically signed by: Aldair Eaton M.D. 03/09/2025 12:46 PM
[2025-03-09 13:13] LABS: Hematocrit (blood only) 41.7 % (37.0-47.0); Hemoglobin 13.5 g/dl (12.0-16.0); Immature Granulocytes # (auto) 0.05 K/uL (0.01-0.20); Immature Granulocytes % (auto) 0.7 %; Mean Corpuscular Hemoglobin 32.3 pg (25.0-34.0); Mean Corpuscular Volume 99.8 fL (80.0-100.0); Platelet Count 240 K/uL (130-400); RDW Standard Deviation 51.8 fL (36.4-46.3); Red Blood Count 4.18 M/uL (4.20-5.40); White Blood Count 7.07 K/ul (4.8-10.8)
--- NOTE | 2025-03-09 13:35 | CT Scan Report ---
CT SCAN OF THE BRAIN WITHOUT IV CONTRAST CLINICAL HISTORY: Change in mental status. COMPARISON STUDY: CT of the brain dated 03/09/2023 TECHNIQUE: Unenhanced axial CT scan of the brain is performed from the vertex to the skull base. Imag es are reviewed in the axial, sagittal, coronal planes. A dose lowering technique was utilized adheri ng to the principles of ALARA. CT DOSE: 547.75 mGy.cm FINDINGS: Brain parenchyma: There is focal loss of manzo-white matter differentiation identified involving the h igh left frontal lobe cortex seen on axial image #23. This is new from 03/09/2023. There is no hemorrh age or mass effect. There is age-related involutional change noting moderate subcortical and perivent ricular microangiopathic disease. There is a small chronic lacunar infarct in the right caudate head. No extra-axial fluid collection is seen. Ventricles, sulci, cisterns: Prominent secondary to involutional change. Intracranial vasculature: There is atherosclerotic calcification of the cavernous carotid and vertebr al arteries. Calvarium: Unremarkable. Sinuses and mastoids: There is near opacification of the right sphenoid sinus. Thickening and scleros is of the sinus wall indicates chronicity. The visualized paranasal sinuses are otherwise clear. Ther e is a left mastoid effusion. The right mastoid air cells are well pneumatized. Cerumen is noted in t he external auditory canals. Orbits: The bony orbits are grossly intact. IMPRESSION: 1. There is focal loss of manzo-white matter differentiation identified involving the high left fronta l lobe cortex. This could represent a subacute or chronic infarct, and is new from the 03/09/2023 exam ination. Clinical correlation will be required. If warranted this could be further assessed with MRI. 2. No additional findings are suspicious for acute to subacute ischemia. 3. There is no hemorrhage or mass effect. ACT 112: Negative or not required by law. Electronically signed by: Sree Shin M.D. 03/09/2025 1:34 PM
[2025-03-09 13:39] LABS: Alanine Aminotransferase 9.0 U/L (7-52); Albumin Globulin Ratio 1.3 (0.9-2); Albumin Level 4.3 gm/dl (3.4-5.0); Alkaline Phosphatase 61.0 U/L (34-104); Anion Gap 14.0 (3-11); Bilirubin,Total 0.7 mg/dl (0.2-1.0); Blood Urea Nitrogen 30.0 mg/dl (6-23); Calcium 9.5 mg/dl (8.6-10.3); Carbon Dioxide 19.0 mmol/L (21-32); Chloride 106.0 mmol/L (98-107); Creatinine Clr Calc Pharmacy 18.4 ml/min; Globulin 3.4 gm/dl (2.5-4.0); Glucose 81.0 mg/dl (70-99(Fasting)); Magnesium 2.0 mg/dl (1.7-2.4); Potassium 4.2 mmol/L (3.5-5.1); Sodium 139.0 mmol/L (136-145); Total Protein 7.7 gm/dl (6.0-8.3)
[2025-03-09 13:52] LABS: Thyroid Stimulating Hormone 2.06 uIu/ml (0.300-4.500)
[2025-03-09 13:55] LABS: INR 1.0 (0.9-1.1); Prothrombin Time 10.7 Seconds (9.0-12.0)
[2025-03-09 14:20] LABS: Chlamydia pneumoniae PCR Not Detected (NotDetected); Coronavirus 229E PCR Not Detected (NotDetected); Coronavirus CoV-2 (COVID19)PCR Not Detected (NotDetected); Coronavirus HKU1 PCR Not Detected (NotDetected); Coronavirus NL63 PCR Not Detected (NotDetected); Coronavirus OC43PCR Not Detected (NotDetected); Human Metapneumovirus PCR Not Detected (NotDetected); Parainfluenza Virus 1 PCR Not Detected (NotDetected); Parainfluenza Virus 2 PCR Not Detected (NotDetected); Parainfluenza Virus 3 PCR Not Detected (NotDetected); Parainfluenza Virus 4 PCR Not Detected (NotDetected); Respiratory Syncytial VirusPCR Not Detected (NotDetected); Rhinovirus/Enterovirus PCR Not Detected (NotDetected)
--- NOTE | 2025-03-09 15:09 | History & Physical Report ---
Date of Service March 09, 2025 Assessment & Plan (1) Acute cognitive decline: (2) Adult failure to thrive: (3) Major neurocognitive disorder: (4) Hypertension: (5) COPD (chronic obstructive pulmonary disease): (6) CKD (chronic kidney disease), stage IV: (7) Hypoxia: (8) Hyperlipidemia: (9) CAD (coronary artery disease): Plan The patient is a 89-year-old female who presented to the ED on 03/09/2025 with concerns of inability to take care of herself, found to have possible strokesubacute versus chronic Subacute versus chronic left frontal lobe stroke: Baseline history of severe dementia Noted on CT head, no deficits noted on exam Check head MRI, echo, if acute stroke, will need neuro consultation Hx severe dementia: Lives with her daughter, concerns the patient is not being well cared for Family interested in long-term placement/dementia unit PT/OT, case management consulted Hx HTN/HLD: Continue metoprolol/amlodipine/hydralazine/colestipol Malnutrition: Consult dietitian A total 45 minutes was spent on chart review/reviewing diagnostic data/facilitating plan of care/discussion with consultants DNR/DNI DVT prophylaxis: Lovenox History of Present Illness Chief Complaint: Confusion Primary Care Provider: NO PCP The patient is an 89-year-old female who presented to the ED on 03/09/2025 after a neighbor called 911 with concerns of the patient wandering around her apar tment complex more confused. The patient has a past medical history of dementia, HTN, COPD, CAD, CKD, HLD. The patient's daughter is at bedside. She lives with her daughter Carmen, who supposedly helps with her care. They are concerned that the patient is not being well taken care of at home. The patient's daughter Megan, at bedside, would like consideration of placement on discharge for proper care. On exam, the patient denies any complaints. ROS is difficult due to mentation. Patient denies any fever/chills/chest pain/shortness of breath/nausea/vomiting/diarrhea. Patient does report not taking her medications over the past few weeks. Labs on arrival to the ED remarkable for bicarb 19, anion gap 14, BUN 30, creatinine 1.44 Viral panel negative Chest x-ray negative Head CT showed: 1. There is focal loss of manzo-white matter differentiation identified involving the high left frontal lobe cortex. This could represent a subacute or chronic infarct, and is new from the 03/09/2023 examination. Clinical correlation will be required. If warranted this could be further assessed with MRI. 2. No additional findings are suspicious for acute to subacute ischemia. 3. There is no hemorrhage or mass effect. The patient will be admitted for further management of confusion and further workup of potential stroke Allergies Allergy/AdvReac Type Severity Reaction Status Date / Time aspirin AdvReac Unknown Verified 11/20/22 14:40 Home Medications Medication Instructions Recorded Confirmed Type colestipol 1 gram tablet 2 g PO BID 11/10/19 03/09/25 History sulfasalazine 500 mg tablet 500 mg PO BID 11/10/19 03/09/25 History magnesium chloride 64 mg 64 mg PO BID #60 tabs 11/27/22 03/09/25 Rx (magnesium chloride) tablet,delayed release (Mag 64) metoprolol succinate 100 mg 100 mg PO DAILY 03/09/23 03/09/25 History tablet,extended release 24 hr amlodipine 5 mg tablet 5 mg PO BID #60 tabs 03/13/23 03/09/25 Rx thiamine HCl (vitamin B1) 100 mg 100 mg PO QAM #10 tabs 03/13/23 03/09/25 Rx tablet hydralazine 25 mg tablet 25 mg PO TID 03/09/25 03/09/25 History Past Med/Surg History Problem List (Updated 03/09/25 @ 14:58 by Sharifa Diaz MD) Acute cognitive decline (Acute) Adult failure to thrive (Acute) Major neurocognitive disorder Hypertension (Acute) Fracture, intertrochanteric, right femur (Acute) Fracture of superior ramus of left pubis Fracture of left inferior pubic ramus Stented coronary artery Fall (Acute) Fracture of multiple pubic rami (Acute) Ambulatory dysfunction (Acute) CKD (chronic kidney disease) (Acute) COPD (chronic obstructive pulmonary disease) (Chronic) CKD (chronic kidney disease), stage IV (Chronic) Cough PVD (peripheral vascular disease) (Chronic) Colitis (Chronic) COPD exacerbation (Acute) Hypoxia (Acute) Hyperlipidemia (Chronic) CAD (coronary artery disease) (Chronic) Medical History CAD (coronary artery disease) CKD (chronic kidney disease), stage IV Colitis COPD (chronic obstructive pulmonary disease) COPD exacerbation Cough Elevated troponin Hyperlipidemia Hypoxia PVD (peripheral vascular disease) Retroperitoneal hematoma Right flank pain Surgical History Stented coronary artery Family History Mother Cancer Social History Smoking Status: Former smoker Tobacco Type: Cigarettes Second Hand Exposure: Yes; Do You Dip or Chew Tobacco: No; Hx Alcohol Use: No Hx Substance Use: No Preferred Language: Angolan Communication Ability: Impaired Mottler Machine Feeder Required: No Beliefs That Will Affect Care: None marital status: / Current Living Situation: Family Current Living Situation Comment: Evicted along with alcoholic daughter. Feels Safe at Home: Yes Assistive Devices: Oxygen - at Night and Walker Review of Systems Review of Systems: All systems reviewed & are unremarkable except as noted in HPI & below Physical Exam Physical Exam: See addendum Results & Data Results & Data Vital Signs (Past 12 Hours) Vital Signs Temp Pulse Pulse Resp BP BP Pulse Ox 03/09/25 13:30 73 03/09/25 13:18 95 03/09/25 12:27 79 18 141/98 H 95 03/09/25 12:15 36.3 C L 77 18 141/98 H 99 O2 Del Method 03/09/25 13:30 03/09/25 13:18 Room Air 03/09/25 12:27 Room Air 03/09/25 12:15 Room Air Laboratory Results Laboratory Results WBC 7.07 K/ul (4.8-10.8) 03/09/25 12:30 RBC 4.18 M/uL (4.20-5.40) L 03/09/25 12:30 Hgb 13.5 g/dl (12.0-16.0) 03/09/25 12:30 Hct 41.7 % (37.0-47.0) 03/09/25 12:30 MCV 99.8 fL (80.0-100.0) 03/09/25 12:30 MCH 32.3 pg (25.0-34.0) 03/09/25 12:30 MCHC 32.4 g/dL (32.0-36.0) 03/09/25 12:30 RDW Std Deviation 51.8 fL (36.4-46.3) H 03/09/25 12:30 RDW Coeff of Saulo 14.0 % (11.5-14.5) 03/09/25 12:30 Plt Count 240 K/uL (130-400) 03/09/25 12:30 MPV 11.2 fL (9.4-12.4) 03/09/25 12:30 Immature Gran % (Auto) 0.7 % 03/09/25 12:30 Neut % (Auto) 66.5 % 03/09/25 12:30 Lymph % (Auto) 21.6 % 03/09/25 12:30 Fallon % (Auto) 9.8 % 03/09/25 12:30 Eos % (Auto) 0.7 % 03/09/25 12:30 Baso % (Auto) 0.7 % 03/09/25 12:30 Neut # (Auto) 4.70 K/uL (1.40-6.50) 03/09/25 12:30 Lymph # (Auto) 1.53 K/uL (1.20-3.40) 03/09/25 12:30 Fallon # (Auto) 0.69 K/uL (0.11-0.59) H 03/09/25 12:30 Eos # (Auto) 0.05 K/uL (0.00-0.50) 03/09/25 12:30 Baso # (Auto) 0.05 K/uL (0.00-0.20) 03/09/25 12:30 Immature Gran # (Auto) 0.05 K/uL (0.01-0.20) 03/09/25 12:30 PT 10.7 Seconds (9.0-12.0) 03/09/25 12:30 INR 1.0 (0.9-1.1) 03/09/25 12:30 Sodium 139 mmol/L (136-145) 03/09/25 12:30 Potassium 4.2 mmol/L (3.5-5.1) 03/09/25 12:30 Chloride 106 mmol/L (98-107) 03/09/25 12:30 Carbon Dioxide 19 mmol/L (21-32) L 03/09/25 12:30 Anion Gap 14 (3-11) H 03/09/25 12:30 BUN 30 mg/dl (6-23) H 03/09/25 12:30 Creatinine 1.44 mg/dl (0.6-1.2) H 03/09/25 12:30 Est Cr Clr Drug Dosing 18.4 ml/min 03/09/25 12:30 eGFR 34.77 03/09/25 12:30 BUN/Creatinine Ratio 20.8 (10-20) H 03/09/25 12:30 Glucose 81 mg/dl (70-99(Fasting)) 03/09/25 12:30 Lactate 1.3 mmol/L (0.4-2.0) 03/09/25 12:45 Calcium 9.5 mg/dl (8.6-10.3) 03/09/25 12:30 Magnesium 2.0 mg/dl (1.7-2.4) 03/09/25 12:30 Total Bilirubin 0.7 mg/dl (0.2-1.0) 03/09/25 12:30 AST 25 U/L (13-39) 03/09/25 12:30 ALT 9 U/L (7-52) 03/09/25 12:30 Alkaline Phosphatase 61 U/L (34-104) 03/09/25 12:30 Troponin I High Sens 11.5 pg/ml (0-14) 03/09/25 12:30 Total Protein 7.7 gm/dl (6.0-8.3) 03/09/25 12:30 Albumin 4.3 gm/dl (3.4-5.0) 03/09/25 12:30 Globulin 3.4 gm/dl (2.5-4.0) 03/09/25 12:30 Albumin/Globulin Ratio 1.3 (0.9-2) 03/09/25 12:30 TSH 2.060 uIu/ml (0.300-4.500) 03/09/25 12:30 Adenovirus (PCR) Not Detected (NotDetected) 03/09/25 Unknown B. pertussis DNA (PCR) Not Detected (NotDetected) 03/09/25 Unknown B.parapertussis DNA PCR Not Detected (NotDetected) 03/09/25 Unknown C. pneumoniae DNA (PCR) Not Detected (NotDetected) 03/09/25 Unknown Coronavirus OC43 (PCR) Not Detected (NotDetected) 03/09/25 Unknown Coronavirus HKU1 (PCR) Not Detected (NotDetected) 03/09/25 Unknown Coronavirus 229E (PCR) Not Detected (NotDetected) 03/09/25 Unknown SARS-CoV-2 (PCR) Not Detected (NotDetected) 03/09/25 Unknown Coronavirus NL63 (PCR) Not Detected (NotDetected) 03/09/25 Unknown Human Metapneumovir PCR Not Detected (NotDetected) 03/09/25 Unknown Influenza Type A (PCR) Not Detected (NotDetected) 03/09/25 Unknown Influenza Type B (PCR) Not Detected (NotDetected) 03/09/25 Unknown M. pneumoniae (PCR) Not Detected (NotDetected) 03/09/25 Unknown Parainfluenza 1 (PCR) Not Detected (NotDetected) 03/09/25 Unknown Parainfluenza 2 (PCR) Not Detected (NotDetected) 03/09/25 Unknown Parainfluenza 3 (PCR) Not Detected (NotDetected) 03/09/25 Unknown Parainfluenza 4 (PCR) Not Detected (NotDetected) 03/09/25 Unknown RSV (PCR) Not Detected (NotDetected) 03/09/25 Unknown Entero/Rhino (PCR) Not Detected (NotDetected) 03/09/25 Unknown Impressions Chest X-Ray 03/09/25 12:32 XR chest 1V portable CLINICAL HISTORY: weakness COMPARISON STUDY: 03/09/2023 FINDINGS: Heart size and pulmonary vasculature are normal. No consolidation or pleural effusion. Stable hyperexpanded lungs. IMPRESSION: No pneumonia seen. ACT 112: Negative or not required by law. Electronically signed by: Aldair Eaton M.D. 03/09/2025 12:[address] 03/09/25 12:32 CT SCAN OF THE BRAIN WITHOUT IV CONTRAST CLINICAL HISTORY: Change in mental status. COMPARISON STUDY: CT of the brain dated 03/09/2023 TECHNIQUE: Unenhanced axial CT scan of the brain is performed from the vertex to the skull base. Images are reviewed in the axial, sagittal, coronal planes. A dose lowering technique was utilized adhering to the principles of ALARA. CT DOSE: 547.75 mGy.cm FINDINGS: Brain parenchyma: There is focal loss of manzo-white matter differentiation identified involving the high left frontal lobe cortex seen on axial image #23. This is new from 03/09/2023. There is no hemorrhage or mass effect. There is age- related involutional change noting moderate subcortical and periventricular microangiopathic disease. There is a small chronic lacunar infarct in the right caudate head. No extra-axial fluid collection is seen. Ventricles, sulci, cisterns: Prominent secondary to involutional change. Intracranial vasculature: There is atherosclerotic calcification of the cavernous carotid and vertebral arteries. Calvarium: Unremarkable. Sinuses and mastoids: There is near opacification of the right sphenoid sinus. Thickening and sclerosis of the sinus wall indicates chronicity. The visualized paranasal sinuses are otherwise clear. There is a left mastoid effusion. The right mastoid air cells are well pneumatized. Cerumen is noted in the external auditory canals. Orbits: The bony orbits are grossly intact. IMPRESSION: 1. There is focal loss of manzo-white matter differentiation identified involving the high left frontal lobe cortex. This could represent a subacute or chronic infarct, and is new from the 03/09/2023 examination. Clinical correlation will be required. If warranted this could be further assessed with MRI. 2. No additional findings are suspicious for acute to subacute ischemia. 3. There is no hemorrhage or mass effect. ACT 112: Negative or not required by law. Electronically signed by: rSee Shin M.D. 03/09/2025 1:34 PM Supervising Physician Co-Signing Physician Notes Brought in for wandering [place] with daughter Carmen Another daughter currently at bedside reports patient is not being taken care of by sister and wants her placed Patient has dementia. No reported acute changes or recent fall Uses a walker. Daughter concerned for her safety and not being cared for by other daughter and would like intermodal customer service placement in a dementia unit Patient currently denies any complaints General: Elderly thin woman in no distress Eyes: PERRL, conjunctivae normal, not pale, anicteric sclerae, EOM intact bilaterally ENMT: External ear and nose normal, oropharynx normal Respiratory: Not in resp distress, CTA b/l Cardiovascular: RRR S1 S2 Gastrointestinal (Abdomen): Abdomen is not distended, soft, non-tender, normal bowel sounds Musculoskeletal: No pedal edema Neurologic: Alert and oriented to person only cooperative. Moves extremities CT head notable for possible subacute or chronic infarct, new from 03/09/2023 Will get MRI brain for better assessment of CT findings If MRI confirms findings, do stroke workup PT/OT eval CM consult for placement Other plans as detailed by Camden OCHOA
[2025-03-09] MEDS: COLESTIPOL HCL 1 GM TAB PO SCH (21:54)
--- NOTE | 2025-03-09 23:41 | Magnetic Resonance Report ---
Exam(s): MRI HEAD Without Contrast EXAM: MR Head Without Intravenous Contrast CLINICAL HISTORY: cva. TECHNIQUE: Magnetic resonance images of the head/brain without intravenous contrast in multiple planes. COMPARISON: CT head without contrast performed earlier FINDINGS: Brain: There is an irregular area of diffusion restriction involving the high paramedian left parietal region adjacent to the falx. There is T2 FLAIR signal in the area of the ischemic changes. There are a few punctate areas of abnormal T2 signal in the deep cerebral white matter most consistent with mild small vessel ischemic/degenerative changes. The cerebral and cerebellar sulci are mildly prominent consistent with mild brain atrophy. No intracranial hemorrhage. No significant mass effect. Ventricles: Unremarkable. No ventriculomegaly. Bones/joints: Unremarkable. No acute fracture. Sinuses: Unremarkable as visualized. No acute sinusitis. Mastoid air cells: Unremarkable as visualized. No mastoid effusion. Orbits: Unremarkable as visualized. IMPRESSION: There is an irregular area of diffusion restriction involving the high paramedian left parietal region adjacent to the falx. Findings are consistent with an acute to subacute evolving ischemic process. No hemorrhagic transformation. Communications: Verify Receipt with Nurse Electronically signed by: Nestor Howard MD 03/09/25 23:40 PM
[2025-03-10 07:44] LABS: Appearance Urine Cloudy (Clear); Bacteria Urine Automated 2+ (None Seen); Epithelial Cell Urine Auto >20 /hpf (0-2); Glucose Urine UA Negative (Negative); RBC Urine Automated 0-2 /hpf (0-2)
[2025-03-10 07:45] LABS: Cast Urine Automated 0-2 /lpf (0-2)
[2025-03-10] MEDS: METOPROLOL SUCC 50MG EXT REL TAB PO SCH (07:52)
[2025-03-10] MEDS: THIAMINE HCL 100 MG TAB PO SCH (07:52)
[2025-03-10] MEDS: ACETAMINOPHEN 325 MG TAB PO PRN (07:56)
[2025-03-10] MEDS ORDERED: PHARMACIST DISCHARGE MED REC CONSULT PRN (07:57)
--- NOTE | 2025-03-10 08:45 | Electrocardiogram Report ---
Test Reason : Blood Pressure : */* mmHG Vent. Rate : 68 BPM Atrial Rate : 68 BPM P-R Int : 136 ms QRS Dur : 84 ms QT Int : 398 ms P-R-T Axes : 81 53 88 degrees QTcB Int : 423 ms Normal sinus rhythm Nonspecific ST and T wave abnormality Abnormal ECG When compared with ECG of 08-Mar-2023 22:13, Vent. rate has decreased by 45 bpm T wave inversion no longer evident in Lateral leads Confirmed by Mike Johnson ([id number]) on 03/10/2025 8:45:41 AM Referred By: REFERRED SELF Confirmed By: Mike Johnson
[2025-03-10 09:22] LABS: Cholesterol 234.0 mg/dl (0-200); HDL Cholesterol 41.0 mg/dl; Triglycerides 193.0 mg/dl (0-150)
[2025-03-10] MEDS: LACTATED RINGER'S 1,000 ML IV SCH (09:23)
[2025-03-10] MEDS: FOLIC ACID 1 MG TAB PO SCH (09:27)
[2025-03-10] MEDS: ATORVASTATIN 40 MG TAB PO SCH (09:28)
[2025-03-10 09:43] LABS: Hemoglobin A1C 4.2 % (4.5-5.6)
--- NOTE | 2025-03-10 10:44 | Neurology Consultation ---
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 Patient is symptomatic with right lower extremity drift although she is unable to tell me time of onset. - recommend clopidogrel 75 mg daily (patient has an aspirin allergy) - recommend atorvastatin 40 mg daily (LDL 154) - recommend CT angiogram head and neck - recommend transthoracic echocardiogram to rule out cardiac source of emboli I discussed my recommendations with Dr. Cesar Jacobo. Thank you for this consult. Please call with questions. Telehealth Consultation Telehealth Information Telehealth Information: I performed this visit using a real-time telehealth connection between my location and the patients location ([facility]). After connecting through interactive tele-video, patient was identified by name and date of and/or wristband check.Patient (or authorized healthcare telecommunications sales representative) was informed that this was a telemedicine visit and it was being conducted confidentially over secure lines. My office door was closed and no one else was present in the room with me.Patient (or authorized healthcare telecommunications sales representative) provided consent to proceed with the visit, expressed an understanding of privacy and security of the telemedicine visit, and gave permission to have a hospital telecommunications sales representative in the room in order to assist with the visit and to conduct portions of the visit, as needed. I informed the patient (or authorized healthcare telecommunications sales representative) that I reviewed their record and presented the opportunity for them to ask any questions regarding the visit today. The patient agreed to participate. History of Present Illness Reason for Consultation: high left parietal infarct Attending Physician: Cesar Jacobo MD History of Present Illness Shavonne Nickerson is an 89-year-old female with a past medical history of dementia, hypertension, hyperlipidemia, and malnutrition who presented to [facility] Emergency Department on 03/09/2025 with failure to thrive. She was found on MRI to have a high left parietal infarct. LDL 154. She is symptomatic with right lower extremity drift. Patient is hard of hearing with history of dementia so history was obtained from chart review. Bedside RN was able to help me speak to patient at bedside and helped perform the physical exam. Allergies Allergy/AdvReac Type Severity Reaction Status Date / Time aspirin AdvReac Unknown Verified 11/20/22 14:40 Home Medications Medication Instructions Recorded Confirmed Type colestipol 1 gram tablet 2 g PO BID 11/10/19 03/09/25 History sulfasalazine 500 mg tablet 500 mg PO BID 11/10/19 03/09/25 History magnesium chloride 64 mg 64 mg PO BID #60 tabs 11/27/22 03/09/25 Rx (magnesium chloride) tablet,delayed release (Mag 64) metoprolol succinate 100 mg 100 mg PO DAILY 03/09/23 03/09/25 History tablet,extended release 24 hr amlodipine 5 mg tablet 5 mg PO BID #60 tabs 03/13/23 03/09/25 Rx thiamine HCl (vitamin B1) 100 mg 100 mg PO QAM #10 tabs 03/13/23 03/09/25 Rx tablet hydralazine 25 mg tablet 25 mg PO TID 03/09/25 03/09/25 History Patient History Medical History CAD (coronary artery disease) CKD (chronic kidney disease), stage IV Colitis COPD (chronic obstructive pulmonary disease) COPD exacerbation Cough Elevated troponin Hyperlipidemia Hypoxia PVD (peripheral vascular disease) Retroperitoneal hematoma Right flank pain Surgical History Stented coronary artery Family History Mother Cancer Social History Smoking Status: Former smoker Tobacco Type: Cigarettes Second Hand Exposure: Yes; Do You Dip or Chew Tobacco: No; Hx Alcohol Use: No Hx Substance Use: No Preferred Language: Palestinian Communication Ability: Effective Dependency Case Manager Required: No Beliefs That Will Affect Care: None marital status: / Current Living Situation: Family Current Living Situation Comment: lives with daughter in an apartment Other Information That Helps Us Care for You: No Feels Safe at Home: Yes Safety Concerns: Feels Safe At This Time Assistive Devices: None Review of Systems ROS reviewed and negative except as above. Physical Exam NEUROLOGIC EXAMINATION: Performed with the help with the bedside RN Mental Status: alert, oriented to person only Cranial Nerves: CN 2 - no visual defect on confrontation CN 3, 4, 6 - extra-ocular movements intact and no nystagmus CN 5 - facial sensation intact CN 7 - no facial asymmetry CN 8 - poor hearing CN 9, 10 - palate symmetric, normal gag CN 11 - good shoulder shrug CN 12 - tongue midline MOTOR: Strength was at least antigravity throughout, Pronator drift was present in the right lower extremity. There were no abnormal movements SENSATION: intact and symmetric to light touch GAIT: not assessed REFLEXES: not assessed NIH Stroke Scale: 1a. Level of Consciousness: alert = 0 1b. LOC Questions: (month, age): both correct = 0 1c. LOC Commands (open and close eyes, make fist and let go using non-paretic hand): obeys both correctly = 0 2. Best Gaze (eyes open and patient follows examiner's finger or face): normal = 0 3. Visual (visual threat or finger counting in each quadrant): no loss = 0 4. Facial Palsy (show teeth, raise eye brows and squeeze eyes shut, or grimace symmetry in a comatose patient): normal = 0 5a. Motor Arm (extend arm (palms down) to 90 degrees and score drift/movement (10 seconds) - Left: no drift = 0 5b. Motor Arm: (extend arm (palms down) to 90 degrees and score drift/movement (10 seconds) - Right: no drift = 0 6a. Motor Leg (elevate leg 30 degrees and score drift/ movement (5 seconds) - Left: no drift = 0 6b. Motor Leg (elevate leg 30 degrees and score drift/ movement (5 seconds) - Right: no drift = 1 7. Limb Ataxia (finger to nose, heel down rhodes): absent = 0 8. Sensory (pin prick to face, arm, trunk and leg, compare side to side): normal = 0 9. Best Language: no aphasia = 0 10. Dysarthria (evaluate speech clarity by patient repeating listed words): normal articulation = 0 11. Extinction and Inattention: no neglect = 0 Total: 1 Results & Data Vital Signs (Past 12 Hours) Vital Signs Temp Pulse Resp BP Pulse Ox O2 Del Method 03/10/25 08:01 36.6 C 88 16 149/75 H 92 Room Air 03/10/25 07:58 36.4 C L 90 18 142/72 H 92 Room Air 03/10/25 04:20 36.6 C 80 14 157/67 H 92 Room Air 03/10/25 00:02 36.4 C L 73 14 154/73 H 93 Room Air Laboratory Results 03/10/25 06:40 Urine Culture - Pending Urine,Clean Catch 03/10/25 03/10/25 03/09/25 08:37 06:40 Unknown WBC RBC Hgb Hct MCV MCH MCHC RDW Std Deviation RDW Coeff of Saulo Plt Count MPV Immature Gran % (Auto) Neut % (Auto) Lymph % (Auto) Schleicher % (Auto) Eos % (Auto) Baso % (Auto) Neut # (Auto) Lymph # (Auto) Schleicher # (Auto) Eos # (Auto) Baso # (Auto) Immature Gran # (Auto) PT INR Sodium Potassium Chloride Carbon Dioxide Anion Gap BUN Creatinine Est Cr Clr Drug Dosing eGFR BUN/Creatinine Ratio Glucose Estimat Average Glucose 74 Hemoglobin A1c 4.2 L Lactate Calcium Magnesium Total Bilirubin AST ALT Alkaline Phosphatase Troponin I High Sens Total Protein Albumin Globulin Albumin/Globulin Ratio Triglycerides 193 H Cholesterol 234 H LDL Cholesterol, Calc 154 VLDL Cholesterol, Calc 39 H HDL Cholesterol 41 Cholesterol/HDL Ratio 5.7 H Vitamin B12 168 L TSH Urine Color Yellow Urine Appearance Cloudy A Urine pH 5.5 Ur Specific Bellflower 1.022 Urine Protein 2+ H Urine Glucose (UA) Negative Urine Ketones 1+ H Urine Blood Negative Urine Nitrite Negative Urine Bilirubin Negative Urine Urobilinogen Negative Ur Leukocyte Esterase Trace H Urine WBC (Auto) 11-20 H Urine RBC (Auto) 0-2 U Hyaline Cast (Auto) 0-2 U Epithel Cells (Auto) >20 H Urine Bacteria (Auto) 2+ H Urine Comment Adenovirus (PCR) Not Detected B. pertussis DNA (PCR) Not Detected B.parapertussis DNA PCR Not Detected C. pneumoniae DNA (PCR) Not Detected Coronavirus OC43 (PCR) Not Detected Coronavirus HKU1 (PCR) Not Detected Coronavirus 229E (PCR) Not Detected SARS-CoV-2 (PCR) Not Detected Coronavirus NL63 (PCR) Not Detected Human Metapneumovir PCR Not Detected Influenza Type A (PCR) Not Detected Influenza Type B (PCR) Not Detected M. pneumoniae (PCR) Not Detected Parainfluenza 1 (PCR) Not Detected Parainfluenza 2 (PCR) Not Detected Parainfluenza 3 (PCR) Not Detected Parainfluenza 4 (PCR) Not Detected RSV (PCR) Not Detected Entero/Rhino (PCR) Not Detected 03/09/25 03/09/25 12:45 12:30 WBC 7.07 RBC 4.18 L Hgb 13.5 Hct 41.7 MCV 99.8 MCH 32.3 MCHC 32.4 RDW Std Deviation 51.8 H RDW Coeff of Saulo 14.0 Plt Count 240 MPV 11.2 Immature Gran % (Auto) 0.7 Neut % (Auto) 66.5 Lymph % (Auto) 21.6 Schleicher % (Auto) 9.8 Eos % (Auto) 0.7 Baso % (Auto) 0.7 Neut # (Auto) 4.70 Lymph # (Auto) 1.53 Schleicher # (Auto) 0.69 H Eos # (Auto) 0.05 Baso # (Auto) 0.05 Immature Gran # (Auto) 0.05 PT 10.7 INR 1.0 Sodium 139 Potassium 4.2 Chloride 106 Carbon Dioxide 19 L Anion Gap 14 H BUN 30 H Creatinine 1.44 H Est Cr Clr Drug Dosing 18.4 eGFR 34.77 BUN/Creatinine Ratio 20.8 H Glucose 81 Estimat Average Glucose Hemoglobin A1c Lactate 1.3 Calcium 9.5 Magnesium 2.0 Total Bilirubin 0.7 AST 25 ALT 9 Alkaline Phosphatase 61 Troponin I High Sens 11.5 Total Protein 7.7 Albumin 4.3 Globulin 3.4 Albumin/Globulin Ratio 1.3 Triglycerides Cholesterol LDL Cholesterol, Calc VLDL Cholesterol, Calc HDL Cholesterol Cholesterol/HDL Ratio Vitamin B12 TSH 2.060 Urine Color Urine Appearance Urine pH Ur Specific Bellflower Urine Protein Urine Glucose (UA) Urine Ketones Urine Blood Urine Nitrite Urine Bilirubin Urine Urobilinogen Ur Leukocyte Esterase Urine WBC (Auto) Urine RBC (Auto) U Hyaline Cast (Auto) U Epithel Cells (Auto) Urine Bacteria (Auto) Urine Comment Adenovirus (PCR) B. pertussis DNA (PCR) B.parapertussis DNA PCR C. pneumoniae DNA (PCR) Coronavirus OC43 (PCR) Coronavirus HKU1 (PCR) Coronavirus 229E (PCR) SARS-CoV-2 (PCR) Coronavirus NL63 (PCR) Human Metapneumovir PCR Influenza Type A (PCR) Influenza Type B (PCR) M. pneumoniae (PCR) Parainfluenza 1 (PCR) Parainfluenza 2 (PCR) Parainfluenza 3 (PCR) Parainfluenza 4 (PCR) RSV (PCR) Entero/Rhino (PCR) Diagnostic Findings Head CT 03/09/25 12:32 CLINICAL HISTORY: Change in mental status. IMPRESSION: 1. There is focal loss of manzo-white matter differentiation identified involving the high left frontal lobe cortex. This could represent a subacute or chronic infarct, and is new from the 03/09/2023 examination. Clinical correlation will be required. If warranted this could be further assessed with MRI. 2. No additional findings are suspicious for acute to subacute ischemia. 3. There is no hemorrhage or mass effect. Electronically signed by: Sree Shin M.D. 03/09/2025 1:34 PM Brain MRI 03/09/25 16:50 CLINICAL HISTORY: cva. IMPRESSION: There is an irregular area of diffusion restriction involving the high paramedian left parietal region adjacent to the falx. Findings are consistent with an acute to subacute evolving ischemic process. No hemorrhagic transformation. Electronically signed by: Nestor Howard MD 03/09/25 23:40 PM Medications Administered Home Medications Medication Instructions Recorded Confirmed Last Taken colestipol 1 gram tablet 2 g PO BID 11/10/19 03/09/25 01/27/21 sulfasalazine 500 mg tablet 500 mg PO BID 11/10/19 03/09/25 01/27/21 magnesium chloride 64 mg 64 mg PO BID #60 tabs 11/27/22 03/09/25 Unknown (magnesium chloride) tablet,delayed release (Mag 64) metoprolol succinate 100 mg 100 mg PO DAILY 03/09/23 03/09/25 Unknown tablet,extended release 24 hr amlodipine 5 mg tablet 5 mg PO BID #60 tabs 03/13/23 03/09/25 Unknown thiamine HCl (vitamin B1) 100 mg 100 mg PO QAM #10 tabs 03/13/23 03/09/25 Unknown tablet hydralazine 25 mg tablet 25 mg PO TID 03/09/25 03/09/25 Unknown Active Medications Generic Name Dose Route Start Last Admin Trade Name Freq PRN Reason Stop Dose Admin Acetaminophen 650 mg 03/09/25 16:50 03/10/25 07:56 Acetaminophen 325 Mg Tab PO 04/08/25 16:49 650 mg Q4H PRN Administration pain/fever Atorvastatin Calcium 40 mg 03/10/25 09:00 03/10/25 09:28 Atorvastatin 40 Mg Tab PO 04/09/25 08:59 40 mg QAM ALEJANDRO Administration Colestipol HCl 2 gm 03/09/25 21:00 03/10/25 07:53 Colestipol Hcl 1 Gm Tab PO 04/08/25 20:59 2 gm BID ALEJANRDO Administration Folic Acid 1 mg 03/10/25 09:00 03/10/25 09:27 Folic Acid 1 Mg Tab PO 04/09/25 08:59 1 mg QAM ALEJANDRO Administration Lactated Ringer's 1,000 mls @ 80 mls/hr 03/10/25 08:00 03/10/25 09:23 Lr IV 03/11/25 00:00 80 mls/hr .[id number] ALEJANDRO Administration Metoprolol Succinate 100 mg 03/10/25 09:00 03/10/25 07:52 Metoprolol Succ 50mg Ext Rel Tab PO 04/09/25 08:59 100 mg DAILY ALEJANDRO Administration Sulfasalazine 500 mg 03/09/25 21:00 03/10/25 07:52 Sulfasalazine 500 Mg Tablet PO 04/08/25 20:59 500 mg BID ALEJANDRO Administration Thiamine HCl 100 mg 03/10/25 09:00 03/10/25 07:52 Thiamine Hcl 100 Mg Tab PO 04/09/25 08:59 100 mg QAM ALEJANDRO Administration
--- NOTE | 2025-03-10 13:02 | Hospitalist Progress Note ---
Date of Service March 10, 2025 Assessment & Plan (1) Acute cognitive decline: (2) Adult failure to thrive: (3) Major neurocognitive disorder: (4) Hypertension: (5) COPD (chronic obstructive pulmonary disease): (6) CKD (chronic kidney disease), stage IV: (7) Hypoxia: (8) Hyperlipidemia: (9) CAD (coronary artery disease): Plan The patient is a 89-year-old female who presented to the ED on 03/09/2025 with concerns of inability to take care of herself, found to have possible strokesubacute versus chronic Acute versus Subacute Left Parietal Lobe Stroke: Baseline history of severe dementia Noted on CT head, no deficits noted on exam - MR head revealing high left parietal acute vs. subacute infarct Plan: -neurology consulted, recommended head/neck angios and echo -start plavix 75mg daily (aspirin allergy) -start atorvastatin 40mg daily -check echo -PT/OT/speech, stroke order set ordered Hx severe dementia: Lives with her daughter, concerns the patient is not being well cared for Family interested in long-term placement/dementia unit Hx HTN/HLD: Continue metoprolol/amlodipine/hydralazine/colestipol Malnutrition: Consult dietitian I spent a total of 50 minutes in direct patient care, including [id number] time with the patient and/or family, reviewing medical records, ordering and reviewing diagnostic tests, and coordinating care with other healthcare providers. This time includes: history taking, physical examination, medical decision making, counseling, ECG interpretation, imaging interpretation, lab interpretation, orders, and education, excluding time spent in the performance of separately billed services. Admission and Anticipated Discharge Date Admission Date: March 09, 2025 Subjective Patient seen and examined at bedside. Patient veyr pleasant this morning. Denies any symptoms and wants to go home. Very forgetful. Review of Systems Review of Systems: CONSTITUTIONAL: Patient denies fevers, chills, sweats and weight changes. EYES: Patient denies any visual symptoms. EARS, NOSE, AND THROAT: No difficulties with hearing. No symptoms of rhinitis or sore throat. CARDIOVASCULAR: Patient denies chest pains, palpitations, orthopnea and paroxysmal nocturnal dyspnea. RESPIRATORY: No dyspnea on exertion, no wheezing or cough. GI: No nausea, vomiting, diarrhea, constipation, abdominal pain, hematochezia or melena. : No urinary hesitancy or dribbling. No nocturia or urinary frequency. No abnormal urethral discharge. MUSCULOSKELETAL: No myalgias or arthralgias. NEUROLOGIC: No chronic headaches, no seizures. Patient denies numbness, tingling or weakness. PSYCHIATRIC: Patient denies problems with mood disturbance. No problems with anxiety. ENDOCRINE: No excessive urination or excessive thirst. DERMATOLOGIC: Patient denies any rashes or skin changes. Physical Exam Physical Exam: Gen: A&O 2 NAD HEENT: NCAT, EOMI, not icteric. External ears normal. No rhinorrhea. Moist mucous membranes. Neck: Supple, full range of motion, no observable masses, No meningeal sign. Lungs: No Respiratory distress. CV: RRR, no edema. Abdomen: Soft, nondistended, No rebound tenderness. MSK: No joint swelling, no redness. Skin: No rashes, petechiae, lesions. Normal color per patient. Neuro: NIHSS of 3 points for right leg drift/hits bed, right arm drift, otherwise unremrakble other thandementia Psych: Appropriate for situation. Results & Data Results & Data Vital Signs (Past 12 Hours) Vital Signs Temp Pulse Pulse Resp BP Pulse Ox O2 Del Method 03/10/25 11:43 36.6 C 75 16 147/68 H 92 Room Air 03/10/25 08:01 36.6 C 88 16 149/75 H 92 Room Air 03/10/25 08:00 83 03/10/25 07:58 Room Air 03/10/25 07:58 36.4 C L 90 18 142/72 H 92 Room Air 03/10/25 04:20 36.6 C 80 14 157/67 H 92 Room Air Laboratory Results -personally reviewed, B12 of 168 which is being replenished Medications Administered Acetaminophen (Acetaminophen 325 Mg Tab) 650 mg PO Q4H PRN PRN Reason: pain/fever Stop: 04/08/25 16:49 Last Admin: 03/10/25 07:56 Dose: 650 mg Documented By: nicolette Atorvastatin Calcium (Atorvastatin 40 Mg Tab) 40 mg PO QAM ALEJANDRO Stop: 04/09/25 08:59 Last Admin: 03/10/25 09:28 Dose: 40 mg Documented By: nicolette Colestipol HCl (Colestipol Hcl 1 Gm Tab) 2 gm PO BID ALEJANDRO Stop: 04/08/25 20:59 Last Admin: 03/10/25 07:53 Dose: 2 gm Documented By: nicolette Admin: 03/09/25 21:54 Dose: 2 gm Documented By: UNIQEU Folic Acid (Folic Acid 1 Mg Tab) 1 mg PO QAM ALEJANDRO Stop: 04/09/25 08:59 Last Admin: 03/10/25 09:27 Dose: 1 mg Documented By: nicolette Lactated Ringer's (Lr) 1,000 mls @ 80 mls/hr IV .[id number] ALEJANDRO Stop: 03/11/25 00:00 Last Admin: 03/10/25 09:23 Dose: 80 mls/hr Documented By: nicolette Metoprolol Succinate (Metoprolol Succ 50mg Ext Rel Tab) 100 mg PO DAILY [facility] Stop: 04/09/25 08:59 Last Admin: 03/10/25 07:52 Dose: 100 mg Documented By: nicolette Sulfasalazine (Sulfasalazine 500 Mg Tablet) 500 mg PO BID ALEJANDRO Stop: 04/08/25 20:59 Last Admin: 03/10/25 07:52 Dose: 500 mg Documented By: nicolette Admin: 03/09/25 20:42 Dose: 500 mg Documented By: UNIQUE Thiamine HCl (Thiamine Hcl 100 Mg Tab) 100 mg PO QAM [facility] Stop: 04/09/25 08:59 Last Admin: 03/10/25 07:52 Dose: 100 mg Documented By: nicolette
--- NOTE | 2025-03-10 13:48 | XCELERA ---
[id number]
[2025-03-10] MEDS: OPTIRAY 320 125ml IV ONE (14:02)
[2025-03-10] MEDS: CYANOCOBALAMIN 1000 MCG/ML VIAL IM ONE (14:14)
[2025-03-10] MEDS: CLOPIDOGREL BISULFATE 75 MG TAB PO ONE (14:14)
--- NOTE | 2025-03-10 14:40 | CT Scan Report ---
EXAM: CT Angiography Neck With Intravenous Contrast INDICATION: Stroke TECHNIQUE: Routine carotid CT angiography protocol was performed with intravenous contrast. NASCET criteria using the distal ICAs for comparison were used for evaluation of stenoses. Sagittal and coronal reformatted images were created and reviewed. This CT exam was performed using one or more of the following dose reduction techniques: automated exposure control, adjustment of the mA and/or kV according to patient size, and/or use of iterative reconstruction technique. MIP reconstructed images were created and reviewed. CONTRAST: 94 ml of Optiray 320 was administered intravenously. COMPARISON: None. FINDINGS: VASCULATURE: Right common carotid artery: Scattered calcific plaque d. No occlusion or significant stenosis. No dissection. Right internal carotid artery: There is moderate to marked atherosclerosis with occlusion of the proximal 6 mm of the extracranial segment. There is reconstitution and otherwise patent.. No dissection. Right external carotid artery: No abnormality noted. No occlusion. Right vertebral artery: No abnormality noted. No occlusion or significant stenosis. No dissection. Left common carotid artery: Scattered calcific plaque. No occlusion or significant stenosis. No dissection. Left internal carotid artery: There is moderate plaque left bulb with focal stenosis of up to 80% at the bulb. No dissection. Left external carotid artery: No abnormality noted. No occlusion. Left vertebral artery: No abnormality noted. No occlusion or significant stenosis. No dissection. NECK: Bones/joints: No acute or atypical chronic changes. Soft tissues: No abnormality noted. Lung apices: Clear. Thyroid: Innumerable subcentimeter nodules present. CAROTID STENOSIS REFERENCE USING NASCET CRITERIA: % ICA stenosis = (1 - narrowest ICA diameter/diameter of distal cervical ICA) x 100. Mild - <50% stenosis. Moderate - 50-69% stenosis. Severe - 70-94% stenosis. Near occlusion - 95-99% stenosis. Occluded - 100% stenosis. IMPRESSION: 1. There is occlusion of the proximal 6 mm of the right cervical internal carotid artery with reconstitution. 2. Up to 80% stenosis of the left cervical internal carotid bulb. Critical results reported by phone to Dr. Kaur at 2:39 PM 03/10/2025 ACT 112: N/A Electronically signed by Iza Elizondo 03-10-2025 2:39 PM
--- NOTE | 2025-03-10 14:41 | CT Scan Report ---
EXAM: CT Angiography Head With Intravenous Contrast INDICATION: Stroke TECHNIQUE: Axial computed tomographic angiography images of the head with intravenous contrast. Sagittal and coronal reformatted images were created and reviewed. This CT exam was performed using one or more of the following dose reduction techniques: automated exposure control, adjustment of the mA and/or kV according to patient size, and/or use of iterative reconstruction technique. MIP reconstructed images were created and reviewed. CONTRAST: 94 ml of Optiray 320 was administered intravenously. COMPARISON: CT head 03/09/2023. No more recent studies provided. FINDINGS: Right internal carotid artery: Atherosclerotic plaque noted. Intracranial segment is patent with no significant stenosis. No aneurysm. Right anterior cerebral artery: No abnormality noted. No occlusion or significant stenosis. No aneurysm. Right middle cerebral artery: No abnormality noted. No occlusion or significant stenosis. No aneurysm. Right posterior cerebral artery: No abnormality noted. No occlusion or significant stenosis. No aneurysm. Right vertebral artery: No significant abnormality noted. Left internal carotid artery: Atherosclerotic plaque noted. Intracranial segment is patent with no significant stenosis. No aneurysm. Left anterior cerebral artery: No abnormality noted. No occlusion or significant stenosis. No aneurysm. Left middle cerebral artery: No abnormality noted. No occlusion or significant stenosis. No aneurysm. Left posterior cerebral artery: No abnormality noted. No occlusion or significant stenosis. No aneurysm. Left vertebral artery: No significant abnormality noted. Basilar artery: No abnormality noted. No occlusion or significant stenosis. No aneurysm. Patent dural venous sinuses. Chronic opacification right sphenoid sinus. IMPRESSION: No large vessel occlusion, aneurysm or dissection of the arteries in the head. Critical results reported by phone to Dr. Kaur at 2:39 PM 03/10/2025 ACT 112: N/A Electronically signed by Iza Elizondo 03-10-2025 2:39 PM
[2025-03-11] MEDS: CLOPIDOGREL BISULFATE 75 MG TAB PO SCH (08:06)
[2025-03-11] MEDS: CYANOCOBALAMIN (B-12) 500 MCG TABLET PO SCH (08:07)
[2025-03-11 08:10] LABS: Hematocrit (blood only) 38.0 % (37.0-47.0); Hemoglobin 12.4 g/dl (12.0-16.0); Immature Granulocytes # (auto) 0.03 K/uL (0.01-0.20); Immature Granulocytes % (auto) 0.6 %; Mean Corpuscular Hemoglobin 31.7 pg (25.0-34.0); Mean Corpuscular Volume 97.2 fL (80.0-100.0); Platelet Count 173 K/uL (130-400); RDW Standard Deviation 48.3 fL (36.4-46.3); Red Blood Count 3.91 M/uL (4.20-5.40); White Blood Count 4.94 K/ul (4.8-10.8)
[2025-03-11 09:04] LABS: Anion Gap 11.0 (3-11); Blood Urea Nitrogen 22.0 mg/dl (6-23); Calcium 9.0 mg/dl (8.6-10.3); Carbon Dioxide 24.0 mmol/L (21-32); Chloride 103.0 mmol/L (98-107); Creatinine Clr Calc Pharmacy 21.3 ml/min; Glucose 71.0 mg/dl (70-99(Fasting)); Potassium 3.8 mmol/L (3.5-5.1); Sodium 138.0 mmol/L (136-145)
--- NOTE | 2025-03-11 12:53 | Pharmacy Report ---
- Date of Service March 11, 2025 - Pharmacy CVA/TIA Medication Review Medications to Prevent Stroke handout has been added to the patients discharge packet. Antiplatelet(s) * Clopidogrel 75mg PO Daily (aspirin allergy) Cholesterol * High intensity statin: atorvastatin 40 mg daily DVT Prophylaxis * Pharmacologic and mechanical DVT prophylaxis deferred * Neuro recommendation: - CT angiogram head and neck, transthoracic echocardiogram to rule out cardiac source of emboli Therapeutic Anticoagulation * No history of Afib/Aflutter noted Type 2 Diabetes * Patient does not have T2DM
[2025-03-11] MEDS: STROKE PATIENT DISCHARGE STA (13:20)
--- NOTE | 2025-03-11 14:41 | Discharge Summary ---
Discharge Summary Date of Service March 11, 2025 Principal Dx & Hospital Course #1 = Principal Diagnosis (1) Acute cognitive decline: (2) Adult failure to thrive: (3) Major neurocognitive disorder: (4) Hypertension: (5) COPD (chronic obstructive pulmonary disease): (6) CKD (chronic kidney disease), stage IV: (7) Hypoxia: (8) Hyperlipidemia: (9) CAD (coronary artery disease): Plan The patient is a 89-year-old female who presented to the ED on 03/09/2025 with concerns of inability to take care of herself, found to have possible strokesubacute versus chronic Acute versus Subacute Left Parietal Lobe Stroke: Baseline history of severe dementia Noted on CT head, no deficits noted on exam - MR head revealing high left parietal acute vs. subacute infarct Plan: -neurology consulted, recommended head/neck angios and echo -start plavix 75mg daily (aspirin allergy) -start atorvastatin 40mg daily -check echo -PT/OT/speech, stroke order set ordered Hx severe dementia: Lives with her daughter, concerns the patient is not being well cared for Family interested in long-term placement/dementia unit Hx HTN/HLD: Continue metoprolol/amlodipine/hydralazine/colestipol Malnutrition: Consult dietitian Notes For Next Care Provider 89-year-old female who presented to the ED on 03/09/2025 after a neighbor called 911 with concerns of the patient wandering around her apartment complex more confused. The patient has a past medical history of dementia, HTN, COPD, CAD, CKD, HLD. On medicine, found to have left parietal stroke. Neurology consulted, recommended plavix, statin, neck imaging. 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 Neurosurgery at [facility] consulted, recommended transfer to [facility] for consideration of intervention. On 03/11/2025 patient medically stable for transfer. Medication Changes From Visit -see below Admission HPI Per Admitting Provider The patient is an 89-year-old female who presented to the ED on 03/09/2025 after a neighbor called 911 with concerns of the patient wandering around her apartment complex more confused. The patient has a past medical history of dementia, HTN, COPD, CAD, CKD, HLD. The patient's daughter is at bedside. She lives with her daughter Carmen, who supposedly helps with her care. They are concerned that the patient is not being well taken care of at home. The whitney gillis's daughter Megan, at bedside, would like consideration of placement on discharge for proper care. On exam, the patient denies any complaints. ROS is difficult due to mentation. Patient denies any fever/chills/chest pain/shortness of breath/nausea/vomiting/diarrhea. Patient does report not taking her medications over the past few weeks. Labs on arrival to the ED remarkable for bicarb 19, anion gap 14, BUN 30, creatinine 1.44 Viral panel negative Chest x-ray negative Head CT showed: 1. There is focal loss of manzo-white matter differentiation identified involving the high left frontal lobe cortex. This could represent a subacute or chronic infarct, and is new from the 03/09/2023 examination. Clinical correlation will be required. If warranted this could be further assessed with MRI. 2. No additional findings are suspicious for acute to subacute ischemia. 3. There is no hemorrhage or mass effect. The patient will be admitted for further management of confusion and further workup of potential stroke Discharge Exam Gen: A&O 2 NAD HEENT: NCAT, EOMI, not icteric. External ears normal. No rhinorrhea. Moist mucous membranes. Neck: Supple, full range of motion, no observable masses, No meningeal sign. Lungs: No Respiratory distress. CV: RRR, no edema. Abdomen: Soft, nondistended, No rebound tenderness. MSK: No joint swelling, no redness. Skin: No rashes, petechiae, lesions. Normal color per patient. Neuro: NIHSS of 3 points for right leg drift/hits bed, right arm drift, similar to yesterday, otherwise unremarkable other than dementia Psych: Appropriate for situation. Updated Medication List Medication Instructions Recorded Confirmed Type colestipol 1 gram tablet 2 g PO BID 11/10/19 03/09/25 History sulfasalazine 500 mg tablet 500 mg PO BID 11/10/19 03/09/25 History magnesium chloride 64 mg 64 mg PO BID #60 tabs 11/27/22 03/09/25 Rx (magnesium chloride) tablet,delayed release (Mag 64) metoprolol succinate 100 mg 100 mg PO DAILY 03/09/23 03/09/25 History tablet,extended release 24 hr amlodipine 5 mg tablet 5 mg PO BID #60 tabs 03/13/23 03/09/25 Rx thiamine HCl (vitamin B1) 100 mg 100 mg PO QAM #10 tabs 03/13/23 03/09/25 Rx tablet hydralazine 25 mg tablet 25 mg PO TID 03/09/25 03/09/25 History atorvastatin 40 mg tablet 40 mg PO QAM #30 tabs 03/11/25 Rx clopidogrel 75 mg tablet 75 mg PO QAM #30 tabs 03/11/25 Rx cyanocobalamin (vitamin B-12) 500 1,000 mcg (2 x 500 mcg) PO QAM #30 03/11/25 Rx mcg tablet tabs folic acid 1 mg tablet 1 mg PO QAM #30 tabs 03/11/25 Rx Hospital Stay Data Consultations 03/09/25 14:58 ED Decision to Admit Stat 03/10/25 08:00 Consult Neurology Routine Diagnostic Imagining Performed 03/09/25 12:32 CT head/brain wo con Stat 03/09/25 16:50 MR brain wo con Routine 03/10/25 12:56 CT angio head w con Urgent CT angio neck with con Urgent Pending Results Patient Have Any Pending Studies at Discharge: No Discharge Instructions Given to Patient (Per Discharging Provider) 1. Transfer to [facility] Total Time Total Time Spent Total Time Spent (In Minutes): I spent a total of 35 minutes in direct patient care, including [id number] time with the patient and/or family, reviewing medical records, ordering and reviewing diagnostic tests, and coordinating care with other healthcare providers. This time includes: history taking, physical examination, medical decision making, counseling, ECG interpretation, imaging interpretation, lab interpretation, orders, and education, excluding time spent in the performance of separately billed services.
[2025-03-11 19:39] VITALS: RESP 20
[2025-03-12 03:31] VITALS: BP 177/80; TEMP 97.7; O2SAT 94
[2025-03-12 06:40] LABS: Hematocrit (blood only) 37.9 % (37.0-47.0); Hemoglobin 12.5 g/dl (12.0-16.0); Immature Granulocytes # (auto) 0.04 K/uL (0.01-0.20); Immature Granulocytes % (auto) 0.7 %; Mean Corpuscular Hemoglobin 32.2 pg (25.0-34.0); Mean Corpuscular Volume 97.7 fL (80.0-100.0); Platelet Count 187 K/uL (130-400); RDW Standard Deviation 49.3 fL (36.4-46.3); Red Blood Count 3.88 M/uL (4.20-5.40); White Blood Count 5.79 K/ul (4.8-10.8)
[2025-03-12 07:08] VITALS: PULSE 70
[2025-03-12 07:11] LABS: Anion Gap 9.0 (3-11); Blood Urea Nitrogen 21.0 mg/dl (6-23); Calcium 9.0 mg/dl (8.6-10.3); Carbon Dioxide 26.0 mmol/L (21-32); Chloride 104.0 mmol/L (98-107); Creatinine Clr Calc Pharmacy 18.5 ml/min; Glucose 81.0 mg/dl (70-99(Fasting)); Potassium 3.9 mmol/L (3.5-5.1); Sodium 139.0 mmol/L (136-145)
--- NOTE | 2025-03-12 07:47 | Hospitalist Progress Note ---
Date of Service March 12, 2025 Assessment & Plan (1) Acute cognitive decline: (2) Adult failure to thrive: (3) Major neurocognitive disorder: (4) Hypertension: (5) COPD (chronic obstructive pulmonary disease): (6) CKD (chronic kidney disease), stage IV: (7) Hypoxia: (8) Hyperlipidemia: (9) CAD (coronary artery disease): Plan The patient is a 89-year-old female who presented to the ED on 03/09/2025 with concerns of inability to take care of herself, found to have possible strokesubacute versus chronic Acute versus Subacute Left Parietal Lobe Stroke: Baseline history of severe dementia Noted on CT head, no deficits noted on exam - MR head revealing high left parietal acute vs. subacute infarct Plan: -neurology consulted, recommended head/neck angios and echo -continue plavix 75mg daily (aspirin allergy) -continue atorvastatin 40mg daily -check echo -PT/OT/speech, stroke order set ordered -called for transfer, discussed with neurosurgery at [facility], accepted for possible carotid endarectomy Hx severe dementia: Lives with her daughter, concerns the patient is not being well cared for Family interested in long-term placement/dementia unit Hx HTN/HLD: Continue metoprolol/amlodipine/hydralazine/colestipol Malnutrition: Consult dietitian I spent a total of 50 minutes in direct patient care, including [id number] time with the patient and/or family, reviewing medical records, ordering and reviewing diagnostic tests, and coordinating care with other healthcare providers. This time includes: history taking, physical examination, medical decision making, counseling, ECG interpretation, imaging interpretation, lab interpretation, orders, and education, excluding time spent in the performance of separately billed services. Admission and Anticipated Discharge Date Admission Date: March 09, 2025 Subjective Patient seen and examined at bedside. Ready for transfer, comfortable. Review of Systems Review of Systems: CONSTITUTIONAL: Patient denies fevers, chills, sweats and weight changes. EYES: Patient denies any visual symptoms. EARS, NOSE, AND THROAT: No difficulties with hearing. No symptoms of rhinitis or sore throat. CARDIOVASCULAR: Patient denies chest pains, palpitations, orthopnea and paroxysmal nocturnal dyspnea. RESPIRATORY: No dyspnea on exertion, no wheezing or cough. GI: No nausea, vomiting, diarrhea, constipation, abdominal pain, hematochezia or melena. : No urinary hesitancy or dribbling. No nocturia or urinary frequency. No abnormal urethral discharge. MUSCULOSKELETAL: No myalgias or arthralgias. NEUROLOGIC: No chronic headaches, no seizures. Patient denies numbness, tingling or weakness. PSYCHIATRIC: Patient denies problems with mood disturbance. No problems with anxiety. ENDOCRINE: No excessive urination or excessive thirst. DERMATOLOGIC: Patient denies any rashes or skin changes. Physical Exam Physical Exam: Gen: A&O 2 NAD HEENT: NCAT, EOMI, not icteric. External ears normal. No rhinorrhea. Moist mucous membranes. Neck: Supple, full range of motion, no observable masses, No meningeal sign. Lungs: No Respiratory distress. CV: RRR, no edema. Abdomen: Soft, nondistended, No rebound tenderness. MSK: No joint swelling, no redness. Skin: No rashes, petechiae, lesions. Normal color per patient. Neuro: NIHSS of 3 points for right leg drift/hits bed, right arm drift, similar to yesterday, otherwise unremarkable other than dementia Psych: Appropriate for situation. Results & Data Results & Data Vital Signs (Past 12 Hours) Vital Signs Temp Pulse Pulse Resp BP Pulse Ox O2 Del Method 03/12/25 07:08 70 03/12/25 03:30 36.5 C 74 20 177/80 H 94 Room Air 03/12/25 00:45 36.4 C L 84 20 164/81 H 95 Room Air 03/11/25 21:46 76 03/11/25 20:00 Room Air
--- NOTE | 2025-03-12 07:50 | Discharge Summary ---
Discharge Summary Date of Service March 12, 2025 Principal Dx & Hospital Course #1 = Principal Diagnosis (1) Acute cognitive decline: (2) Adult failure to thrive: (3) Major neurocognitive disorder: (4) Hypertension: (5) COPD (chronic obstructive pulmonary disease): (6) CKD (chronic kidney disease), stage IV: (7) Hypoxia: (8) Hyperlipidemia: (9) CAD (coronary artery disease): Plan The patient is a 89-year-old female who presented to the ED on 03/09/2025 with concerns of inability to take care of herself, found to have possible strokesubacute versus chronic Acute versus Subacute Left Parietal Lobe Stroke: Baseline history of severe dementia Noted on CT head, no deficits noted on exam - MR head revealing high left parietal acute vs. subacute infarct Plan: -neurology consulted, recommended head/neck angios and echo -continue plavix 75mg daily (aspirin allergy) -continue atorvastatin 40mg daily -check echo -PT/OT/speech, stroke order set ordered -called for transfer, discussed with neurosurgery at [facility], accepted for possible carotid endarectomy Hx severe dementia: Lives with her daughter, concerns the patient is not being well cared for Family interested in long-term placement/dementia unit Hx HTN/HLD: Continue metoprolol/amlodipine/hydralazine/colestipol Malnutrition: Consult dietitian I spent a total of 50 minutes in direct patient care, including [id number] time with the patient and/or family, reviewing medical records, ordering and reviewing diagnostic tests, and coordinating care with other healthcare providers. This time includes: history taking, physical examination, medical decision making, counseling, ECG interpretation, imaging interpretation, lab interpretation, orders, and education, excluding time spent in the performance of separately billed services. Notes For Next Care Provider 89-year-old female who presented to the ED on 03/09/2025 after a neighbor called 911 with concerns of the patient wandering around her apartment complex more confused. The patient has a past medical history of dementia, HTN, COPD, CAD, CKD, HLD. On medicine, found to have left parietal stroke. Neurology consulted, recommended plavix, statin, neck imaging. 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 Neurosurgery at [facility] consulted, recommended transfer to [facility] for consideration of intervention. On 03/11/2025 patient medically stable for transfer. Medication Changes From Visit -see below Admission HPI Per Admitting Provider The patient is an 89-year-old female who presented to the ED on 03/09/2025 after a neighbor called 911 with concerns of the patient wandering around her apartment complex more confused. The patient has a past medical history of dementia, HTN, COPD, CAD, CKD, HLD. The patient's daughter is at bedside. She lives with her daughter Carmen, who supposedly helps with her care. They are concerned that the patient is not being well taken care of at home. The patient's daughter Megan, at bedside, would like consideration of placement on discharge for proper care. On exam, the patient denies any complaints. ROS is difficult due to mentation. Patient denies any fever/chills/chest pain/shortness of breath/nausea/vomiting/diarrhea. Patient does report not taking her medications over the past few weeks. Labs on arrival to the ED remarkable for bicarb 19, anion gap 14, BUN 30, creatinine 1.44 Viral panel negative Chest x-ray negative Head CT showed: 1. There is focal loss of manzo-white matter differentiation identified involving the high left frontal lobe cortex. This could represent a subacute or chronic infarct, and is new from the 03/09/2023 examination. Clinical correlation will be required. If warranted this could be further assessed with MRI. 2. No additional findings are suspicious for acute to subacute ischemia. 3. There is no hemorrhage or mass effect. The patient will be admitted for further management of confusion and further workup of potential stroke Discharge Exam Gen: A&O 2 NAD HEENT: NCAT, EOMI, not icteric. External ears normal. No rhinorrhea. Moist mucous membranes. Neck: Supple, full range of motion, no observable masses, No meningeal sign. Lungs: No Respiratory distress. CV: RRR, no edema. Abdomen: Soft, nondistended, No rebound tenderness. MSK: No joint swelling, no redness. Skin: No rashes, petechiae, lesions. Normal color per patient. Neuro: NIHSS of 3 points for right leg drift/hits bed, right arm drift, similar to yesterday, otherwise unremarkable other than dementia Psych: Appropriate for situation. Updated Medication List Medication Instructions Recorded Confirmed Type colestipol 1 gram tablet 2 g PO BID 11/10/19 03/09/25 History sulfasalazine 500 mg tablet 500 mg PO BID 11/10/19 03/09/25 History magnesium chloride 64 mg 64 mg PO BID #60 tabs 11/27/22 03/09/25 Rx (magnesium chloride) tablet,delayed release (Mag 64) metoprolol succinate 100 mg 100 mg PO DAILY 03/09/23 03/09/25 History tablet,extended release 24 hr amlodipine 5 mg tablet 5 mg PO BID #60 tabs 03/13/23 03/09/25 Rx thiamine HCl (vitamin B1) 100 mg 100 mg PO QAM #10 tabs 03/13/23 03/09/25 Rx tablet hydralazine 25 mg tablet 25 mg PO TID 03/09/25 03/09/25 History atorvastatin 40 mg tablet 40 mg PO QAM #30 tabs 03/11/25 Rx clopidogrel 75 mg tablet 75 mg PO QAM #30 tabs 03/11/25 Rx cyanocobalamin (vitamin B-12) 500 1,000 mcg (2 x 500 mcg) PO QAM #30 03/11/25 Rx mcg tablet tabs folic acid 1 mg tablet 1 mg PO QAM #30 tabs 03/11/25 Rx Hospital Stay Data Consultations 03/09/25 14:58 ED Decision to Admit Stat 03/10/25 08:00 Consult Neurology Routine Diagnostic Imagining Performed 03/09/25 12:32 CT head/brain wo con Stat 03/09/25 16:50 MR brain wo con Routine 03/10/25 12:56 CT angio head w con Urgent CT angio neck with con Urgent Pending Results Patient Have Any Pending Studies at Discharge: No Discharge Instructions Given to Patient (Per Discharging Provider) 1. Transfer to [facility] Total Time Total Time Spent Total Time Spent (In Minutes): I spent a total of 35 minutes in direct patient care, including [id number] time with the patient and/or family, reviewing medical records, ordering and re viewing diagnostic tests, and coordinating care with other healthcare providers. This time includes: history taking, physical examination, medical decision making, counseling, ECG interpretation, imaging interpretation, lab interpretation, orders, and education, excluding time spent in the performance of separately billed services.
== END 2025-03-12 07:45 | disposition short-term general hospital (02) | DRG 65 ==
LOC: ED 12:12 → SUATTDRO 15:07 → 2N 15:07